=== PATIENT | male | born 1930 | race Caucasian/White ===

== ENCOUNTER 2016-07-28 07:14 | Day surgery (SDC) | payer MEDICARE ==
[~2016-07-28] VITALS: Ht 180.3 cm; Wt 83.5 kg
[2016-07-28] VITALS (13 sets, daily range): BP systolic 105–152; BP diastolic 55–74; PULSE 52–63; RESP 10–16; TEMP 96.8–98.2; O2SAT 91–97; Ht 180.3 cm; Wt 83.5 kg
[~2016-07-28 07:14] MED LIST: AMIO200T2 PO; AMLO5TAB2 PO; APIX5TAB PO; CALC1TAB40 PO; CHOL100018 PO; CYAN250010 PO; FENTANYL 100mcg/2ml INJECTION IV PRN; FISH1CAP51 PO; LIDOCAINE 1% (10mg/ml) 2ml SDV INJ ONE; LIDOCAINE 1%/EPI 1:100,000 20ml MDV ONE; LR 1,000 ML IV SCH; MAGN400T6 PO; MIDAZOLAM 5mg/5ml INJECTION IV PRN; OLME20TA15 PO
--- OUTSIDE RECORDS SUMMARY | 2016-07-28 07:18 | XMS REPORT | Continuity of Care Document ---
Author Author [facility] Organization [facility] Address Unknown Phone Unavailable Support Name Relationship Address Phone TENZIN LINDO DO Caregiver [address] [place] [address] Unavailable BRAYDEN MARMOLEJO MD Caregiver [address] [place] [address] [place] [address] Unavailable DRAGAN MCMANUS Next Of Kin [address] [place], [place] [id number] Insurance Providers Guarantor Remberto Mcmanus Address [address] [place] [address] Email NO TO PORTAL 16 Payer Medicare Policy Number [id number] Subscriber's Name Remberto Mcmanus Relationship [address] [facility] Policy Number [id number] Subscriber's Name Remberto Mcmanus Relationship 18 Self Advance Directives Directive Response Recorded Date/Time Advanced Directives Type None 05/18/16 12:15pm Chief Complaint and Reason for Visit Chief Complaint Fall Reason for Visit [id number] Fall on same level Problems Active Problems Medical Problem Onset Date Status Atrial fibrillation 03/21/2014 Acute Fall on same level Unknown Acute Forehead laceration Unknown Acute Multiple abrasions Unknown Acute Medications Current Home Medications Medication Dose Units Route Directions Days Qty Instructions Start Date Amiodarone Hcl 200 Mg Tablet 200 Mg Oral Daily 05/18/16 Amlodipine Besylate 5 Mg Tablet 5 Mg Oral Daily 12/25/15 Apixaban (Eliquis) 5 Mg Tablet 5 Mg Oral Twice A Day 12/25/15 Benzonatate 100 Mg Capsule 100 Mg Oral Three Times A Day as needed for Cough 05/18/16 Calcium Citrate/Vitamin D3 (Citracal + D Caplet) 1 Each Tablet 1 Tab Oral Daily 06/05/13 Cholecalciferol (Vitamin D3) 1,000 Unit Tablet 1 Tab Oral Daily 03/20/14 Cyanocobalamin (Vitamin B-12) (Vitamin B12) Unknown Strength Tablet Unknown Dose Oral Daily 05/18/16 Magnesium Oxide Unknown Strength Tablet Unknown Dose Oral Daily 05/18/16 Olmesartan Medoxomil 20 Mg Tablet 20 Mg Oral Daily 05/18/16 [place]-3 Fatty Acids/Fish Oil ([place] 3 Fish Oil Softgel) 1 Each Capsule.dr Lo Tab Oral Twice A Day 06/05/13 Past Home Medications Medication Directions Ordered Status Amiodarone Hcl (Pacerone) 200 Mg Tablet, 400 Mg Oral Three Times A Day for Last Dose 03/27/14 Pm 03/21/14 Discontinued Metoprolol Tartrate 25 Mg Tablet, 12.5 Mg Oral Twice A Day 03/20/14 Discontinued Social History Social History Problem Response Recorded Date/Time Onset Date Status Chewing Tobacco Status No 06/11/2013 7:39am Not Applicable Not Applicable Hx Substance Use No 05/18/2016 12:15pm Not Applicable Not Applicable Hx Alcohol Use Y 2 BEERS PER DAY 05/18/2016 12:15pm Not Applicable Not Applicable Has the pt used tobacco in the last 12 months No 12/26/2015 7:28am Not Applicable Not Applicable Query Response Start Date Stop Date Smoking Status Never smoker Hospital Discharge Instructions No hospital discharge instructions. Plan of Care Discharge Date 05/18/16 2:59pm Disposition 01 DISCHARGED HOME, SELF-CARE Condition at Discharge Improved Instructions/Education Provided How to Care for a Laceration After Repair Prescriptions See Medication Section Referrals TENZIN LINDO DO Address: [address] [place] [address], [place] [phone] Note: Call for appointment sutures out in one week Care Plan and Goals Physician Care Plan Problem: Fall from same, laceration repair, multiple abrasions Goal: Follow up with primary care provider Instructions: Take medications and follow care plan as discussed/written Functional Status No functional status results. Allergies, Adverse Reactions, Alerts No known allergies. Immunizations Immunization Event Date Type Not Given Reason Dose Number Lot Number Auto Glass [employer]er VIS Given Td (adult), adsorbed 05/18/16 Administered 1 [id number] [employer] 05/18/16 Query Response on File Recorded Date/Time Hx Influenza Vaccination Y JAN 2015 12/26/15 7:28am Hx Pneumococcal Vaccination No 12/26/15 7:28am Hx Tetanus, Diptheria, Pertussis No 04/12/14 2:07pm Hx Influenza Vaccination Y JAN 2015 12/26/15 7:28am Hx Tetanus Diptheria Y 05/18/16 05/18/16 2:56pm Hx Tetanus, Diptheria, Pertussis No 04/12/14 2:07pm Hx Tetanus Toxoid Vaccination No 05/18/16 2:56pm Tetanus Diptheria Vaccine History 05/18/16 05/18/16 1:16pm Vital Signs Acute Vital Signs Vital Response Date/Time Temperature (Fahrenheit) 98.2 deg F (96.8 - 99.1) 05/18/2016 12:15pm Temperature (Calculated Celsius) 36.36433 degrees C (36.0 - 37.3) 05/18/2016 12:15pm Pulse Rate (adult) 70 bpm (60 - 100) 05/18/2016 2:58pm Respiratory Rate 16 breaths/min (10 - 20) 05/18/2016 2:58pm O2 Sat by Pulse Oximetry 93 % (90 - 100) 05/18/2016 2:58pm Blood Pressure 153/67 mm Hg 05/18/2016 2:58pm Height (Feet) 6 feet 05/18/2016 12:15pm Height (Inches) 0 inches 05/18/2016 12:15pm Weight (Kilograms) 81.800 kg 05/18/2016 12:15pm Body Mass Index (BMI) 24.0 05/18/2016 12:15pm Results Name: REMBERTO MCMANUS Unit #: [id number] : 1930 Sex: M Admit Date: Loc / Svc: ED Discharge Date: DIAGNOSTIC IMAGING REPORT Report #: [id number] [facility] Per NAHUN Indication: ITS.REASON: fall anterior scalp injury anticoagulated PROCEDURE: CT HEAD W/O CONTRAST: Encounter: Initial Comparison: None Technique: Axial CT images through the head were performed without contrast. Iterative Reconstruction dose reducing technique was utilized. FINDINGS: Moderate generalized atrophy. The ventricles are of normal size, shape, and configuration for the patient's age. There is no evidence of acute intracranial hemorrhage, midline displacement, or mass effect. There are scattered areas of low attenuation in the white matter which most likely represent changes of chronic microvascular ischemia. The CT attenuation of the brain parenchyma is otherwise normal within the cerebellum, brain stem, and cerebral hemispheres. The tympanic cavities and mastoid air cells are free of appreciable disease. There are no definite fractures of the skull base, calvarium, or visualized portion of the midface. Right-sided sinus surgery and evidence of chronic sinusitis. Right frontal scalp laceration. IMPRESSION: No CT evidence of acute traumatic intracranial injury. . Procedures Procedure Status Date Provider(s) Chest x-ray 2vw frontal&latl Completed 04/07/16 Encounters Encounter Location Arrival/Admit Date Discharge/Depart Date Attending Provider Registered Emergency Room [facility] 05/18/16 12:12pm BRAYDEN MARMOLEJO MD Registered Clinic [facility] 04/07/16 12:20pm VINNY GIORDANO Recent Diagnosis
--- OUTSIDE RECORDS SUMMARY | 2016-07-28 07:18 | XMS REPORT | Continuity of Care Document ---
Author Author [facility] Organization [facility] Address Unknown Phone Unavailable Support Name Relationship Address Phone DARION SULLIVAN MD Caregiver [facility] [address] [place] [address] [address] [place] [address] TASHA LOERA DO Caregiver [facility] [address] [place] [address] [address] [place] [address] DRAGAN MCMANUS Next Of Kin [address] [place] [address] Insurance Providers Payer Name Policy Number Subscriber Name Relationship Medicare [id number] Remberto Mcmanus 18 Self [facility] [id number] Remberto Mcmanus 18 Self Advance Directives Directive Response Recorded Date/Time Ordered Resuscitation Status Full Code 03/20/14 8:29am Chief Complaint and Reason for Visit Chief Complaint ATRIAL FIB Reason for Visit Atrial fibrillation Problems Medical Problems Problem Onset Date Status Atrial fibrillation 03/21/2014 Active Medications Medication Dose Route Sig Days/Qty Instructions Order Date Discontinued Date Status Olmesartan Medoxomil 10 Mg PO NEEDED 06/05/13 Active Aspirin 81 Mg PO DAILY 06/05/13 Active Calcium Citrate/Vitamin D3 2 Each PO DAILY 06/05/13 Active [place]-3 Fatty Acids/Fish Oil 2 Each PO TWICE A DAY 06/05/13 Active Trazodone HCl 50 Mg PO BEDTIME 03/14/14 Active Docusate Sodium 2 Tab PO TWICE A DAY 03/15/14 Active Sennosides 2 Tab PO DAILY 03/15/14 Active Metoprolol Tartrate 12.5 Mg PO TWICE A DAY 60 Qty 03/20/14 03/21/14 Discontinued Cholecalciferol 2 Tab PO TWICE A DAY 03/20/14 Active Amiodarone HCl 400 Mg PO THREE TIMES A DAY For Last dose 03/27/14 PM 6 Days 03/21/14 Active Amiodarone HCl 200 Mg PO DAILY For First dose 03/28/14 AM 30 Qty Active Social History Social History Problem Response Recorded Date/Time Smoking Status Heavy Smoker 03/20/2014 8:27am When did patient START smoking? 38 yrs old 03/20/2014 8:27am When did patient STOP smoking? 68 yrs old 03/20/2014 8:27am Chewing Tobacco Status No 06/11/2013 7:39am Hx Substance Use No 03/14/2014 9:49am Hx Alcohol Use Y BEER OCCASIONALLY 03/14/2014 9:49am Has the pt used tobacco in the last 12 months No 03/20/2014 8:27am Query Response Start Date Stop Date Smoking Status Former smoker Hospital Discharge Instructions Instructions: Care Instructions: Reason for Hospitalization: Atrial Fibrillation I was in the hospital because (patient own words): to check the heart rhythm Discharge Diet: Heart Healthy Discharge Activity: No restrictions. Follow Up Appointments: Keep scheduled appointments as directed or call [phone] to schedule an appointment in the next month. Condition at time of discharge: Fair Plan of Care Discharge Date 03/21/14 11:55am Disposition 01 DISCHARGED HOME, SELF-CARE Instructions/Education Provided Atrial Fibrillation Prescriptions See Medications Section Functional Status Query Response Date Recorded Physical Hygiene Self March 21, 2014 11:27am Disabilities Hearing March 21, 2014 11:27am Devices Used Glasses March 21, 2014 11:27am Dressing Self March 21, 2014 11:27am Ambulation Self March 21, 2014 11:27am Diet Self March 21, 2014 11:27am Mental Status Alert Oriented March 21, 2014 11:27am Disabilities Hearing March 21, 2014 11:27am Devices Used Glasses March 21, 2014 11:27am Physical Hygiene Self March 21, 2014 11:27am Dressing Self March 21, 2014 11:27am Ambulation Self March 21, 2014 11:27am Diet Self March 21, 2014 11:27am Allergies, Adverse Reactions, Alerts Allergen Type Severity Reaction Status Last Updated No Known Allergies Active 03/20/14 Immunizations Name Given Type Hx Influenza Vaccination Y 2013 Historical Hx Pneumococcal Vaccination Y MAY 2013 Historical Hx Influenza Vaccination Y 2013 Historical Vital Signs Acute Vital Signs Vital Response Date/Time Temperature (Fahrenheit) 97.1 deg F (96.8 - 99.1) Temperature (Calculated Celsius) 36.27047 degrees C (36.0 - 37.3) Temperature Source Temporal Pulse Rate (adult) 60 bpm (60 - 100) Respiratory Rate 21 breaths/min (10 - 20) O2 Sat by Pulse Oximetry 94 % (90 - 100) Oxygen Delivery Method Room Air Blood Pressure 161/79 mm Hg Blood Pressure Source Automatic Cuff Height 5 ft 11.5 in Weight 166 lb Body Mass Index 22.0 kg/m^2 Results Test Source Date Result Interp. Ref. Range Comments Alanine Aminotransferase (ALT/SGPT) March 20, 2014 8:43am 64 U/L N 21 -72 COMMENT NURSE WILL CALL WHEN PT ARRIVES Albumin March 20, 2014 8:43am 3.8 G/DL N 3.5-5.0 COMMENT NURSE WILL CALL WHEN PT ARRIVES Albumin/Globulin Ratio March 20, 2014 8:43am 1.5 RATIO N 1.1-2.2 COMMENT NURSE WILL CALL WHEN PT ARRIVES Alkaline Phosphatase March 20, 2014 8:43am 53 U/L N 38-126 COMMENT NURSE WILL CALL WHEN PT ARRIVES Anion Gap March 21, 2014 4:46am 7 MEQ/L N 5-15 Aspartate Amino Transf (AST/SGOT) March 20, 2014 8:43am 29 U/L N 17- 59 COMMENT NURSE WILL CALL WHEN PT ARRIVES BUN/Creatinine Ratio March 21, 2014 4:46am 18 RATIO N 6-26 Basophils # (Auto) March 20, 2014 8:43am 0.1 T/MM3 N 0-0.2 COMMENT NURSE WILL CALL WHEN PATIENT ARRIVES Basophils (%) (Auto) March 20, 2014 8:43am 0.8 % N 0-2 COMMENT NURSE WILL CALL WHEN PATIENT ARRIVES Blood Urea Nitrogen March 21, 2014 4:46am 20.0 MG/DL N 9-20 Calcium Level March 21, 2014 4:46am 9.3 MG/DL N 8.4-10.2 Calculated Osmolality March 21, 2014 4:46am 264 MOSM/KG N 261-280 Carbon Dioxide Level March 21, 2014 4:46am 27 MEQ/L N 22-30 Chemistry Specimen Hemolysis March 21, 2014 4:46am < 15 0-25 0-25 : No Hemolysis.26-70: Slight Hemolysis - can falsely elevate K and Urine Protein. 71-285: Moderate Hemolysis - can falsely elevate K, Troponin I, CA 19-9, PTH, CSF GLucose, and Urine Protein, and can falsely decrease Phenytoin. 286-999: Gross Hemolysis - can falsely elevate K, Troponin I, CA 19-9, PTH, CSF Glucose, and Urine Protine, and can falsely decrease Phenytoin. Recommend specimen recollection. Chloride Level March 21, 2014 4:46am 102 MEQ/L N 98-107 Creatine Kinase MB March 15, 2014 12:25pm 2.0 NG/ML N 0-3.4 COMMENT already have blood Creatinine March 21, 2014 4:46am 1.1 MG/DL N 0.8-1.5 Eosinophils # (Auto) March 20, 2014 8:43am 0.1 T/MM3 N 0-0.5 COMMENT NURSE WILL CALL WHEN PATIENT ARRIVES Eosinophils (%) (Auto) March 20, 2014 8:43am 1.1 % N 0-4 COMMENT NURSE WILL CALL WHEN PATIENT ARRIVES Free Thyroxine March 20, 2014 8:43am 1.00 NG/DL N 0.78-2.19 COMMENT NURSE WILL CALL WHEN PT ARRIVES Globulin March 20, 2014 8:43am 2.5 G/DL N 2.4-3.6 COMMENT NURSE WILL CALL WHEN PT ARRIVES Glomerular Filtration Rate Calc March 21, 2014 4:46am 64 - Glucose Level March 21, 2014 4:46am 86 MG/DL N 75-110 Hematocrit March 20, 2014 8:43am 42.7 % N 41-53 COMMENT NURSE WILL CALL WHEN PATIENT ARRIVES Hemoglobin March 20, 2014 8:43am 14.8 GM/DL N 13.5-17.5 COMMENT NURSE WILL CALL WHEN PATIENT ARRIVES Icterus Index March 21, 2014 4:46am < 2 0-7 Immature Granulocyte # (Auto) March 20, 2014 8:43am 0.00 T/MM3 N 0.00 -0.03 COMMENT NURSE WILL CALL WHEN PATIENT ARRIVES Immature Granulocyte % (Auto) March 20, 2014 8:43am 0.0 % N 0.0-0.5 COMMENT NURSE WILL CALL WHEN PATIENT ARRIVES Lymphocytes # (Auto) March 20, 2014 8:43am 1.2 T/MM3 N 1-4.8 COMMENT NURSE WILL CALL WHEN PATIENT ARRIVES Lymphocytes (%) (Auto) March 20, 2014 8:43am 18.3 % L 23-45 COMMENT NURSE WILL CALL WHEN PATIENT ARRIVES Magnesium Level March 21, 2014 4:46am 2.0 MG/DL N 1.6-2.3 Mean Corpuscular Hemoglobin March 20, 2014 8:43am 33.0 UUG N 26-34 COMMENT NURSE WILL CALL WHEN PATIENT ARRIVES Mean Corpuscular Hemoglobin Concent March 20, 2014 8:43am 34.7 GM/DL N 31-37 COMMENT NURSE WILL CALL WHEN PATIENT ARRIVES Mean Corpuscular Volume March 20, 2014 8:43am 95.3 UM3 N 80-100 COMMENT NURSE WILL CALL WHEN PATIENT ARRIVES Mean Platelet Volume March 20, 2014 8:43am 11.7 UM3 N 9.4-12.4 COMMENT NURSE WILL CALL WHEN PATIENT ARRIVES Monocytes # (Auto) March 20, 2014 8:43am 0.6 T/MM3 N 0-0.8 COMMENT NURSE WILL CALL WHEN PATIENT ARRIVES Monocytes (%) (Auto) March 20, 2014 8:43am 8.3 % N 0-9.0 COMMENT NURSE WILL CALL WHEN PATIENT ARRIVES Neutrophils # (Auto) March 20, 2014 8:43am 4.8 T/MM3 N 1.8-7.7 COMMENT NURSE WILL CALL WHEN PATIENT ARRIVES Neutrophils (%) (Auto) March 20, 2014 8:43am 71.5 % H 33-66 COMMENT NURSE WILL CALL WHEN PATIENT ARRIVES Platelet Count March 20, 2014 8:43am 108 T/MM3 L 130-400 COMMENT NURSE WILL CALL WHEN PATIENT ARRIVES Potassium Level March 21, 2014 4:46am 4.0 MEQ/L N 3.6-5 RDW Standard Deviation March 20, 2014 8:43am 41.3 FL N 36.9-50.2 COMMENT NURSE WILL CALL WHEN PATIENT ARRIVES Red Blood Count March 20, 2014 8:43am 4.48 M/MM3 L 4.50-5.90 COMMENT NURSE WILL CALL WHEN PATIENT ARRIVES Sodium Level March 21, 2014 4:46am 136 MEQ/L N 134-144 Thyroid Stimulating Hormone (TSH) March 20, 2014 8:43am 2.01 MIU/L N 0.47-4.68 COMMENT NURSE WILL CALL WHEN PT ARRIVES Total Bilirubin March 20, 2014 8:43am 0.70 MG/DL N 0.20-1.30 COMMENT NURSE WILL CALL WHEN PT ARRIVES Total Creatine Kinase March 15, 2014 12:25pm 60 U/L N 55-170 COMMENT already have blood Total Protein March 20, 2014 8:43am 6.3 G/DL N 6.3-8.2 COMMENT NURSE WILL CALL WHEN PT ARRIVES Troponin I March 15, 2014 12:25pm < 0.012 ng/ml 0-0.12 COMMENT already have blood Turbidity March 21, 2014 4:46am < 20 0-20 White Blood Count March 20, 2014 8:43am 6.7 T/MM3 N 4.5-11.0 COMMENT NURSE WILL CALL WHEN PATIENT ARRIVES Name: REMBERTO MCMANUS Unit #: [id number] : 1930 Sex: M Loc / Svc: SRG DOS: 03/15/14 Signed Report #: [id number] DIAGNOSTIC IMAGING REPORT TYPE OF EXAM: CHEST, PA & LATERAL Dictated By: FABIAN BOATENG MD INDICATION: ITS.REASON: irregular heart rhythm COMPARISON: none. CHEST, PA LATERAL: Tortuous thoracic aorta. Normal heart size. No evidence of lung infiltrate or CHF. There are monitoring leads. IMPRESSION: Normal for age. . Procedures Procedure Status Date Provider(s) ROUTINE VENIPUNCTURE completed 03/15/14 CHEST X-RAY 2VW FRONTAL&LATL completed 03/15/14 METABOLIC PANEL TOTAL CA completed 03/15/14 ASSAY OF CK (CPK) completed 03/15/14 CREATINE MB FRACTION completed 03/15/14 ASSAY OF MAGNESIUM completed 03/15/14 ASSAY THYROID STIM HORMONE completed 03/15/14 ASSAY OF TROPONIN QUANT completed 03/15/14 COMPLETE CBC W/AUTO DIFF WBC completed 03/15/14 ELECTROCARDIOGRAM TRACING completed 03/15/14 TTE W/DOPPLER COMPLETE completed 03/15/14 [id number]"RINGERS LACTATE INFUSION, UP TO 1000 CC" completed 03/15/14 Encounters Encounter Location Date/Time Discharged Inpatient [facility] 03/20/14 8:03am Recent Diagnosis Atrial fibrillation
--- OUTSIDE RECORDS SUMMARY | 2016-07-28 07:18 | XMS REPORT | Continuity of Care Document ---
Author Author [facility] LIVE Organization [facility]IVE Address Unknown Phone Unavailable Support Name Relationship Address Phone DARION SULLIVAN MD Caregiver [facility] [address] [place] [address] ADRIENNE SALAZAR [address] [place], [place] [phone] TASHA LOERA DO Caregiver [facility] [address] [place] [address] [address] [place], [place] [phone] DRAGAN MCMANUS Next Of Kin [address] [place] [address] Insurance Providers Payer Name Policy Number Subscriber Name Relationship Medicare [id number] Remberto Mcmanus 18 Self [facility] [id number] Remberto Mcmanus 18 Self Advance Directives Directive Response Recorded Date/Time Ordered Resuscitation Status Full Code 04/12/14 1:50pm Resuscitation Documents on File N pt verbally states Full Code 04/12/14 2: 03pm Problems Medical Problems Problem Onset Date Status Atrial fibrillation 03/21/2014 Active Medications Medication Dose Route Sig Days/Qty Instructions Order Date Discontinued Date Status Olmesartan Medoxomil 10 Mg PO NEEDED 06/05/13 Active Aspirin 81 Mg PO DAILY 06/05/13 Active Calcium Citrate/Vitamin D3 2 Each PO DAILY 06/05/13 Active [place]-3 Fatty Acids/Fish Oil 2 Each PO TWICE [...] Last dose 03/27/14 PM 6 Days 03/21/14 04/12/14 Discontinued Amiodarone HCl 200 Mg PO DAILY For First dose 03/28/14 AM 30 Qty Active Social History Social History Problem Response Recorded Date/Time Chewing Tobacco Status No 06/11/2013 7:39am Hx Substance Use No 03/14/2014 9:49am Hx Alcohol Use Y BEER OCCASIONALLY 03/14/2014 9:49am Has the pt used tobacco in the last 12 months No 04/12/2014 2:10pm Query Response Start Date Stop Date Smoking Status Former smoker Hospital Discharge Instructions Instructions: Care Instructions: Reason for Hospitalization: Atrial Fibrillation I was in the hospital because (patient own words): to check the heart rhythm Discharge Diet: Heart Healthy Discharge Activity: No restrictions. Follow Up Appointments: Keep scheduled appointments as directed or call [phone] to schedule an appointment in the next month. Condition at time of discharge: Fair Wound/Incision Care: USUAL CARE FOR CHRONIC RASH OF HIS BACK Notify Physician If: SIGNIFICANT NEW OR WORSENING SYMPTOMS Condition at time of discharge: Good General Information: n/a Condition at time of discharge: Fair Condition at time of discharge: Good rate >100, confusion, or persistent nausea/vomitting. 2.Severe pain, swelling, redness, or warmth in either of your legs. 3.During office hours, call [phone]. After hours, please call [facility] at [phone], and have the hot sealing machine operator page your Surgeon IN THE EVENT OF AN EMERGENCY, seek medical care at the nearest Emergency Room Condition at time of discharge: Good Plan of Care Discharge Date 03/21/14 11:55am Instructions/Education Provided Atrial Fibrillation Prescriptions See Medications Section Functional Status Query Response Date Recorded Physical Hygiene Self March 21, 2014 11:27am Physical Hygiene Self March 21, 2014 11:27am Allergies, Adverse Reactions, Alerts Allergen Type Severity Reaction Status Last Updated No Known Allergies Active 03/20/14 Immunizations Name Given Type Hx Influenza Vaccination Y 03/15 Historical Hx Pneumococcal Vaccination Y 02/11 Historical Hx Tetanus, Diptheria, Pertussis No Historical Hx Influenza Vaccination Y 03/15 Historical Hx Tetanus Diptheria No Historical Hx Tetanus, Diptheria, Pertussis No Historical Hx Tetanus Toxoid Vaccination No Historical Vital Signs Acute Vital Signs Vital Response Date/Time Temperature (Fahrenheit) 98.1 deg F (96.8 - 99.1) Temperature (Calculated Celsius) 36.07060 degrees C (36.0 - 37.3) Temperature Source Temporal Pulse Rate (adult) 71 bpm (60 - 100) Respiratory Rate 21 breaths/min (10 - 20) O2 Sat by Pulse Oximetry 92 % (90 - 100) Oxygen Delivery Method Room Air Blood Pressure 164/74 mm Hg Blood Pressure Source Automatic Cuff Height 5 ft 11.75 in Weight 166 lb Body Mass Index [...] WILL CALL WHEN PT ARRIVES Anion Gap April 12, 2014 1:58pm 5 MEQ/L N 5-15 Aspartate Amino Transf (AST/SGOT) March 20, 2014 8:43am 29 U/L N 17- 59 COMMENT NURSE WILL CALL WHEN PT ARRIVES BUN/Creatinine Ratio April 12, 2014 1:58pm 16 RATIO N 6-26 Basophils # (Auto) April 12, 2014 1:58pm 0.0 T/MM3 N 0-0.2 Basophils (%) (Auto) April 12, 2014 1:58pm 0.4 % N 0-2 Blood Urea Nitrogen April 12, 2014 1:58pm 16.0 MG/DL N 9-20 Calcium Level April 12, 2014 1:58pm 9.4 MG/DL N 8.4-10.2 Calculated Osmolality April 12, 2014 1:58pm 265 MOSM/KG N 261-280 Carbon Dioxide Level April 12, 2014 1:58pm 29 MEQ/L N 22-30 Chemistry Specimen Hemolysis April 12, 2014 1:58pm < 15 0-25 0-25 : No Hemolysis.26-70: [...] decrease Phenytoin. Recommend specimen recollection. Chloride Level April 12, 2014 1:58pm 103 MEQ/L N 98-107 Creatine Kinase MB March 15, 2014 12:25pm 2.0 NG/ML N 0-3.4 COMMENT already have blood Creatinine April 12, 2014 1:58pm 1.0 MG/DL N 0.8-1.5 Eosinophils # (Auto) April 12, 2014 1:58pm 0.2 T/MM3 N 0-0.5 Eosinophils (%) (Auto) April 12, 2014 1:58pm 2.1 % N 0-4 Free Thyroxine March 20, 2014 8:43am 1.00 NG/DL N 0.78-2.19 COMMENT NURSE WILL CALL WHEN PT ARRIVES Globulin March 20, 2014 8:43am 2.5 G/DL N 2.4-3.6 COMMENT NURSE WILL CALL WHEN PT ARRIVES Glomerular Filtration Rate Calc April 12, 2014 1:58pm 71 - Glucose Level April 12, 2014 1:58pm 105 MG/DL N 75-110 Hematocrit April 12, 2014 1:58pm 41.3 % N 41-53 Hemoglobin April 12, 2014 1:58pm 14.3 GM/DL N 13.5-17.5 Icterus Index April 12, 2014 1:58pm < 2 0-7 Immature Granulocyte # (Auto) April 12, 2014 1:58pm 0.03 T/MM3 N 0.00 -0.03 Immature Granulocyte % (Auto) April 12, 2014 1:58pm 0.3 % N 0.0-0.5 Lymphocytes # (Auto) April 12, 2014 1:58pm 0.7 T/MM3 L 1-4.8 Lymphocytes (%) (Auto) April 12, 2014 1:58pm 7.2 % L 23-45 Magnesium Level March 21, 2014 4:46am 2.0 MG/DL N 1.6-2.3 Mean Corpuscular Hemoglobin April 12, 2014 1:58pm 33.3 UUG N 26-34 Mean Corpuscular Hemoglobin Concent April 12, 2014 1:58pm 34.6 GM/DL N 31-37 Mean Corpuscular Volume April 12, 2014 1:58pm 96.0 UM3 N 80-100 Mean Platelet Volume April 12, 2014 1:58pm 10.8 UM3 N 9.4-12.4 Monocytes # (Auto) April 12, 2014 1:58pm 0.6 T/MM3 N 0-0.8 Monocytes (%) (Auto) April 12, 2014 1:58pm 6.6 % N 0-9.0 Neutrophils # (Auto) April 12, 2014 1:58pm 7.7 T/MM3 N 1.8-7.7 Neutrophils (%) (Auto) April 12, 2014 1:58pm 83.4 % H 33-66 Platelet Count April 12, 2014 1:58pm 109 T/MM3 L 130-400 Potassium Level April 12, 2014 1:58pm 4.4 MEQ/L N 3.6-5 RDW Standard Deviation April 12, 2014 1:58pm 41.7 FL N 36.9-50.2 Red Blood Count April 12, 2014 1:58pm 4.30 M/MM3 L 4.50-5.90 Sodium Level April 12, 2014 1:58pm 137 MEQ/L N 134-144 Thyroid Stimulating Hormone (TSH) [...] ng/ml 0-0.12 COMMENT already have blood Turbidity April 12, 2014 1:58pm < 20 0-20 White Blood Count April 12, 2014 1:58pm 9.3 T/MM3 N 4.5-11.0 Name: REMBERTO MCMANUS Unit #: [id number] : 1930 Sex: M Loc / Svc: Ruby DOS: 03/15/14 Signed Report #: [id number] DIAGNOSTIC IMAGING REPORT TYPE OF EXAM: CHEST, PA & LATERAL Dictated By: FABIAN BOATENG MD INDICATION: ITS.REASON: irregular heart rhythm COMPARISON: none. CHEST, PA LATERAL: Tortuous thoracic aorta. Normal heart size. No evidence of lung infiltrate or CHF. There are monitoring leads. IMPRESSION: Normal for age. . Procedures Procedure Status Date Provider(s) ROUTINE VENIPUNCTURE completed 03/20/14 ROUTINE VENIPUNCTURE completed 03/20/14 METABOLIC PANEL TOTAL CA completed 03/20/14 COMPREHEN METABOLIC PANEL completed 03/20/14 ASSAY OF MAGNESIUM completed 03/20/14 ASSAY OF MAGNESIUM completed 03/20/14 ASSAY OF FREE THYROXINE completed 03/20/14 ASSAY THYROID STIM HORMONE completed 03/20/14 COMPLETE CBC W/AUTO DIFF WBC completed 03/20/14 ELECTROCARDIOGRAM TRACING completed 03/20/14 ELECTROCARDIOGRAM TRACING completed 03/20/14 [id number] ITEM OR SERVICE completed 03/20/14 [id number] ITEM OR SERVICE completed 03/20/14 [id number] ITEM OR SERVICE completed 03/20/14 [id number] ITEM OR SERVICE completed 03/20/14 [id number]"HOSPITAL OBSERVATION SERVICE, PER HOUR" completed 03/20/14 [id number]"HOSPITAL OBSERVATION SERVICE, PER HOUR" completed 03/20/14 [id number]"HOSPITAL OBSERVATION SERVICE, PER HOUR" completed 03/20/14 [id number]"HOSPITAL OBSERVATION SERVICE, PER HOUR" completed 03/20/14 [id number]"HOSPITAL OBSERVATION SERVICE, PER HOUR" completed 03/20/14 [id number] ADMISSION OF PATIENT FOR HOSPITAL OBSERVATION C completed Inguinal hernia repair completed 03/15/14 AZRA GOODE MD Encounters Encounter Location Date/Time Departed Clinic [facility] 04/12/14 12:57pm Discharged Inpatient [facility] 03/20/14 8:03am Registered Clinic [facility] 03/15/14 11:26am
--- OUTSIDE RECORDS SUMMARY | 2016-07-28 07:18 | XMS REPORT | Continuity of Care Document ---
Author Author [facility] Organization [facility] Address Unknown Phone Unavailable Support Name Relationship Address Phone AZRA GOODE MD Caregiver [facility] [address] [place] [phone] TASHA LOERA DO Caregiver [address] [place] [id number] DRAGAN MCMANUS Next Of Kin [address] [place], [place] [phone] Insurance Providers Payer Name Policy Number Subscriber Name Relationship Medicare [id number] Remberto Mcmanus 18 Self [facility] [id number] Remberto Mcmanus Self Advance Directives Directive Response Recorded Date/Time Ordered Resuscitation Status Full Code 05/09/14 12:27pm Resuscitation Documents on File No 05/09/14 8:36am Problems Medical Problems Problem Onset Date Status Atrial fibrillation 03/21/2014 Active Medications Medication Dose Route Sig Days/Qty Instructions Order Date Discontinued Date Status Olmesartan Medoxomil 10 Mg PO DAILY 06/05/13 Active Aspirin 81 Mg PO DAILY 06/05/13 Active Calcium Citrate/Vitamin D3 2 Each PO DAILY 06/05/13 Active [place]-3 Fatty Acids/Fish Oil 2 Each PO TWICE A DAY 06/05/13 Active Docusate Sodium 2 Tab PO TWICE A DAY 03/15/14 Active Sennosides 2 Tab PO NEEDED 03/15/14 Active Metoprolol Tartrate 12.5 Mg PO TWICE A DAY 60 Qty 03/20/14 03/21/14 Discontinued Cholecalciferol 2 Tab PO DAILY 03/20/14 Active Amiodarone HCl 400 Mg PO THREE TIMES A DAY For Last dose 03/27/14 PM 6 Days 03/21/14 04/12/14 Discontinued Amiodarone HCl 200 Mg PO DAILY For First dose 03/28/14 AM 30 Qty Active Polyethylene Glycol 3350 17 G PO NEEDED Take 17 Grams (1 capful), by mouth, once a day. 05/10/14 Active Glycerin 1 Supp RC NEEDED 05/10/14 Active Social History Social History Problem Response Recorded Date/Time Chewing Tobacco Status No 06/11/2013 7:39am Hx Substance Use No 05/09/2014 8:35am Hx Alcohol Use Y BEER OCCASIONALLY 05/09/2014 8:35am Has the pt used tobacco in the last 12 months No 05/09/2014 8:35am Query Response Start Date Stop Date Smoking Status Never smoker Hospital Discharge Instructions Instructions: Care Instructions: Reason for Hospitalization: Atrial Fibrillation I was in the hospital because (patient own words): to check the heart rhythm Discharge Diet: Heart Healthy Discharge Activity: No restrictions. Follow Up Appointments: Keep scheduled appointments as directed or call [phone] to schedule an appointment in the next month. Condition at time of discharge: Fair Good Notify Physician If: During the week: If you have questions about your care or wound, Call Dr. Goode's office at [phone]. During the evening or on the weekends: If you have questions about your care or wound, Call [facility] at [phone] and have the fur mixer operator page Dr. Goode. Condition at time of discharge: Good 7.2 Congenital Heart Disease Screening Result: Pass Plan of Care Discharge Date 03/21/14 11:55am [...] Vital Signs Vital Response Date/Time Temperature (Fahrenheit) 98.3 deg F (96.8 - 99.1) Temperature (Calculated Celsius) 36.14549 degrees C (36.0 - 37.3) Temperature Source Temporal Pulse Rate (adult) 65 bpm (60 - 100) Respiratory Rate 16 breaths/min (10 - 20) O2 Sat by Pulse Oximetry 95 % (90 - 100) Oxygen Delivery Method Room Air Blood Pressure 154/74 mm Hg Blood Pressure Source Automatic Cuff Height 6 ft 0 in Weight 163 lb Body Mass Index 22.0 kg/m^2 Results [...] 12, 2014 1:58pm 29 MEQ/L N 22-30 Chloride Level April 12, 2014 1:58pm 103 [...] COMMENT NURSE WILL CALL WHEN PT ARRIVES Glucose Level April 12, 2014 1:58pm 105 MG/DL N 75-110 Hematocrit April 12, 2014 1:58pm 41.3 % N 41-53 Hemoglobin April 12, 2014 1:58pm 14.3 GM/DL N 13.5-17.5 Lymphocytes # (Auto) April 12, 2014 1:58pm [...] 0.012 ng/ml 0-0.12 COMMENT already have blood White Blood Count April 12, 2014 1:58pm 9.3 T/MM3 N 4.5-11.0 Chemistry Specimen Hemolysis April 12, 2014 1:58pm [...] can falsely decrease Phenytoin. Recommend specimen recollection. Turbidity April 12, 2014 1:58pm < 20 0-20 Glomerular Filtration Rate Calc April 12, 2014 1:58pm 71 - Immature Granulocyte # (Auto) April 12, 2014 1:58pm 0.03 T/MM3 N 0.00 -0.03 Immature Granulocyte % (Auto) April 12, 2014 1:58pm 0.3 % N 0.0-0.5 Icterus Index April 12, 2014 1:58pm < 2 0-7 Name: REMBERTO MCMANUS Unit #: [id number] : 1930 Sex: M [facility]: SRG DOS: 03/15/14 Signed Report #: [id number] DIAGNOSTIC IMAGING REPORT TYPE OF EXAM: CHEST, [...] TRACING completed 03/20/14 ELECTROCARDIOGRAM TRACING completed 03/20/14 [id number] ITEM OR SERVICE completed 03/20/14 [id number] ITEM OR SERVICE completed 03/20/14 [id number] ITEM OR SERVICE completed 03/20/14 [id number] ITEM OR SERVICE completed 03/20/14 [id number]"HOSPITAL OBSERVATION SERVICE, PER HOUR" completed 03/20/14 [id number]"HOSPITAL OBSERVATION SERVICE, PER HOUR" completed 03/20/14 [id number]"HOSPITAL OBSERVATION SERVICE, PER HOUR" completed 03/20/14 [id number]"HOSPITAL OBSERVATION SERVICE, PER HOUR" completed 03/20/14 [id number]"HOSPITAL OBSERVATION SERVICE, PER HOUR" completed 03/20/14 [id number] ADMISSION OF PATIENT FOR HOSPITAL OBSERVATION C completed ROUTINE VENIPUNCTURE completed 04/12/14 METABOLIC PANEL TOTAL CA completed 04/12/14 COMPLETE CBC W/AUTO DIFF WBC completed 04/12/14 ELECTROCARDIOGRAM TRACING completed 04/12/14 L HRT ARTERY/VENTRICLE ANGIO completed 04/12/14 DARION SULLIVAN MD [id number] THAN PEEL-AWAY completed 04/12/14 [id number]"INJECTION, HEPARIN SODIUM, PER 1000 UNITS" completed 04/12/14 [id number]"INJECTION, MIDAZOLAM HYDROCHLORIDE, PER 1 MG" completed 04/12/14 [id number]"INJECTION, FENTANYL CITRATE, 0.1 MG" completed 04/12/14 [id number] DRUGS completed 04/12/14 [id number]"INFUSION, NORMAL SALINE SOLUTION , 1000 CC" completed 04/12/14 [id number]"LOW OSMOLAR CONTRAST MATERIAL, 300-399 MG/ML IODINE C completed Inguinal hernia repair completed 03/15/14 AZRA GOODE MD Inguinal hernia repair completed 05/10/14 AZRA GOODE MD Encounters Encounter Location Date/Time Departed [facility] 04/12/14 12:57pm Discharged Inpatient [facility] 03/20/14 8:03am Registered Clinic [facility] 03/15/14 11:26am
--- OUTSIDE RECORDS SUMMARY | 2016-07-28 07:18 | XMS REPORT | Continuity of Care Document ---
Author Author [facility]IVE Organization [facility] Address Unknown Phone Unavailable Support Name Relationship Address Phone AZRA GOODE MD Caregiver [facility] [address] [facility] ADRIENNE SALAZAR [address] [place] [phone] TASHA LOERA DO Caregiver [address] [place], [place] [id number] DRAGAN MCMANUS Next Of Kin [address] [place], [place] [phone] Insurance Providers Payer Name Policy Number Subscriber Name Relationship Medicare [id number] Remberto Mcmanus 18 Self [facility] [id number] Remberto Mcmanus 18 Self Advance Directives Directive Response Recorded Date/Time Ordered Resuscitation Status Full Code 03/14/14 11:39am Resuscitation Documents on File No 03/14/14 9:47am Problems No known problems or medical conditions. Medications Medication Dose Route Sig Days/Qty Instructions Order Date Discontinued Date Status Rosuvastatin Calcium 2.5 Mg PO BEDTIME 06/05/13 Active Olmesartan Medoxomil 10 Mg PO DAILY 06/05/13 Active Aspirin 81 Mg PO DAILY 06/05/13 Active Calcium Citrate/Vitamin D3 2 Each PO DAILY 06/05/13 Active [place]-3 Fatty Acids/Fish Oil 2 Each PO TWICE A DAY 06/05/13 Active Ca Cmb No.1/Vit D3/B-6/Fa/B12 2 Each PO DAILY 06/05/13 Active Trazodone HCl 50 Mg PO BEDTIME 03/14/14 Active Docusate Sodium 2 Tab PO TWICE A DAY 03/15/14 Active Sennosides 2 Tab PO DAILY 03/15/14 Active Social History Social History Problem Response Recorded Date/Time Smoking Status Former smoker 03/14/2014 9:49am Chewing Tobacco Status No 06/11/2013 7:39am Hx Substance Use No 03/14/2014 9:49am Hx Alcohol Use Y BEER OCCASIONALLY 03/14/2014 9:49am Has the pt used tobacco in the last 12 months No 03/14/2014 9:49am Query Response Start Date Stop Date Smoking Status Former smoker Hospital Discharge Instructions No hospital discharge instructions. Plan of Care No plan of care. Functional Status No functional status results. Allergies, Adverse Reactions, Alerts Allergen Type Severity Reaction Status Last Updated No Known Allergies Active 03/15/14 Immunizations Name Given Type Hx Influenza Vaccination Y MAY 2013 Historical Hx Pneumococcal Vaccination Y MAY 2013 Historical Hx Influenza Vaccination Y MAY 2013 Historical Vital Signs Acute Vital Signs Vital Response Date/Time Temperature (Fahrenheit) 97.5 deg F (96.8 - 99.1) Temperature (Calculated Celsius) 36.97935 degrees C (36.0 - 37.3) Temperature Source Temporal Pulse Rate (adult) 138 bpm (60 - 100) Respiratory Rate 18 breaths/min (10 - 20) O2 Sat by Pulse Oximetry 97 % (90 - 100) Oxygen Delivery Method Room Air Blood Pressure 152/102 mm Hg Blood Pressure Source Automatic Cuff Height (Feet) 5 feet Height (Inches) 11.00 inches Weight (Kilograms) 75.700 kg Body Mass Index (BMI) 23.3 Results Test Source Date Result Interp. Ref. Range Comments Anion Gap March 15, 2014 12:25pm 8 MEQ/L N 5-15 BUN/Creatinine Ratio March 15, 2014 12:25pm 19 RATIO N 6-26 Basophils # (Auto) March 15, 2014 12:25pm 0.1 T/MM3 N 0-0.2 COMMENT PRE-OP WILL CALL Basophils (%) (Auto) March 15, 2014 12:25pm 0.8 % N 0-2 COMMENT PRE- OP WILL CALL Blood Urea Nitrogen March 15, 2014 12:25pm 19.0 MG/DL N 9-20 Calcium Level March 15, 2014 12:25pm 9.4 MG/DL N 8.4-10.2 Calculated Osmolality March 15, 2014 12:25pm 271 MOSM/KG N 261-280 Carbon Dioxide Level March 15, 2014 12:25pm 29 MEQ/L N 22-30 Chemistry Specimen Hemolysis March 15, 2014 12:25pm 22 N 0-25 --- 03/15/14 1445 ---HEMOLYSIS previously reported as: 17 --- 03/15/14 1516 --- HEMOLYSIS previously reported as: 18 --- 03/15/14 1445 --- HEMOLYSIS previously reported as: 17 0-25: No Hemolysis. 26-70: Slight Hemolysis - can falsely elevate K and Urine Protein. 71-285: Moderate Hemolysis - can falsely elevate K, Troponin I, CA 19-9, PTH, CSF GLucose, and Urine Protein, and can falsely decrease Phenytoin. 286-999: Gross Hemolysis - can falsely elevate K, Troponin I, CA 19-9, PTH, CSF Glucose, and Urine Protine, and can falsely decrease Phenytoin. Recommend specimen recollection. Chloride Level March 15, 2014 12:25pm 103 MEQ/L N 98-107 Creatine Kinase MB March 15, 2014 12:25pm 2.0 NG/ML N 0-3.4 COMMENT already have blood Creatinine March 15, 2014 12:25pm 1.0 MG/DL N 0.8-1.5 Eosinophils # (Auto) March 15, 2014 12:25pm 0.1 T/MM3 N 0-0.5 COMMENT PRE-OP WILL CALL Eosinophils (%) (Auto) March 15, 2014 12:25pm 1.2 % N 0-4 COMMENT PRE-OP WILL CALL Glomerular Filtration Rate Calc March 15, 2014 12:25pm 71 - Glucose Level March 15, 2014 12:25pm 101 MG/DL N 75-110 Hematocrit March 15, 2014 12:25pm 43.8 % N 41-53 COMMENT PRE-OP WILL CALL Hemoglobin March 15, 2014 12:25pm 15.3 GM/DL N 13.5-17.5 COMMENT PRE -OP WILL CALL Icterus Index March 15, 2014 12:25pm < 2 0-7 Immature Granulocyte # (Auto) March 15, 2014 12:25pm 0.02 T/MM3 N 0.00-0.03 COMMENT PRE-OP WILL CALL Immature Granulocyte % (Auto) March 15, 2014 12:25pm 0.3 % N 0.0-0.5 COMMENT PRE-OP WILL CALL Lymphocytes # (Auto) March 15, 2014 12:25pm 1.4 T/MM3 N 1-4.8 COMMENT PRE-OP WILL CALL Lymphocytes (%) (Auto) March 15, 2014 12:25pm 21.3 % L 23-45 COMMENT PRE-OP WILL CALL Magnesium Level March 15, 2014 12:25pm 2.3 MG/DL N 1.6-2.3 COMMENT already have blood Mean Corpuscular Hemoglobin March 15, 2014 12:25pm 33.5 UUG N 26-34 COMMENT PRE-OP WILL CALL Mean Corpuscular Hemoglobin Concent March 15, 2014 12:25pm 34.9 GM/DL N 31-37 COMMENT PRE-OP WILL CALL Mean Corpuscular Volume March 15, 2014 12:25pm 95.8 UM3 N 80-100 COMMENT PRE-OP WILL CALL Mean Platelet Volume March 15, 2014 12:25pm 11.6 UM3 N 9.4-12.4 COMMENT PRE-OP WILL CALL Monocytes # (Auto) March 15, 2014 12:25pm 0.4 T/MM3 N 0-0.8 COMMENT PRE-OP WILL CALL Monocytes (%) (Auto) March 15, 2014 12:25pm 6.4 % N 0-9.0 COMMENT PRE-OP WILL CALL Neutrophils # (Auto) March 15, 2014 12:25pm 4.6 T/MM3 N 1.8-7.7 COMMENT PRE-OP WILL CALL Neutrophils (%) (Auto) March 15, 2014 12:25pm 70.0 % H 33-66 COMMENT PRE-OP WILL CALL Platelet Count March 15, 2014 12:25pm 106 T/MM3 L 130-400 COMMENT PRE-OP WILL CALL Potassium Level March 15, 2014 12:25pm 4.3 MEQ/L N 3.6-5 RDW Standard Deviation March 15, 2014 12:25pm 42.1 FL N 36.9-50.2 COMMENT PRE-OP WILL CALL Red Blood Count March 15, 2014 12:25pm 4.57 M/MM3 N 4.50-5.90 COMMENT PRE-OP WILL CALL Sodium Level March 15, 2014 12:25pm 140 MEQ/L N 134-144 Thyroid Stimulating Hormone (TSH) March 15, 2014 12:25pm 1.82 MIU/L N 0.47-4.68 COMMENT already have blood Total Creatine Kinase March 15, 2014 12:25pm 60 U/L N 55-170 COMMENT already have blood Troponin I March 15, 2014 12:25pm < 0.012 ng/ml 0-0.12 COMMENT already have blood Turbidity March 15, 2014 12:25pm < 20 0-20 White Blood Count March 15, 2014 12:25pm 6.6 T/MM3 N 4.5-11.0 COMMENT PRE-OP WILL CALL Name: REMBERTO MCMANUS Unit #: [id number] : 1930 Sex: M Loc / Svc: SRG DOS: 03/15/14 Signed Report #: [id number] DIAGNOSTIC IMAGING REPORT TYPE OF EXAM: CHEST, PA & LATERAL Dictated By: FABIAN BOATENG MD INDICATION: ITS.REASON: irregular heart rhythm COMPARISON: none. CHEST, PA LATERAL: Tortuous thoracic aorta. Normal heart size. No evidence of lung infiltrate or CHF. There are monitoring leads. IMPRESSION: Normal for age. . Procedures Procedure Status Date Provider(s) Inguinal hernia repair completed 03/15/14 AZRA GOODE MD
--- OUTSIDE RECORDS SUMMARY | 2016-07-28 07:18 | XMS REPORT | Continuity of Care Document ---
Author Author [facility] Organization [facility] Address Unknown Phone Unavailable Support Name Relationship Address Phone DARION SULLIVAN MD Caregiver [facility] [address] [place] [address] ADRIENNE SALAZAR [address] [place] [address] TASHA LOERA DO Caregiver [facility] [address] [place] [address] [address] [place] [address] DRAGAN MCMANUS Next Of Kin [address] [place] [address] Insurance Providers Payer Name Policy Number Subscriber Name Relationship Medicare [id number] Remberto Mcmanus 16 Self [facility] [id number] Remberto Mcmanus 16 Self Advance Directives Directive [...] D3 2 Each PO DAILY 06/05/13 Active [place]-3 Fatty Acids/Fish Oil 2 Each PO TWICE [...] Keep scheduled appointments as directed or call [phone] to schedule an appointment in the next month. Condition at time of discharge: Fair Patient Instructions: Monitor your weight daily. If you gain 3 pounds in 3 days or 5 pounds in one week, call our office for further instructions. Call if you are experiencing chest pain or increased shortness of breath. Restrict your sodium to 2 g daily. Restrict your fluids to 2 L daily. Have a lab performed on March 18 as ordered. Order is provided. Take all medications as instructed. If you have any questions regarding your medications, please contact our office at [phone]. Condition at time of discharge: Fair Plan [...] F (96.8 - 99.1) Temperature (Calculated Celsius) 36.34286 degrees C (36.0 - 37.3) Temperature Source [...] 21, 2014 4:46am 27 MEQ/L N 22-30 Chloride Level March 21, 2014 4:46am 102 [...] WILL CALL WHEN PT ARRIVES Glucose Level March 21, 2014 4:46am 86 [...] COMMENT already have blood White Blood Count March 20, 2014 8:43am 6.7 T/MM3 N 4.5-11.0 COMMENT NURSE WILL CALL WHEN PATIENT ARRIVES Chemistry Specimen Hemolysis March 21, 2014 4:46am [...] falsely decrease Phenytoin. Recommend specimen recollection. Turbidity March 21, 2014 4:46am < 20 0-20 Glomerular Filtration Rate Calc March 21, 2014 4:46am 64 - Immature Granulocyte # (Auto) March 20, 2014 8:43am 0.00 T/MM3 N 0.00 -0.03 COMMENT NURSE WILL CALL WHEN PATIENT ARRIVES Immature Granulocyte % (Auto) March 20, 2014 8:43am 0.0 % N 0.0-0.5 COMMENT NURSE WILL CALL WHEN PATIENT ARRIVES Icterus Index March 21, 2014 4:46am < 2 0-7 Name: REMBERTO MCMANUS Unit #: [id number] : 1930 Sex: M Loc / Svc: SRG DOS: 03/15/14 Signed Report #: [id number] DIAGNOSTIC IMAGING REPORT TYPE OF EXAM: CHEST, [...] AZRA GOODE MD Encounters Encounter Location Date/Time Discharged Inpatient [facility] 03/20/14 8:03am Registered Clinic [facility] 03/15/14 11:26am Recent Diagnosis Atrial fibrillation
[2016-07-28] MEDS ORDERED: CEFAZOLIN 1 GRAM INJECTION IV ONE (08:00)
--- NOTE | 2016-07-28 08:13 | ANESPREOP ---
Anesthesia Record Date and Time DATE: 07/28/16 TIME: 08:12 Proposed Surgical Procedure SKIN CANCER REMOVED NPO since: 1899 Allergies: Coded Allergies: No Known Allergies (Unverified , 07/28/16) Ht/Wt/BMI Height: 5 ' 11.00 " Weight: 83.500 kg BMI: 25.7 kg/m2 Vital Signs Date Time Temp Pulse Resp B/P Pulse Ox O2 Delivery O2 Flow Rate FiO2 07/28/16 07:27 98.2 61 16 145/70 97 Room Air Medications Inpatient Medications Current Medications Medications (Trade) Dose Ordered Sig/Bety Start Time Stop Time Status Last Admin Dose Admin Lactated Ringer's (Lactated Ringers) 1,000 ml @ 50 mls/hr Q20H 07/28/16 07:00 Midazolam HCl (Versed) 0.5-3 MG IV PUSH EVERY... Q10MIN PRN 07/28/16 07:00 Fentanyl (Fentanyl) 25-50 MCG IV PUSH PRN NOT... PRN PRN 07/28/16 07:00 Amiodarone HCl (Amiodarone HCl) 200 Mg Tablet, 200 MG PO DAILY, (Reported) Last Taken: on 07/28/16 0645 Amlodipine Besylate (Amlodipine Besylate) 5 Mg Tablet, 5 MG PO HS, (Reported) Last Taken: on 07/27/161929 Apixaban (Eliquis) 5 Mg Tablet, 5 MG PO BID, ( Reported) Last Taken: on 07/23/16 Calcium Citrate/Vitamin D3 (Citracal + D Cap[place]) 1 Each Tablet, 1 TAB PO DAILY, (Reported) Last Taken: on 07/27/16899 Cholecalciferol (Vitamin D3) 1,000 Unit Tablet , 2 TAB PO DAILY, (Reported) Last Taken: on 07/27/16899 Cyanocobalamin (Vitamin B-12) (Vitamin B12) Unknown Strength Tablet, 1 TAB PO DAILY, (Reported) Last Taken: on 07/27/16 09 Magnesium Oxide (Magnesium Oxide) Unknown Strength Tablet, 400-800 MG PO HS, (Reported) Last Taken: on 07/26/161929 Olmesartan Medoxomil (Benicar) 20 Mg Tablet, 20 MG PO DAILY, (Reported) Last Taken: on 07/27/16 09 [place]-3 Fatty Acids/Fish Oil ([place] 3 Fish Oil Softgel) 1 Each Capsule., 1 TAB PO BID, (Reported) Last Taken: on 07/11/16 Currently on Beta Peggy: No Medical/Surgical History Anesthesia PMH: Reports: *Hypertension, Cancer (SKIN EAR LOBE,SCALP), Cardiac Arrythmia (Hx of Flutter, ATRIAL FIBRILLATION) Smoking Status: Former smoker (quit 30 years ago) # of Packs per Day: 1.5 # of Years: 20 Use Chewing Tobacco?: No Second Hand Exposure: No Substance Use Type: does not use Alcohol Intake: none Last Drink: hours (ago) Past Surgical History Orthopedic Surgeries: No Abdominal Surgeries: Yes - R HERNIA REPAIR Genitourinary Surgeries: No Cardiac Surgeries: Yes - HEART CATH Endocrine Surgeries: No Reproductive Surgeries: Yes - VASECTOMY Neurological Surgeries: No Ear Surgeries: No Nose Surgeries: Yes - SINUS Throat Surgeries: Yes - TONSILLECTOMY Other Surgeries: Yes - SKIN CA REMOVAL,COLONOSCOPY Anesthesia Adverse Reactions: FOUND none Family Hx of Anesthesia Advers: none Hx of Motion Sickness: No Pertinent Findings EKG Rhythm: Sinus Rhythm Physical Exam Respiratory: Bilat breath sounds equal, Lungs clear Cardiovascular: FOUND Regular rate, rhythm Airway Assessment Mallampati Score: II TMD: 3 Fingerbreadths Neck Extension: Fair Overall Assessment: May Be Diff Intubation ASA: 3 Plan Anesthesia Plan: TIVA, LMA, GETA, MAC Discussion Discussed risks/options/alternatives of anesthesia and questions answered. Patient consents. Nursing pain assessment noted. Present: Family Member Attestation Statement Prior to the delivery of any anesthetic medication, I examined the patient, developed the plan, obtained the patient's consent and discussed the risk and benefits of the procedure with the patient/guardian. NARESH DELAROSA CRNA Jul 28, 2016 08:13
[2016-07-28] MEDS ORDERED: MIDAZOLAM 2mg/2ml INJECTION ONE (09:29)
--- NOTE | 2016-07-28 09:57 | PDPROCED ---
Procedure Note Date 07/28/16 Procedure Name Excision of BCC left frontal scalp with frozen section guidance of margins and complex closure: Lesion size 1.3 cm, excision 2.3 cm, final defect 3.0cm Procedure Detail Preop dx: BCC left frontal scalp Postop dx: Same Anesthesia: MAC EBL: Less than 15 ml Case: Clean Complications: None ISSAC GUTIÉRREZ MD Jul 28, 2016 09:57
[2016-07-28] MEDS ORDERED: CEPH-583 PO (10:07)
[2016-07-28] MEDS ORDERED: ACET1TAB12 PO (10:07)
--- NOTE | 2016-07-28 10:14 | NUR ---
MOHS PROCEDURE IN PREOP 0815 ANESTHESIA INTERVIEWED PATIENT 0838 PATHOLOGIST CONFIRMED IN HOSPITAL 0840 DR GUTIÉRREZ IN PATIENT ROOM 0842 VERSED 2MG AND FENTANYL 25MCG GIVEN PER IV SLOW PUSH PER VO DR GUTIÉRREZ BY KAYLYN OLIVEROS RN 0843 TIME OUT PERFORMED BY KAYLYN OLIVEROS RN 0843 DR GUTIÉRREZ PREPPED PATIENT SCALP AND FACE WITH 3% CHLOROXYLENOL 0844 BOVIE IN ROOM SET AT 20 COAG, [address] GUTIÉRREZ INJECTED 3ML LIDOCAINE 1% WITH EPI 1:100,[address] GUTIÉRREZ 0852 EXCISION REMOVED: 1013, [id number] #1 FROZEN SECTION BCC LT FRONTAL SCALP NEEDLE AT 12:00 ANTERIOR MEASUREMENTS: LESION SIZE 1.3CM, EXCISION SIZE 2.3CM, FINAL SIZE 3.0CM 0854 SPECIMEN SENT TO LAB FOR PATHOLOGY [address] GUTIÉRREZ WITH CLEAR MARGINS, PATIENT CLEARED FOR OR CLOSURE Radha BENJAMIN RN
[2016-07-28] MEDS ORDERED: ONDANSETRON 4mg/2ml INJECTION IV PRN (10:15)
[2016-07-28] MEDS ORDERED: HYDROCODONE/APAP 5 mg/325 mg TABLET PO PRN (10:15)
--- NOTE | 2016-07-28 10:28 | ANESPO ---
Post-Op Note Date 07/28/16 Time: 10:25 Status Pt Participated in Evaluation: Pt participated in person Vital Signs Date Time Temp Pulse Resp B/P Pulse Ox O2 Delivery O2 Flow Rate FiO2 07/28/16 10:15 59 15 119/60 94 Room Air 07/28/16 10:00 97.3 07/28/16 09:20 1.00 Respiratory Function: Airway patent, Regular respirations Cardiovascular Function: Regular pulse Mental Status: Alert/oriented Pain Level Intensity: 0 Hydration: Taking po fluids Complications during Recovery None apparent Follow-Up Instructions Instructions Per Surgeon NARESH DELAROSA CRNA Jul 28, 2016 10:28
--- NOTE | 2016-07-28 13:46 | OPNOTEF ---
DATE OF OPERATION 07/28/2016 PREOPERATIVE DIAGNOSIS Basal cell carcinoma of left frontal scalp. POSTOPERATIVE DIAGNOSIS Basal cell carcinoma of left frontal scalp. OPERATION Excision of basal cell carcinoma of left frontal scalp with frozen section guidance of margins and complex closure. Lesion size was 1.3 cm. Excision size was 2.3 cm. Final defect was 3.0 cm. SURGEON Trinidad Coleman M.D. ANESTHESIA MAC INDICATIONS The patient is an 86-year-old man who presented with the complaint of a lesion of his left frontal scalp, biopsy of which revealed a basal cell carcinoma. Initially he presented with his daughter, Lina. The lesion had been present for several years and now was forming a scab. He denied any bleeding. The scab did slough off occasionally. The patient has a history of skin cancer of his left ear but wasn't sure of the type. On exam, he had a 1.3 cm erythematous and healing biopsy site. In detailed discussion with the patient preoperatively, the risks, benefits and alternatives of excision of the lesion with frozen section guidance of the margins were reviewed including, but not limited to, bleeding, infection, poor or keloid scarring, residual and/or recurrent disease, possible partial or complete loss of the flap or graft. The patient understood and wished to proceed. DESCRIPTION OF PROCEDURE The patient was marked preoperatively and then after suitable IV sedation, the scalp and face were prepped and draped in the usual sterile manner. The involved area was then infiltrated with 1% lidocaine with epinephrine. After a wait for hemostasis, the lesion was excised and handed off as a specimen with the 12 o'clock anterior margin. Subsequent pathologic evaluation revealed clear margins. The patient was then brought to the operating room and again prepped and draped in the usual sterile manner. After suitable IV sedation, the area was again infiltrated with 1% lidocaine with epinephrine. It was then widely undermined and dog ears were removed. It was then closed in one layer using interrupted 3-0 nylon. Benzoin and Steri-Strips were applied, as well as a dry sterile dressing and Mefix tape. Of note, hemostasis throughout was obtained using the electrocautery. The patient was then brought to the recovery room in stable condition. Estimated blood loss was less than 15 mL. The case was clean. Specimens: Basal cell carcinoma of left frontal scalp. Medical clearance was obtained from Dr. Newell and Dr. Casiano. [facility]
== END 2016-07-28 10:35 | disposition home or self-care (01) ==
LOC: NSC 07:14
PROVIDERS: ATTEND Surgery Plastic and Reconstructive Surgery
DX: C44.41 Basal cell carcinoma of skin of scalp and neck (principal)
CPT/HCPCS: 11623; 13121; 88305; 88331; 88332; J0690; J2250; J3010

== ENCOUNTER → 2016-09-21 | Outpatient (CLI) | payer MEDICARE ==
[~2016-09-21] MED LIST changes: +ACET1TAB12 PO; +CEPH-583 PO; -FENTANYL 100mcg/2ml INJECTION IV PRN; -LIDOCAINE 1% (10mg/ml) 2ml SDV INJ ONE; -LIDOCAINE 1%/EPI 1:100,000 20ml MDV ONE; -LR 1,000 ML IV SCH; -MIDAZOLAM 5mg/5ml INJECTION IV PRN
--- NOTE | 2016-09-21 13:12 | DI ---
Indication: ITS.REASON: M54.5 LOW BACK PAIN; W19.XXXA Unspecified fall, initial encounter PROCEDURE: PELVIS 1-2 VIEW DEDICATED PELV: Encounter: Initial Comparison: None Findings: There is no acute fracture, dislocation or malalignment identified. Mild osteoarthritis in both hips with joint space narrowing. Prominent osseous excrescence at the right femoral head neck junction. Arterial vascular calcifications. Impression: No acute osseous abnormality. .
--- NOTE | 2016-09-21 13:14 | DI ---
Indication: ITS.REASON: M54.5 LOW BACK PAIN; W19.XXXA Unspecified fall, initial encounter PROCEDURE: LUMBAR SPINE COMP W/O BEND: Encounter: Initial Comparison: MRI lumbar spine dated June 21, 2006 Findings: Alignment of the lumbar spine is within normal limits. There is new mild wedge compression deformity of the L1 vertebra. There is also mild wedge compression deformity of the T10 vertebra. There is approximately 25% height loss at T10 and 15-20% height loss at L1. The remaining lumbar vertebral body heights are maintained. Mild disk space narrowing at L3-L4. Bony demineralization. Arterial vascular calcifications. Oblique views show no discrete pars defects. Impression: Interval development of compression fractures of T10 and L1, possibly acute. MRI or nuclear medicine bone scan could be performed to help determine the acuity of these fractures. .
== END ==
LOC: IMA 11:50
PROVIDERS: ATTEND Internal Medicine
DX: S22.070A Wedge compression fracture of T9-T10 vertebra, initial encounter for closed fracture (principal); S32.010A Wedge compression fracture of first lumbar vertebra, initial encounter for closed fracture; M54.5 Low back pain; W19.XXXA Unspecified fall, initial encounter; Y93.9 Activity, unspecified; Y92.019 Unspecified place in single-family (private) house as the place of occurrence of the external cause; Y99.8 Other external cause status

== ENCOUNTER 2017-04-27 17:52 | Inpatient (IN) ==
--- NOTE | 2017-04-27 19:01 | Emergency Department Report ---
Lower Extremity Injury HPI - General Chief Complaint: Extremity Injury, Lower Stated Complaint: fall Time Seen by Provider: 04/27/17 18:00 Source: patient, EMS, RN notes reviewed, old records reviewed Mode of arrival: EMS Limitations: no limitations - History of Present Illness HPI Narrative: 86yo man presented to the ER by EMS for evaluation after a fall. Pt kicked at a gift bag in his office earlier today; he fell down in the attempt. Pt abraded his right ear on his desk and has right hip pain. Pain is improved/gone with lying still; significant increases with any movement or attempts to bear weight. Has some slight external rotation of the hip on initial exam. MD complaint: hip injury Onset (ago): minute(s) Type of Injury: blunt Place: home Severity: severe Severity scale (1-10): 8 Relieving factors: immobilization Exacerbating factors: weight bearing, movement, palpation Context: fall Associated symptoms: unable to bear weight Other symptoms: none Treatments prior to arrival: cold therapy - Related Data Home Medications Medication Instructions Recorded Confirmed Cholecalciferol [Vit. D-3] 1,000 unit PO BID #0 03/20/14 04/27/17 Apixaban [Eliquis] 5 mg PO BID #0 12/25/15 04/27/17 Amiodarone [Pacerone] 200 mg PO DAILY 04/27/17 04/27/17 Amlodipine [Norvasc] 2.5 mg PO HS 04/27/17 04/27/17 Cyanocobalamin (Vitamin B-12) 1,000 mcg PO DAILY 04/27/17 04/27/17 [Vitamin B-12] Olmesartan Medoxomil [Olmesartan 20 mg PO DAILY 04/27/17 04/27/17 Medoxomil] [place]-3/Dha/Epa/Fish Oil [Fish Oil 1,000 mg PO BID 04/27/17 04/27/17 1,000 mg Softgel] Allergies Allergy/AdvReac Type Severity Reaction Status Date / Time No Known Allergies Allergy Verified 04/27/17 18:52 Review of Systems All systems: reviewed and negative except as stated Musculoskeletal: Reports: as per HPI, arthralgia. Denies: back pain, joint swelling, myalgia Integumentary: Reports: as per HPI, other (abrasion) PFSH Patient Stated Medical History Cardiac Arrhythmia Yes Hx Benign Prostatic Yes Hyperplasia Clotting Problems Yes: pt unsure, is on anticoagulant Medical History Updates: A-fib. HTN. HL - Social History Smoking status: Former smoker Physical Exam - Limitations Limitations: no limitations - General General appearance: alert, in no apparent distress - Normal Exams: Head:: Normocephalic without trauma Eyes:: Pupils are PERRLA w/ EOMI, No scleral icterus, irritation, or foreign bodies noted ENMT:: No facial trauma, nasal exudates, pharyngeal erythema, or exudates are noted Neck:: Full range of motion, without adenopathy Chest/Respirations:: Clear all gonzalez, with good airflow, and symmetry bilaterally Cardiovascular:: Regular rate and rhythm, without murmur or gallop, Pulses 2+ all extremities, capillary refill, <2 seconds all extremities Lymphatic:: No lymphadenopathy Musculoskeletal:: No tenderness, or deformity noted, good range of motion Integumentary:: No rashes, hives, or bruising noted Neurological:: Patient is alert, and oriented, cranial nerves, motor/sensory/ cerebellar, exams w/o gross deficits Psychiatric:: Patient exhibits, appropriate attention - Expanded Lower Extremity Exam right Hip/Pelvis exam: Present: normal inspection, tenderness, deformity, crepitus, external rotation. Absent: full ROM, swelling, abrasion, laceration, ecchymosis , dislocation, erythema, internal rotation, shortening Course - Consultations Consultation #1: Ortho: Will accept pt for surgical repair. Requests admission to hospitalist. Time: 18:58 Consultation #2: Joshua Telemed: Dr. Murillo accepts pt for admission. Requests f/u on [facility]. Time: 19:19 Vital Signs Temperature 97.7 F 04/27/17 17:54 Pulse Rate 69 04/27/17 17:54 Respiratory Rate 16 04/27/17 17:54 Blood Pressure 216/101 H 04/27/17 17:54 Pulse Oximetry 94 04/27/17 17:54 Temperature 97.7 F 04/27/17 17:54 Pulse Rate 69 04/27/17 17:54 Respiratory Rate 16 04/27/17 17:54 Blood Pressure 216/101 H 04/27/17 17:54 Pulse Oximetry 94 04/27/17 17:54 Extremity Injury, Lower - Differential Diagnosis Likely: fracture of femur, fracture of hip - Medical Records Attestation: I reviewed the patient's medical records. - Lab Data Attestation: I reviewed the patient's lab results. Result diagrams: 04/27/17 18:06 04/27/17 18:06 Lab Results 04/27/17 04/27/17 Range/Units 18:06 18:06 WBC 7.8 (4.5-11.0) T/MM3 RBC 4.64 (4.50-5.90) M/MM3 Hgb 15.1 (13.5-17.5) GM/DL Hct 44.1 (41-53) % MCV 95.0 (80-100) UM3 MCH 32.5 (26-34) UUG MCHC 34.2 (31-37) GM/DL RDW Std Deviation 44.0 (36.9-50.2) FL Plt Count 126 L (130-400) T/MM3 MPV 11.0 (9.4-12.4) UM3 Immature Gran % (Auto) 0.1 (0.0-0.5) % Neut % (Auto) 67.0 H (33-66) % Lymph % (Auto) 23.6 (23-45) % [place] % (Auto) 6.9 (0-9.0) % Eos % (Auto) 1.9 (0-4) % Baso % (Auto) 0.5 (0-2) % Neut # (Auto) 5.2 (1.8-7.7) T/MM3 Lymph # (Auto) 1.8 (1-4.8) T/MM3 [place] # (Auto) 0.5 (0-0.8) T/MM3 Eos # (Auto) 0.2 (0-0.5) T/MM3 Baso # (Auto) 0.0 (0-0.2) T/MM3 Abs Immat Gran (auto) 0.01 (0.00-0.03) T/MM3 Turbidity < 20 (0-20) Sodium 138 (134-144) MEQ/L Potassium 4.6 (3.6-5) MEQ/L Chloride 101 (98-107) MEQ/L Carbon Dioxide 25 (22-30) MEQ/L Anion Gap 12 (5-15) MEQ/L BUN 20.0 (9-20) MG/DL Creatinine 1.0 (0.8-1.5) MG/DL GFR Calculation 71 BUN/Creatinine Ratio 20 (6-26) RATIO Glucose 92 (75-110) MG/DL Calculated Osmolality 269 (261-280) MOSM/KG Calcium 9.5 (8.4-10.2) MG/DL Icterus Index < 2 (0-7) Creatine Kinase 61 (55-170) U/L Specimen Hemolysis 23 (0-25) - Radiology Data Attestation: I reviewed the patient's radiology results. Rt Hip and pelvis: Irregularity along right femoral neck. Unclear whether this is artifact, old fx, or new fx. Will send for CT for better visualization. CT right Hip: FINDINGS: Bones/joints: There is a subcapital right hip fracture with some impaction at the fracture site posterior displacement of the femoral head and anterior angulation at the fracture site. No other fractures are identified. No dislocation. Soft tissues: Unremarkable. Vasculature: Vascular calcification noted. IMPRESSION: Subcapital right hip fracture. CXR: Poor insp effort. Stable chest; no acute CT pathology. Disposition Clinical Impression: Subcapital fracture of femur Qualifiers: Encounter type: initial encounter Fracture type: closed Laterality: right Qualified Code(s): S72.011A - Unspecified intracapsular fracture of right femur , initial encounter for closed fracture Disposition: To [facility] Print Language: Spanish Condition: Improved Prescriptions: No Action Amiodarone [Pacerone] 200 mg PO DAILY Amlodipine [Norvasc] 2.5 mg PO HS [place]-3/Dha/Epa/Fish Oil [Fish Oil 1,000 mg Softgel] 1,000 mg PO BID Olmesartan Medoxomil [Olmesartan Medoxomil] 20 mg PO DAILY Cholecalciferol [Vit. D-3] 1,000 unit PO BID #0 Apixaban [Eliquis] 5 mg PO BID #0 Cyanocobalamin (Vitamin B-12) [Vitamin B-12] 1,000 mcg PO DAILY Referrals: Denton Newell DO [Family Provider] - Time of Disposition: 19:30 - Seen By: physician
[2017-04-27] MEDS ORDERED: MORPHINE SULFATE 2mg INJECTION IVP ONE (19:02)
[2017-04-27] MEDS ORDERED: ONDANSETRON 4 MG/2 ML INJECTION IVP ONE (19:02)
[2017-04-27 20:17] VITALS: BMI 24.9
[2017-04-27] MEDS ORDERED: ONDANSETRON 4 MG/2 ML INJECTION IVP PRN (20:24)
[2017-04-27] MEDS ORDERED: DOCUSATE SODIUM 100 MG CAPSULE PO PRN (20:24)
[2017-04-27] MEDS ORDERED: BISACODYL 10 MG SUPPOSITORY RECTALLY PRN (20:24)
[2017-04-27] MEDS ORDERED: MORPHINE SULFATE 4mg INJECTION IVP PRN (20:24)
[2017-04-27] MEDS ORDERED: AMLODIPINE 5 MG TABLET PO ONE (20:45)
[2017-04-27] MEDS: NS 1,000 ML IV SCH (20:53)
--- NOTE | 2017-04-27 20:57 | History & Physical Report ---
History of Present Illness Date: 04/28/17 Chief complaint: fall, right hip pain HPI: This is an 86 y/o w/ AFib on Eliquis, HTN, HLD who presents to ED s/p fall tonight and c/o right hip pain w/ movement. Patient states he was moving a bag w/ his foot and lost his balance and fell onto his right hip. He denies LOC, denies syncope, and did not feel lightheaded or dizzy prior to the fall. Patient denies cp, soa, dyspnea, [place], n/v/d and change in bladder issues. Has had 3 falls over the past year, feels he is slowly getting weaker and occasionally uses a cane for ambulation. In ED, CT showed right hip fx, and ED d/w Dr. Leggett who will see the patient in consult and recommended we stop the patient's Eliquis. Patient given Morphine IV 2mg x one for pain and Zofran 4mg IV x one for nausea. CXR showed no acute process. Patient at this time states he only has pain when he tries to move his right leg. Patient to be admitted to the Hospitalist service and Ortho consulted. Review of Systems All systems PM: 10-point ROS was reviewed, no additional remarkable complaints except Past Medical History Patient Stated Medical History Cardiac Arrhythmia Yes: Afib Hypertension Yes Hx Benign Prostatic Yes Hyperplasia Clotting Problems Yes: pt unsure, is on anticoagulant Medical History Updates: A-fib. HTN. HLD Family History Updates: Patient reports no significant family history - Social History Smoking status: Former smoker Substance use type: does not use Housing: house Household members: spouse Medications Home Medications Medication Instructions Recorded Confirmed Type Cholecalciferol [Vit. D-3] 1,000 unit PO BID #0 03/20/14 04/27/17 History Apixaban [Eliquis] 5 mg PO BID #0 12/25/15 04/27/17 History Amiodarone [Pacerone] 200 mg PO DAILY 04/27/17 04/27/17 History Amlodipine [Norvasc] 2.5 mg PO HS 04/27/17 04/27/17 History Cyanocobalamin (Vitamin B-12) 1,000 mcg PO DAILY 04/27/17 04/27/17 History [Vitamin B-12] Olmesartan Medoxomil [Olmesartan 20 mg PO DAILY 04/27/17 04/27/17 History Medoxomil] [place]-3/Dha/Epa/Fish Oil [Fish Oil 1,000 mg PO BID 04/27/17 04/27/17 History 1,000 mg Softgel] Allergies Allergy/AdvReac Type Severity Reaction Status Date / Time No Known Allergies Allergy Verified 04/27/17 18:52 Exam Vital Signs: Temperature 97.2 F 04/27/17 19:58 Pulse Rate 67 04/27/17 20:00 Respiratory Rate 16 04/27/17 20:00 Blood Pressure 179/84 H 04/27/17 20:00 Pulse Oximetry 94 04/27/17 20:00 Telemetry Rhythm: A-fib Height/Weight/BMI: Height 1.83 m Weight 83.4 kg Body Mass Index 24.9 - Constitutional Present: no acute distress, well nourished, well developed - Routine HEENT Exam Head: Present: normocephalic Eye: Present: EOMI, PERRL. Absent: scleral injection ENT: Present: mucous membranes dry, nares patent - Routine Neck Exam Present: supple, full ROM. Absent: JVD - Routine Respiratory Exam Present: CTA bilaterally. Absent: accessory muscle use, dyspnea, respiratory distress - Routine Cardiovascular Exam Present: irregular rhythm - Routine Abdominal Exam Present: soft, normoactive bowel sounds, non distended, non tender - Routine Extremities Exam Absent: cyanosis, clubbing, edema - Routine Psychiatric Exam Present: normal affect, normal thought process Results - Labs CBC & Chem 7: 04/28/17 04:01 04/28/17 04:01 Assessment and Plan Assessment and Plan: Assessment 1) Right hip fx s/p mechanical fall 2) Afy ib on Eliquis 3) HTN 4) HLD 5) S/p falls x 3 in past 1 year - uses cane occasionally to ambulate but not within home Plan: Admit to Hospitalist service Consult Orthopedics - Dr. Leggett IVFs at 75 cc /hour Regular diet for now - will need to be NPO after midnight tomorrow night Home meds as indicated Hold Eliquis per Ortho's recommendation SCDs UA pending - Mccray placed in ER Telemetry Increase Amlodipine to 5mg po x one tonight, then resume usual home dose Continuous pulse oximetry Supportive care - prn Morphine prn pain, prn Zofran as directed DVT Prophylaxis: SCD's Resuscitation Status: Full Code - Physician Narrative Physician: Austin Mota MD Narrative: Date: 04/28/17 Time: 1419 Svetlana I have independently interviewed and examined pt. Chart reviewed. Reviewed above not and concur. CC: Fall with right hip pain. HPI: 86 y/o male presents to ED secondary to acute hip pain following a fall. Was walking at home and tried to kick some [place] garbage out of the way. Did loose footing and feel to ground. Hit right ear on desk, but did not lose consciousness. Landed hard on his right hip. Had extreme pain with any movements or trying to bear weight. Prior to injury, was in typical state of health. Does note chronic dysequilibrium. Chronic gait instability. Over past several months, notes he has been 'slowing down' - harder to get up out of chair , harder to get around. Breathing stable-not having SOA, cough or congestion. No chest pressure, pain, or palpitations. Bowels slow but stable-last stool day prior to presentation. No urinary problems. In ED found to have acute subcapital right femoral neck fracture. Place in inpatient admission for definitive orthopedic intervention. Anticipate greater than 2 midnight of care needed. PMHx: Afib, HTN, HDL, BPH, SxHx: Sinus Sx in 98, Inguinal hernia repair in 05/16, Tonsillectomy in 43, Removal of BCC from left frontal scalp. ALL: NKDA MED: see mar SHx: . Lives in [facility]. Quit smoking in 2000. Currently without PCP ( perviously had seen Dr Newell). FHx: Father had lung Ca and emphysema, Mother with HF, had dementia. Brother had stroke. ROS: As in HPI. Remainder of 10 point ROS discussed with patient and negative. Exam GEN: WDWNWM awake and alert. HEENT: NC PERRLA EOMI MMM Neck: supple, midline, no tracheal deviation CV: irregularly irregular Lungs: decrease bilaterally. No crackles, wheezes, distress. Breathing comfortably on RA. AB: soft nt/nt +BS EXT: No C/C/E; SCD in place Skin: warm and dry MS: Normal muscle tone and mass of upper and lower ext Neuro: CN II-XII intact. No focal motor deficits Psych: awake alert appropriate. Thoughts linear. Communicates well. Assessment Subcapital right femoral neck fracture Mechanical fall Chronic afib Anticoagulation with Eliquis HTN HDL BPH Chronic constipation Chronic gait instability Plan Admit to Hospitalist service - anticipate greater than 2 midnights of care needed. Consult Orthopedics - Dr. Leggett. IVFs at 75 cc /hour Regular diet for now - will need to be NPO after midnight tomorrow night Home meds as indicated Hold Eliquis per Ortho's recommendation. SCDs for DVT prevention. UA pending - Mccray placed in ER. Telemetry secondary to afib Increase Amlodipine to 5mg po x one tonight, then resume usual home dose. Continuous pulse oximetry. Supportive care - prn Morphine prn pain, prn Zofran as directed. 04/28/17 Surgery planned for tomorrow to allow for Eliquis to leave system - will hold on Lovenox today as Eliquis still with effect. Consult Dr Jeffrey for Metabolic Bone Evaluation. Check Vitamin D level and CMP. Routine Senna Plus to help bowel motivation. PRN Miralax, MOM, and Dulcolax suppositories. IS to help pulmonary toilet. Consult with PT/OT post op. Medically stable for surgery planned for tomorrow. Hospital Course Summary Disclaimer: The visit summary below is not to be considered part of the above Progress Note. Hospital Course: Assessment Subcapital right femoral neck fracture Mechanical fall Chronic afib Anticoagulation with Eliquis HTN HDL BPH Chronic constipation Chronic gait instability 04/27/17 Admit to Hospitalist service - anticipate greater than 2 midnights of care needed. Consult Orthopedics - Dr. Leggett. IVFs at 75 cc /hour Regular diet for now - will need to be NPO after midnight tomorrow night Home meds as indicated Hold Eliquis per Ortho's recommendation. SCDs for DVT prevention. UA pending - Mccray placed in ER. Telemetry secondary to afib Increase Amlodipine to 5mg po x one tonight, then resume usual home dose. Continuous pulse oximetry. Supportive care - prn Morphine prn pain, prn Zofran as directed. 04/28/17 Surgery planned for tomorrow to allow for Eliquis to leave system - will hold on Lovenox today as Eliquis still with effect. Consult Dr Jeffrey for Metabolic Bone Evaluation. Check Vitamin D level and CMP. Routine Senna Plus to help bowel motivation. PRN Miralax, MOM, and Dulcolax suppositories. IS to help pulmonary toilet. Consult with PT/OT post op. Medically stable for surgery planned for tomorrow.
[2017-04-27] MEDS ORDERED: AMLODIPINE 5 MG TABLET PO SCH (21:00)
--- NOTE | 2017-04-28 08:10 | XRay Report ---
Indication: Hip fx PROCEDURE: XR chest 1V: Encounter: Initial Comparison: October 05, 2016 Findings: The lungs are stable in appearance without new focal airspace consolidation. Hypoinflation. Right basilar scarring. There is no pleural effusion or pneumothorax. The heart size, pulmonary vascularity and mediastinal contours are unchanged. IMPRESSION: Stable appearance of the chest without acute cardiopulmonary disease. .
--- NOTE | 2017-04-28 08:18 | CT Scan Report ---
Indication: Fall with right hip pain PROCEDURE: CT hip RT wo con: Encounter: Initial Comparison: None Technique: Axial CT images were performed through the right hip without intravenous contrast. Coronal and sagittal two-dimensional reformats. Automated Exposure Control and Iterative Reconstruction dose reducing techniques were utilized. Findings: Bony demineralization. There is a mildly displaced and angulated fracture of the subcapital right femoral neck with apex anterior angulation. No additional acute fracture or dislocation. Bony demineralization. 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 Soft tissues show no focal hematoma or fluid collection. Impression: Closed posttraumatic right femoral neck fracture. There is a preliminary report by virtual radiologic. .
--- NOTE | 2017-04-28 08:19 | Orthopedic Consult Note ---
Orthopedic Consultation HPI - Consultation Info Consult Date: 04/28/17 Attending Physician: Myesha Stein MD Consult Reason: fracture - History of Present Illness This is an 86 yo male who is the grandfather of Dr Paul Julien. He was brought to [facility] by ambulance after a fall in his home on 04/27/17. He had immediate right hip pain and was unable to ambulate, although was able to get up to a chair prior to EMS arrival. He was moving an empty gift bag with his foot and lost his balance which resulted in his fall. He denies LOC, denies syncope , and did not feel lightheaded or dizzy prior to the fall. He reports several falls over the past year, feels he is slowly getting weaker and occasionally uses a cane for ambulation. Review of Systems - Constitutional Constitutional: Absent: chills, fever(s), headache(s), night sweats, dizziness - EENT Ears, nose, mouth, throat: Present: head injury (Struck his right ear as he fell.) - Cardiovascular Cardiovascular: Absent: chest pain, palpitations, syncope - Respiratory Respiratory: Absent: cough, dyspnea - Gastrointestinal Gastrointestinal: Present: constipation. Absent: abdominal pain, nausea, vomiting - Genitourinary Genitourinary Male: Present: other (Reports trouble emptying his bladder.) - Musculoskeletal Musculoskeletal: Present: as per HPI, other (Denies right hip pain prior to the fall.) - Neurological Neurological: Present: frequent falls (3 in the last year.). Absent: dizziness , paralysis/paresis PFS Patient Stated Medical History Cardiac Arrhythmia Yes: Afib Hypertension Yes Hx Benign Prostatic Yes Hyperplasia Clotting Problems Yes: pt unsure, is on anticoagulant Medical History Updates: A-fib. HTN. HL - Social History Smoking status: Former smoker Medications Home Medications Medication Instructions Recorded Confirmed Type Cholecalciferol [Vit. D-3] 1,000 unit PO BID #0 03/20/14 04/27/17 History Apixaban [Eliquis] 5 mg PO BID #0 12/25/15 04/27/17 History Amiodarone [Pacerone] 200 mg PO DAILY 04/27/17 04/27/17 History Amlodipine [Norvasc] 2.5 mg PO HS 04/27/17 04/27/17 History Cyanocobalamin (Vitamin B-12) 1,000 mcg PO DAILY 04/27/17 04/27/17 History [Vitamin B-12] Olmesartan Medoxomil [Olmesartan 20 mg PO DAILY 04/27/17 04/27/17 History Medoxomil] [place]-3/Dha/Epa/Fish Oil [Fish Oil 1,000 mg PO BID 04/27/17 04/27/17 History 1,000 mg Softgel] Allergies Allergy/AdvReac Type Severity Reaction Status Date / Time No Known Allergies Allergy Verified 04/27/17 18:52 Orthopedic Exam Vital signs: Temperature 99.3 F 04/28/17 07:32 Pulse Rate 63 04/28/17 07:32 Respiratory Rate 18 04/28/17 07:32 Blood Pressure 144/71 H 04/28/17 07:32 Pulse Oximetry 93 04/28/17 07:32 - Constitutional General Appearance: Present: alert, cooperative, no acute distress, well developed, well nourished - Respiratory Exam Present: non-labored - Cardiovascular Exam Present: pedal pulses intact Capillary Refill: < 2-3 Seconds - Abdominal Exam Present: soft. Absent: tenderness - Extremities Exam Present: pulses intact. Absent: cyanosis, clubbing, edema, calf tenderness - Integumentary Exam Present: pink, warm, dry, other (Abrasion to the right ear.) - Neurological Exam Present: intact to light touch, no deficits - Psychiatric Exam Present: alert, normal affect - Labs Result Diagrams: 04/28/17 04:01 04/28/17 04:01 Abnormal lab results 04/27/17 04/28/17 Range/Units 19:46 04:01 RBC 4.11 L (4.50-5.90) M/MM3 Hgb 13.3 L D (13.5-17.5) GM/DL Hct 39.1 L D (41-53) % Plt Count 110 L (130-400) T/MM3 Neut % (Auto) 81.5 H (33-66) % Lymph % (Auto) 10.7 L (23-45) % Ur Specific [place] 1.010 L (1.015-1.025) Urine Occult Blood 1+ A (NEGATIVE) Urine RBC 3-5 H (0-3) /HPF Urine Bacteria Trace H (NEGATIVE) H & H 12/28/17 Range/Units 04:01 Hgb 13.3 L D (13.5-17.5) GM/DL Hct 39.1 L D (41-53) % Impression and Recommendation (1) Subcapital fracture of femur Current visit: Yes Qualifiers: Encounter type: initial encounter Fracture type: closed Laterality: right Qualified Code(s): S72.011A - Unspecified intracapsular fracture of right femur, initial encounter for closed fracture Status: Acute Pt is on Eliquis and will need to wait 48hrs from his last dose before surgery can be done. Tentatively planning on Tuesday for his surgery. I discussed the nature of his injury and planned surgical procedure. Dr Leggett will meet with him this afternoon to discuss risk vs benefits and possible complications. The right hip was marked for surgery. Orders will be placed. SCDs functioning. Medical mgmt per hospitalist. Hospital Course Summary Disclaimer: The visit summary below is not to be considered part of the above Progress Note.
--- NOTE | 2017-04-28 08:20 | XRay Report ---
Indication: fall/pain PROCEDURE: XR pelvis w/ 1 view RT hip: Encounter: Initial Comparison: Pelvis radiographs dated September 21, 2016 Findings: Subcapital fracture of the right femoral neck, better seen on subsequent CT. There is apex anterior angulation seen on the crosstable lateral view. 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 Bony demineralization limiting detection of nondisplaced fractures. Impression: Closed posttraumatic subcapital right femoral neck fracture. .
[2017-04-28] MEDS ORDERED: ENOXAPARIN 120 MG/0.8 ML INJECTION SQ ONE (08:31)
[2017-04-28] MEDS: AMIODARONE 200 MG TABLET PO SCH (09:26)
[2017-04-28] MEDS: CYANOCOBALAMIN (B-12) 500mcg TABLET PO SCH (09:27)
[2017-04-28] MEDS: NS 1,000 ML IV SCH ×2 (09:35→23:16)
[2017-04-28] MEDS ORDERED: NOZIN NASAL SWAB NAS ONE (11:40)
[2017-04-28] MEDS ORDERED: POLYETHYL GLYCOL 3350 17gm PACKET PO PRN (13:39)
[2017-04-28] MEDS ORDERED: ACETAMINOPHEN 325 MG TABLET PO PRN (13:40)
[2017-04-28] MEDS: SENNA + DOCUSATE TABLET PO SCH (20:35)
[2017-04-28] MEDS: AMLODIPINE 2.5 MG TABLET PO SCH (20:35)
[2017-04-28] MEDS ORDERED: FALL RISK - PHARMACY CONSULT XX ONE (21:16)
[2017-04-29] MEDS ORDERED: BUPIVACAINE 0.25% (2.5mg/ml) PF 30ml INJECTION ONE (07:54)
[2017-04-29] MEDS ORDERED: VANCOMYCIN 1,000 MG INJECTION ONE ×2 (07:55→10:21)
[2017-04-29] MEDS ORDERED: NOZIN NASAL SWAB NAS ONE (08:00)
[2017-04-29] MEDS: CYANOCOBALAMIN (B-12) 500mcg TABLET PO SCH (09:12)
[2017-04-29] MEDS: SENNA + DOCUSATE TABLET PO SCH ×2 (09:12→20:10)
[2017-04-29] MEDS: AMIODARONE 200 MG TABLET PO SCH (09:33)
[2017-04-29] MEDS ORDERED: CEFAZOLIN 1 G INJECTION IVP ONE (10:07)
[2017-04-29] MEDS: LR 1,000 ML IV SCH ×2 (10:19→13:09)
[2017-04-29] MEDS ORDERED: PROPOFOL 500 MG/50 ML VIAL ONE (10:57)
--- NOTE | 2017-04-29 10:59 | Anesthesia Preoperative Report ---
Anesthesia Preoperative Record - Date and Time Date: 04/29/17 Preoperative Diagnosis: Right hip fracture Proposed Procedure: Right Hip hemiarthroplasty NPO Since Date: 04/29/17 NPO Since Time: 00:00 Allergies/Adverse Reactions: Allergies Allergy/AdvReac Type Severity Reaction Status Date / Time No Known Allergies Allergy Verified 04/27/17 18:52 - Vital Signs Vital Signs: Temperature 98.4 F 04/29/17 10:05 Pulse Rate 66 04/29/17 10:12 Respiratory Rate 18 04/29/17 10:05 Blood Pressure 151/74 H 04/29/17 10:05 Pulse Oximetry 90 04/29/17 10:05 Height and Weight: Height 6 ft Weight 83.7 kg Body Mass Index 24.9 - Medications Inpatient Medications: Current Medications Acetaminophen (Tylenol) 325 mg PO Q5H PRN PRN Reason: Discomfort Amiodarone HCl (Pacerone) 200 mg PO DAILY [facility] Last Admin: 04/29/17 09:33 Dose: 200 mg Amlodipine Besylate (Norvasc) 2.5 mg PO HS [facility] Last Admin: 04/28/17 20:35 Dose: 2.5 mg Bisacodyl (Dulcolax) 10 mg RECTALLY DAILY PRN PRN Reason: Constipation Cholecalciferol (Vit. D-3) 1,000 unit PO BID [facility] Last Admin: 04/29/17 09:11 Dose: Not Given Cyanocobalamin (Vit. B-12) 1,000 mcg PO DAILY [facility] Last Admin: 04/29/17 09:12 Dose: Not Given Docusate Sodium (Colace) 100 mg PO BID PRN Sodium Chloride (Normal Saline) 1,000 mls @ 75 mls/hr IV .[id number] [facility] Last Infusion: 04/29/17 10:00 Dose: Infused Lactated Ringer's (Lactated Ringers) 1,000 mls @ 50 mls/hr IV .Q20H [facility] Last Admin: 04/29/17 10:19 Dose: 50 mls/hr Morphine Sulfate (Morphine Sulfate Inj) 1 - 2 mg IVP Q3H PRN PRN Reason: Pain Last Admin: 04/28/17 16:00 Dose: 1 mg Olmesartan (Benicar) 20 mg PO DAILY [facility] Last Admin: 04/29/17 09:32 Dose: 20 mg Ondansetron HCl (Zofran) 4 mg IVP Q6H PRN PRN Reason: Nausea &/or vomiting Pneumococcal 7-Valent Conj Vacc (Prevnar 13) 0.5 ml IM .ONCE ONE Stop: 04/30/17 09:01 Polyethylene Glycol (Miralax) 17 gm PO DAILY PRN Senna/Docusate Sodium (Senna Plus Tablet) 1 tab PO BID [facility] Last Admin: 04/29/17 09:12 Dose: Not Given Home Medications: Home Medications Medication Instructions Recorded Confirmed Type Cholecalciferol [Vit. D-3] 1,000 unit PO BID #0 03/20/14 04/27/17 History Apixaban [Eliquis] 5 mg PO BID #0 12/25/15 04/27/17 History Amiodarone [Pacerone] 200 mg PO DAILY 04/27/17 04/27/17 History Amlodipine [Norvasc] 2.5 mg PO HS 04/27/17 04/27/17 History Cyanocobalamin (Vitamin B-12) 1,000 mcg PO DAILY 04/27/17 04/27/17 History [Vitamin B-12] Olmesartan Medoxomil [Olmesartan 20 mg PO DAILY 04/27/17 04/27/17 History Medoxomil] [place]-3/Dha/Epa/Fish Oil [Fish Oil 1,000 mg PO BID 04/27/17 04/27/17 History 1,000 mg Softgel] Is Patient on Beta Peggy?: No - Medical History Respiratory: DENIES: Sleep Apnea Cardiovascular: Reports: Arrhythmia (Afib- currently sinus with 1st degree AV), Hypertension Gastrointestional: DENIES: Obstructive Bowel, Hepatitis, Cirrhosis, Nausea or Vomiting Present, Gastroesophageal Reflux Disease, Gastrointestinal Bleeding, Hiatal Hernia, Ulcer , Morbid Obesity, Other Neuro/Musculoskeletal: Denies: HX.MS.OSAR, Back Problems, Cerebrovascular Accident, Depression, Headaches, Loss of Consciousness, Muscle Weakness, Neuromuscular Disorder, Paralysis, Paresthesia, Syncope, Seizures, Other Renal/Endocrine: DENIES: Diabetes Mellitus Type 1, Diabetes Mellitus Type 2, Renal Failure, Dialysis, Thyroid Disease, Weight Loss, Weight Gain, Other Other History: DENIES: Anesthesia Reactions, Now, Blood Transfusions, Chemotherapy , Cancer, Hemophilia, Malignant Hyperthermia, Sickle Cell Disease, Other - Surgical History HEENT Surgeries: Reports: Tonsillectomy (1944) Cardiac Surgeries/Treatments: Reports: Cardiac Catheterization (2015) Musculoskeletal Surgery/Tx: Reports: Other (Vertebroplasty 2016) Anesthesia Reactions: None Hx Family Anesthesia Reaction: No History of Motion Sickness: No - Social History Smoking Status: Former smoker Substance Use Type: does not use - Pertinent Findings Laboratory: CBC and BMP 04/29/17 04:00 04/29/17 04:00 BMP 04/29/17 04:00 Sodium 133 L Potassium 4.2 Chloride 102 Carbon Dioxide 23 BUN 14.0 Creatinine 1.0 Glucose 101 Calcium 8.4 Liver Function 04/29/17 Range/Units 04:00 Total Bilirubin 0.90 (0.20-1.30) MG/DL AST 22 (17-59) U/L ALT 38 (21-72) U/L Alkaline Phosphatase 57 (38-126) U/L Albumin 3.4 L (3.5-5.0) G/DL EKG: Sinus Rhythm, First Degree AV Block - Physical Exam Respiratory Exam: Present: lungs clear, bilateral breath sounds equal Cardiovascular Exam: Present: regular rate and rhythm, no murmur - Airway Assessment Mallampati Score: II TMD: 3 Fingerbreadths Neck Extension: fair Overall Assessment: may be difficult intubation - ASA ASA Score: 2 - Plan Anesthesia: General TIVA, General Inhalation Gases - Discussion Discussion: Discussed risks/options/alternatives of anesthesia and questions answered. Patient consents. Nursing pain assessment noted. Present for Discussion: spouse, children Attestation Statement: Prior to the delivery of any anesthetic medication, I examined the patient, developed the plan, obtained the patient's consent and discussed the risk and benefits of the procedure with the patient/guardian. - Additional Information Seen by Anesthesia: Yes
[2017-04-29] MEDS ORDERED: PROPOFOL 20 ML ONE (11:00)
[2017-04-29] MEDS ORDERED: KETAMINE 500 MG/10 ML INJECTION ONE (11:10)
[2017-04-29] MEDS ORDERED: FentaNYL 100 MCG/2 ML INJECTION ONE (11:14)
[2017-04-29] MEDS ORDERED: BUPIVACAINE 0.25% (2.5mg/ml) PF 30ml INJECTION INFIL ONE (12:17)
[2017-04-29] MEDS ORDERED: VANCOMYCIN 1,000 MG INJECTION IAR ONE (12:17)
[2017-04-29] MEDS ORDERED: HYDROMORPHONE 2 MG/ML INJECTION ONE (12:30)
--- NOTE | 2017-04-29 14:01 | Post Procedure Note ---
Date of Procedure: 04/29/17 Orthopedic Surgeon: Betsey Orthopedic Assisting Surgeon: Rc Mcclure Anesthesia: General TIVA, General Inhalation Gases Procedure: Procedures Operation Date: 04/29/17 11:00 Actual Procedures p Hemiarthroplasty Right Hip(Right) - Wolfgang Leggett MD Condition: Stable Disposition: PACU
[2017-04-29] MEDS ORDERED: CEFAZOLIN 1 G in NS 100 ML IV SCH (14:25)
[2017-04-29] MEDS ORDERED: HYDROCODONE/APAP 7.5 MG/325 MG TABLET PO PRN (14:25)
[2017-04-29] MEDS: NOZIN NASAL SWAB NAS SCH ×3 (14:46→21:56)
[2017-04-29] MEDS: NS 1,000 ML IV SCH (14:48)
--- NOTE | 2017-04-29 14:49 | XRay Report ---
Indication: postop x-ray PROCEDURE: XR pelvis 1-2V: Encounter: Initial Comparison: CT hip dated April 27, 2017 Findings: Postoperative changes of right femoral head replacement are seen. There is expected postoperative subcutaneous gas. No evidence of hardware failure or acute fracture. No retained radiopaque surgical instruments or sponges seen. Impression: New right femoral head prosthesis without evidence of immediate complication. .
--- NOTE | 2017-04-29 15:09 | Anesthesia Postoperative Note ---
- Date and Time Date: 04/29/17 Time: 15:08 - Status Patient Participated in Evaluation: Patient Participated in Person Vital Signs: Temperature 97.4 F 04/29/17 14:34 Pulse Rate 69 04/29/17 14:30 Respiratory Rate 19 04/29/17 14:30 Blood Pressure 150/66 H 04/29/17 14:30 Pulse Oximetry 96 04/29/17 14:30 Respiratory Function: Airway Patent Cardiovascular Function: Regular Pulse EKG: Sinus Rhythm Mental Status: Alert and Oriented Pain Intensity: 0 Hydration: Taking PO Fluids Complications During Recover: None Apparent - Follow-Up Instructions Instructions: Per Surgeon
--- NOTE | 2017-04-29 15:11 | Progress Note ---
- Date 04/29/17 Subjective: F/U: Subcapital right femoral neck fracture, Mechanical fall Resting in bed post op; family at bedside. Reports pain controlled-not hurting. No nausea or ab pain. Breathing feels well-denies cough, congestion, or pain with breathing. Nose feels dry. Tolerating Mccray cath. Objective Vital signs: Temperature 97.4 F 04/29/17 14:34 Pulse Rate 69 04/29/17 14:30 Respiratory Rate 19 04/29/17 14:30 Blood Pressure 150/66 H 04/29/17 14:30 Pulse Oximetry 96 04/29/17 14:30 Height/Weight/BMI: Height 1.83 m Weight 83.7 kg Body Mass Index 24.9 - Constitutional Present: well nourished, well developed, average body habitus, cooperative - Routine HEENT Exam Head: Present: normocephalic, atraumatic Eye: Present: EOMI, PERRL - Routine Respiratory Exam Present: decreased breath sounds. Absent: rales, respiratory distress, rhonchi , stridor, wheezes, crackles - Routine Cardiovascular Exam Present: RRR, no murmur - Routine Abdominal Exam Present: soft, non distended, non tender. Absent: normoactive bowel sounds ( Decreased ), guarding - Routine Exam Comments: Mccray cath present - Routine Extremities Exam Present: no edema, pulses intact. Absent: cyanosis, clubbing Comments: SCD in place - Routine Musculoskeletal Exam Musculoskeletal: Present: no clubbing or cyanosis - Routine Skin Exam Present: dry, warm - Routine Neurological Exam Present: alert, CN II-XII intact, vision grossly intact, hearing grossly intact. Absent: motor deficit, altered mental status - Routine Psychiatric Exam Present: normal affect, normal thought process, cooperative Results - Labs CBC & Chem 7: 04/29/17 04:00 04/29/17 04:00 Assessment and Plan Assessment and Plan: Assessment Subcapital right femoral neck fracture Mechanical fall Chronic afib Anticoagulation with Eliquis HTN HDL BPH Chronic constipation Chronic gait instability Hyponatremia (Not POA) Plan Underwent Hemiarthroplasty of right hip by Dr Leggett. PT/OT consulted to maximize functional status. Eliquis to restart this evening - continue SCD. Continue low flow NS until oral drive improves. Bowel medications ordered. Encourage IS and pulmonary toilet. Recheck CBC in am to monitor for anemia. Recheck BMP in am secondary to IVF and medications use. CM working on post discharge rehabilitation option. Case discussed with CM and family. Time spent with patient care 25 minutes. DVT Prophylaxis: SCD's Resuscitation Status: Full Code - Time spent with patient Time with patient PN: 25 minutes - Physician Narrative Physician: Austin Mota MD Narrative: Date: 04/29/17 Time: 1508 Hospital Course Summary Disclaimer: The visit summary below is not to be considered part of the above Progress Note. Hospital Course: Assessment Subcapital right femoral neck fracture Mechanical fall Chronic afib Anticoagulation with Eliquis HTN HDL BPH Chronic constipation Chronic gait instability 04/27/17 Admit to Hospitalist service - anticipate greater than 2 midnights of care needed. Consult Orthopedics - Dr. Leggett. IVFs at 75 cc /hour Regular diet for now - will need to be NPO after midnight tomorrow night Home meds as indicated Hold Eliquis per Ortho's recommendation. SCDs for DVT prevention. UA pending - Mccray placed in ER. Telemetry secondary to afib Increase Amlodipine to 5mg po x one tonight, then resume usual home dose. Continuous pulse oximetry. Supportive care - prn Morphine prn pain, prn Zofran as directed. 04/28/17 Surgery planned for tomorrow to allow for Eliquis to leave system - will hold on Lovenox today as Eliquis still with effect. Consult Dr Jeffrey for Metabolic Bone Evaluation. Check Vitamin D level and CMP. Routine Senna Plus to help bowel motivation. PRN Miralax, MOM, and Dulcolax suppositories. IS to help pulmonary toilet. Consult with PT/OT post op. Medically stable for surgery planned for tomorrow. 04/29/17 OP DAY Underwent Hemiarthroplasty of right hip by Dr Leggett. PT/OT consulted to maximize functional status. Eliquis to restart this evening - continue SCD. Continue low flow NS until oral drive improves. Bowel medications ordered. Encourage IS and pulmonary toilet. Recheck CBC in am to monitor for anemia. Recheck BMP in am secondary to IVF and medications use. CM working on post discharge rehabilitation option.
--- NOTE | 2017-04-29 15:36 | Metabolic Bone Disease Consult ---
Orthopedic Consultation HPI - Consultation Info Consult Date: 04/29/17 Attending Physician: Austin Mota MD Consult Reason: fracture - History of Present Illness This is an 86 yo male who is the grandfather of Dr Paul Julien. He was brought to [facility] [place] [facility] by ambulance after a fall in his home on 04/27/17. He had immediate right hip pain and was unable to ambulate, although was able to get up to a chair prior to EMS arrival. He was moving an empty gift bag with his foot and lost his balance which resulted in his fall. He denies LOC, denies syncope , and did not feel lightheaded or dizzy prior to the fall. He reports several falls over the past year, feels he is slowly getting weaker and occasionally uses a cane for ambulation. [facility] Patient Stated Medical History Cerebrovascular Accident No Paralysis No Seizures No Syncope No Cardiac Arrhythmia Yes: Afib- currently sinus with 1st degree AV Hypertension Yes Sleep Apnea No Diabetes Mellitus Type 1 No Diabetes Mellitus Type 2 No Cirrhosis No Gastroesophageal Reflux No Disease Gastrointestinal Bleeding No Hepatitis No Hiatal Hernia No Obstructive Bowel No Ulcer No Other GI No Hx Benign Prostatic Yes Hyperplasia Clotting Problems Yes: pt unsure, is on anticoagulant Osteoarthritis No Other Musculoskeletal No Anesthesia Reactions No Blood Transfusions No Chemotherapy No Malignant Hyperthermia No Other No Depression No Now No Medical History Updates: A-fib. HTN. HLD - Social History Smoking status: Former smoker Medications Home Medications Medication Instructions Recorded Confirmed Type Cholecalciferol [Vit. D-3] 1,000 unit PO BID #0 03/20/14 04/27/17 History Apixaban [Eliquis] 5 mg PO BID #0 12/25/15 04/27/17 History Amiodarone [Pacerone] 200 mg PO DAILY 04/27/17 04/27/17 History Amlodipine [Norvasc] 2.5 mg PO HS 04/27/17 04/27/17 History Cyanocobalamin (Vitamin B-12) 1,000 mcg PO DAILY 04/27/17 04/27/17 History [Vitamin B-12] Olmesartan Medoxomil [Olmesartan 20 mg PO DAILY 04/27/17 04/27/17 History Medoxomil] Olds-3/Dha/Epa/Fish Oil [Fish Oil 1,000 mg PO BID 04/27/17 04/27/17 History 1,000 mg Softgel] Allergies Allergy/AdvReac Type Severity Reaction Status Date / Time No Known Allergies Allergy Verified 04/27/17 18:52 Orthopedic Exam Vital signs: Temperature 99.3 F 04/28/17 07:32 Pulse Rate 63 04/28/17 07:32 Respiratory Rate 18 04/28/17 07:32 Blood Pressure 144/71 H 04/28/17 07:32 Pulse Oximetry 93 04/28/17 07:32 - Constitutional General Appearance: Present: alert, cooperative, no acute distress, well developed, well nourished - Respiratory Exam Present: non-labored - Cardiovascular Exam Present: pedal pulses intact - Abdominal Exam Present: soft. Absent: tenderness - Extremities Exam Present: no edema, pulses intact. Absent: cyanosis, clubbing - Integumentary Exam Present: pink, warm, dry, other (Abrasion to the right ear.) - Neurological Exam Present: intact to light touch, no deficits - Psychiatric Exam Present: alert, normal affect Results - Labs Labs: Short CBC 04/29/17 Range/Units 04:00 WBC 8.0 (4.5-11.0) T/MM3 Hgb 13.1 L (13.5-17.5) GM/DL Hct 38.6 L (41-53) % Plt Count 104 L (130-400) T/MM3 BMP 04/29/17 04:00 Sodium 133 L Potassium 4.2 Chloride 102 Carbon Dioxide 23 BUN 14.0 Creatinine 1.0 Glucose 101 Calcium 8.4 Liver Function 04/29/17 Range/Units 04:00 Total Bilirubin 0.90 (0.20-1.30) MG/DL AST 22 (17-59) U/L ALT 38 (21-72) U/L Alkaline Phosphatase 57 (38-126) U/L Albumin 3.4 L (3.5-5.0) G/DL Impression and Recommendation (1) Osteopenia Current visit: Yes Status: Acute start Caltrate with D. Needs evaluation for balance at some point. Would start quad strengthening exercises if possible and PT eval for balance concerns. - Site of Current Fracture Lower Limb: Hip - Fracture History History of Fracture Age 50 or Older: No - Risk Factors Lifestyle Factors: History of Falls History of Rheumatoid Arthritis: No Secondary Osteoporosis Due To Condition/Medication: No - Treatment/Counseling Calcium 1200 mg/day (in divided doses): Yes Vitamin D at least 800-1000 IU/day: Yes Regular Weight Bearing and Muscle Strengthing Exercise: Yes Fall Prevention: Yes Smoking Cessation: Yes Alcohol Comsumption (no more than 2 drinks/day): Yes - Pharmacologic Treatment Recomend Pharmacologic Therapy: No Therapy Not Recommended Due To: Bone Health Assessment Ongoing Pharmacologic Therapy Initiated: No Reason Not Initiating Therapy: Treatment Planned For Future - Bone Mineral Density Testing Was BMD Testing Recommended: No BMD Testing: Planned/Scheduled - Written Communication Was Patient Provided With A Letter: Yes Letter Provided To Patient's PCP: Yes Discharge Status: Discharge To SNF/Rehab Date of Initial Screen: 04/29/17 [age]: [age] Height/Weight: Height 1.83 m Weight 83.7 kg Body Mass Index 24.9 - Medications Home Medications: Home Medications Medication Instructions Recorded Confirmed Type Cholecalciferol [Vit. D-3] 1,000 unit PO BID #0 03/20/14 04/27/17 History Apixaban [Eliquis] 5 mg PO BID #0 12/25/15 04/27/17 History Amiodarone [Pacerone] 200 mg PO DAILY 04/27/17 04/27/17 History Amlodipine [Norvasc] 2.5 mg PO HS 04/27/17 04/27/17 History Cyanocobalamin (Vitamin B-12) 1,000 mcg PO DAILY 04/27/17 04/27/17 History [Vitamin B-12] Olmesartan Medoxomil [Olmesartan 20 mg PO DAILY 04/27/17 04/27/17 History Medoxomil] Olds-3/Dha/Epa/Fish Oil [Fish Oil 1,000 mg PO BID 04/27/17 04/27/17 History 1,000 mg Softgel]
[2017-04-29] MEDS: AMLODIPINE 2.5 MG TABLET PO SCH (20:09)
[2017-04-29] MEDS: CEFAZOLIN 1 G in NS 100 ML IV SCH (20:09)
[2017-04-29] MEDS: APIXABAN 5 MG TABLET PO SCH (20:10)
[2017-04-30] MEDS: NS 1,000 ML IV SCH (02:21)
[2017-04-30] MEDS: CEFAZOLIN 1 G in NS 100 ML IV SCH (03:50)
[2017-04-30] MEDS: NOZIN NASAL SWAB NAS SCH ×3 (06:09→21:25)
[2017-04-30] MEDS ORDERED: PNEUMOCOCCAL 13 VACCINE 0.5ml INJECTION IM ONE (09:00)
[2017-04-30] MEDS ORDERED: BISACODYL 10 MG SUPPOSITORY RECTALLY ONE (10:35)
--- NOTE | 2017-04-30 10:40 | Orthopedic Progress Note ---
Date: Date: 04/30/17 Time: 1037 Subjective/Severity of Illness: Remberto is doing well this AM. His pain is controlled. He denies chest pain, SOB or calf pain. He is sitting up in his recliner as I enter. He notes he has not had a BM since 04/25/17. He does not feel distended and has been able to keep food down. Senna and Ducolax are ordered. He has yet to get up with PT. Hgb is 12.2. Sodium is 133. Orthopedic Objective PO Vital signs: Temperature 97.9 F 04/30/17 07:52 Pulse Rate 91 04/30/17 07:52 Respiratory Rate 20 04/30/17 07:52 Blood Pressure 124/66 04/30/17 07:52 Pulse Oximetry 92 04/30/17 07:52 Height and Weight: Height 6 ft Weight 184 lb 8.43 oz Body Mass Index 24.9 - Constitutional General Appearance: Present: alert, cooperative, no acute distress, well developed, well nourished - Respiratory Exam Present: non-labored - Cardiovascular Exam Present: pedal pulses intact - Abdominal Exam Present: soft. Absent: tenderness, distended - Extremities Exam Extremities: Present: pulses intact, calf tenderness. Absent: tenderness - Hip Exam Hip Exam: Present: decreased ROM (felxion), decreased ROM (rotation). Absent: unequal leg length, abnormal rotation - Surgical Site Incision: clean, dry, intact, no drainage - Integumentary Exam Present: pink, warm, dry, other (Abrasion to the right ear.) - Lymphatic Lymphatic: Absent: lymphedema - Neurological Exam Present: intact to light touch, no deficits - Psychiatric Exam Present: alert, normal affect - Labs Result Diagrams: 04/30/17 04:26 04/30/17 04:26 Abnormal lab results 04/30/17 04/30/17 Range/Units 04:26 04:26 RBC 3.82 L (4.50-5.90) M/MM3 Hgb 12.2 L (13.5-17.5) GM/DL Hct 36.2 L (41-53) % Plt Count 102 L (130-400) T/MM3 Neut % (Auto) 81.9 H (33-66) % Lymph % (Auto) 8.4 L (23-45) % Lymph # (Auto) 0.7 L (1-4.8) T/MM3 Sodium 133 L (134-144) MEQ/L Creatinine 0.7 L D (0.8-1.5) MG/DL Glucose 125 H (75-110) MG/DL Calculated Osmolality 258 L (261-280) MOSM/KG Calcium 8.0 L (8.4-10.2) MG/DL H & H 04/28/17 04/29/17 04/30/17 Range/Units 04:01 04:00 04:26 Hgb 13.3 L D 13.1 L 12.2 L (13.5-17.5) GM/DL Hct 39.1 L D 38.6 L 36.2 L (41-53) % Orthopedic Assessment and Plan (1) Osteopenia Status: Acute (2) Subcapital fracture of femur Status: Acute Qualifiers: Encounter type: initial encounter Fracture type: closed Laterality: right Qualified Code(s): S72.011A - Unspecified intracapsular fracture of right femur, initial encounter for closed fracture Assessment and Plan: s/p right hip endoprosthesis by Dr. Leggett on 04/29/17. PT/OT for mobilization inspector health care facilities for discharge plan. I spoke with Shilpi DILLON with hospital service and she noted their is a chance of an IRU transfer tomorrow. For DVT prevention we will continue with his pre op Eliquis. He has some constipation, we will give him a Ducolax today. Hospital Course Summary Disclaimer: The visit summary below is not to be considered part of the above Progress Note. Hospital Course: Assessment Subcapital right femoral neck fracture Mechanical fall Chronic afib Anticoagulation with Eliquis HTN HDL BPH Chronic constipation Chronic gait instability 04/27/17 Admit to Hospitalist service - anticipate greater than 2 midnights of care needed. Consult Orthopedics - Dr. Leggett. IVFs at 75 cc /hour Regular diet for now - will need to be NPO after midnight tomorrow night Home meds as indicated Hold Eliquis per Ortho's recommendation. SCDs for DVT prevention. UA pending - Mccray placed in ER. Telemetry secondary to afib Increase Amlodipine to 5mg po x one tonight, then resume usual home dose. Continuous pulse oximetry. Supportive care - prn Morphine prn pain, prn Zofran as directed. 04/28/17 Surgery planned for tomorrow to allow for Eliquis to leave system - will hold on Lovenox today as Eliquis still with effect. Consult Dr Jeffrey for Metabolic Bone Evaluation. Check Vitamin D level and CMP. Routine Senna Plus to help bowel motivation. PRN Miralax, MOM, and Dulcolax suppositories. IS to help pulmonary toilet. Consult with PT/OT post op. Medically stable for surgery planned for tomorrow. 04/29/17 OP DAY Underwent Hemiarthroplasty of right hip by Dr Leggett. PT/OT consulted to maximize functional status. Eliquis to restart this evening - continue SCD. Continue low flow NS until oral drive improves. Bowel medications ordered. Encourage IS and pulmonary toilet. Recheck CBC in am to monitor for anemia. Recheck BMP in am secondary to IVF and medications use. CM working on post discharge rehabilitation option.
[2017-04-30] MEDS: APIXABAN 5 MG TABLET PO SCH ×2 (11:35→21:12)
[2017-04-30] MEDS: CYANOCOBALAMIN (B-12) 500mcg TABLET PO SCH (11:35)
[2017-04-30] MEDS: AMIODARONE 200 MG TABLET PO SCH (11:36)
[2017-04-30] MEDS: SENNA + DOCUSATE TABLET PO SCH ×2 (11:36→21:11)
--- NOTE | 2017-04-30 11:46 | Progress Note ---
- Date 04/30/17 Subjective: Mr. fowler was seen after finishing breakfast. He ordered raisin bran and prune juice because he is constipated. Last bowel movement was 4-5 days ago. He has been eating well and denies any nausea or vomiting. His hip doesn't bother him as long as he is sitting still, but with movement. It becomes moderately painful. He denies feeling short of breath. He denies feeling dizzy. Objective Vital signs: Temperature 98.1 F 04/30/17 11:30 Pulse Rate 79 04/30/17 11:30 Respiratory Rate 16 04/30/17 11:30 Blood Pressure 113/58 04/30/17 11:30 Pulse Oximetry 93 04/30/17 11:30 Rhythm: Normal Sinus Rhythm Height/Weight/BMI: Height 1.83 m Weight 83.7 kg Body Mass Index 24.9 - Constitutional Present: no acute distress, well nourished, well developed - Routine HEENT Exam Head: Present: normocephalic Eye: Present: PERRL (pupils are pinpoint) ENT: Present: mucous membranes moist, oropharynx clear - Routine Respiratory Exam Present: CTA bilaterally - Routine Cardiovascular Exam Present: RRR, S1, S2 - Routine Abdominal Exam Present: distended. Absent: normoactive bowel sounds (hypoactive bowel sounds) , tenderness - Routine Exam Comments: Mccray catheter to dependent drainage - Routine Extremities Exam Present: no edema, pulses intact - Routine Skin Exam Present: intact, dry, warm - Routine Neurological Exam Present: alert, moving all extremities, normal speech - Routine Psychiatric Exam Present: normal affect, normal thought process, cooperative Results - Labs CBC & Chem 7: 04/30/17 04:26 04/30/17 04:26 Assessment and Plan Assessment and Plan: Assessment Subcapital right femoral neck fracture - status post right hip endoprosthesis, per Dr. Leggett on 04/29/17 Mild blood loss anemia Hyponatremia, not present on admission Mechanical fall Chronic afib Anticoagulation with Eliquis HTN HDL BPH Chronic constipation Chronic gait instability Hyponatremia (Not POA) Thrombocytopenia (POA) Plan Postop day #1, hemoglobin stable at 12.2; continue PT/OT For constipation, Rc Mcclure has already ordered a suppository. Will add daily MiraLAX, increase to 2 senna plus BID Oral intake improving - DC IVF. Hope for discharge to IRU soon. DVT Prophylaxis: Eliquis Resuscitation Status: Full Code - Time spent with patient Time with patient PN: 25 minutes - Physician Narrative Physician: Austin Mota MD Narrative: Date: 04/30/17 Time: 1510 Have independently interviewed and examined pt. Chart reviewed. Case discussed with CM and my VALVE REPAIRER. Care plan developed with my supervision; agree with above. Doing well today. Notes hip pain with movements, but medications helping his discomfort. Tolerating pain medications. No nausea, but bowel function slow. Breathing well-not SOA or congested. No pain with breathing. Lungs: decreased bilaterally, no distress CV: Regular AB: soft, decreased BS EXT: no edema, SCD in place. MSE: awake alert appropriate Plan: IVF discontinued as oral drive improved. Start bladder retaining - possible D/C Mccray tomorrow. PT/OT to help increase functional statu. Vit D level low normal-continue home Vit D, adding Ca with vit D BID. Increase bowel motivation. Continue pain control. Encourage pulmonary toilet. CM working on discharge rehabilitation options. Hospital Course Summary Disclaimer: The visit summary below is not to be considered part of the above Progress Note. Hospital Course: Assessment Subcapital right femoral neck fracture Mechanical fall Chronic afib Anticoagulation with Eliquis HTN HDL BPH Chronic constipation Chronic gait instability 04/27/17 Admit to Hospitalist service - anticipate greater than 2 midnights of care needed. Consult Orthopedics - Dr. Leggett. IVFs at 75 cc /hour Regular diet for now - will need to be NPO after midnight tomorrow night Home meds as indicated Hold Eliquis per Ortho's recommendation. SCDs for DVT prevention. UA pending - Mccray placed in ER. Telemetry secondary to afib Increase Amlodipine to 5mg po x one tonight, then resume usual home dose. Continuous pulse oximetry. Supportive care - prn Morphine prn pain, prn Zofran as directed. 04/28/17 Surgery planned for tomorrow to allow for Eliquis to leave system - will hold on Lovenox today as Eliquis still with effect. Consult Dr Jeffrey for Metabolic Bone Evaluation. Check Vitamin D level and CMP. Routine Senna Plus to help bowel motivation. PRN Miralax, MOM, and Dulcolax suppositories. IS to help pulmonary toilet. Consult with PT/OT post op. Medically stable for surgery planned for tomorrow. 04/29/17 OP DAY Underwent Hemiarthroplasty of right hip by Dr Leggett. PT/OT consulted to maximize functional status. Eliquis to restart this evening - continue SCD. Continue low flow NS until oral drive improves. Bowel medications ordered. Encourage IS and pulmonary toilet. Recheck CBC in am to monitor for anemia. Recheck BMP in am secondary to IVF and medications use. CM working on post discharge rehabilitation option. 04/30/17 Postop day #1, hemoglobin stable at 12.2; continue PT/OT Constipation - suppository ordered; added daily MiraLAX, increase to 2 senna plus BID Oral intake improving - DC IVF.
--- NOTE | 2017-04-30 12:39 | Operative Note ---
DATE OF SURGERY 04/27/2017 PREOPERATIVE DIAGNOSIS Closed displaced right transcervical femoral neck fracture. POSTOPERATIVE DIAGNOSIS Closed displaced right transcervical femoral neck fracture. PROCEDURE Right hip endoprosthesis (hemiarthroplasty), SURGEON Wolfgang Leggett MD FANCY PACKER Rc Mcclure PA-C ANESTHESIA General. FLUIDS Please refer to Anesthesia chart. EBL Please refer to Anesthesia chart. COMPLICATIONS None. CONDITION Stable in recovery room. IMPLANTS Sciota Omnifit QUINTEN 132-degree cemented stem size #9 with 56-mm Unitrax endoprosthesis head component, +0 mm C-taper neck size medium distal cement restrictor plug. DESCRIPTION OF OPERATION The patient was identified in preoperative holding area. The operative extremity was identified and appropriately marked. Risks, benefits, alternatives and potential complications were discussed and informed consent was obtained. The patient was taken to the operating theatre. Appropriate cardiorespiratory monitors were applied and general anesthesia was administered while still on his hospital bed. He was then transferred to the operative table which had a pegboard beneath. The patient was then positioned in a lateral decubitus position with the operative right hip upwards. An axillary roll was placed and all bony prominences were well padded. The patient was secured to the pegboard with well-padded pegs. The right lower extremity was then sterilely prepped and draped in the usual fashion. Surgical time-out was performed, confirmed with myself, the rental clerk tool and equipment and circulating nurse. Preoperative antibiotics were given. A curvilinear lateral incision was created for a posterior approach to the right hip. Electrocautery was used for hemostasis as necessary as dissection carried through the subcutaneous fat. IT band fascia was then identified. A small rent was made under direct visualization. Toney scissors were used to release the IT band distally and proximally to the gluteal fascia. Blunt dissection through the gluteal fascia and the underlying gluteus kaykay muscle posteriorly was performed. The bursal layer was then identified. It was released with electrocautery from the lateral aspect of the greater trochanter and bluntly reflected posteriorly with a lap sponge. The sciatic nerve was able be palpated deep within the wound and remained out of harm's way. The piriformis tendon was then identified as the gluteus medius was retracted. The fascia above the piriformis tendon was incised and a retractor was placed underneath the gluteus medius tendon as the gluteus minimus and medius were now protected. Piriformis was then tagged with a suture and released from its attachment at the piriformis fossa. Capsulotomy was then performed in line with the neck to the base of the neck as well. The capsule was reflected inferiorly off of the neck and the short external rotators were released with Bovie electrocautery from their bony attachment. The lesser trochanter was then able to be palpated. The hip was then placed in a 90-degree external rotation position. The external guide for the femoral neck osteotomy was positioned and a line scored on the femoral neck with electrocautery. Retractors were then placed and an oscillating saw was utilized to perform a neck osteotomy. This bone was then removed. The nondalton femoral head was then removed utilizing a Steinmann pin and a Clemens elevator. It was then measured at the back table. The acetabulum was inspected, noting no significant chondral loss. Ligamentum was identified and resected. We then trialed femoral heads and opted for a size 56 which provided a good fit. Attention was then turned towards preparation of the proximal femoral canal. The hip was internally rotated, delivering the femur as it was adducted as well. Retractors were again placed. A Dabble DB cutter was used to open the proximal canal followed by the canal finder and then sequential reamings. We reamed to a size 9 cemented. We then progressively broached to the same 9, maintaining appropriate and nondalton version. We then had the trial head and 0 offset neck placed. We then reduced the hip. We checked and overall found good stability and what was felt to be equal leg length. It was elected to proceed with this stem and likely head but we would trial this again later. The hip was again dislocated and the prosthesis was then removed. The canal was then prepared by irrigating and drying in preparation for cement and implantation of the final prosthetic stem. The medium bone plug was placed distally approximately 1-2 cm below the level of the tip of the implant. Cement was mixed at the back table and then brought forward. Retrograde filling of the canal followed by pressurization proximally were performed. The prosthesis was then inserted, again maintaining appropriate anteversion. The extraneous cement was removed and the cement was allowed to cure over approximately 12-15 minutes. Examination of the acetabulum again showed no evidence of loose body or cement debris. The trial head and neck were again placed on the implanted stem and the hip was reduced. We again found good stability and good leg length. We opted to utilize these components. The components were opened at the back table. The Tejada taper was then cleaned and dried and the neck component was impacted followed by impaction of the head. The hip was then again reduced after copious irrigation of the acetabulum and the capsule. Vancomycin powder was placed into the joint. The capsulotomy was repaired with multiple interrupted [id number] #5 Ethibond sutures. Piriformis was repaired through bone tunnels to the piriformis fossa. The external rotators again were also repaired through bone tunnels under the posterior aspect of the greater trochanter. The wound was then irrigated again and additional vancomycin powder was placed. Retractors were removed. The IT band was closed with multiple interrupted #1 PDS sutures. The gluteal fascia was closed with running #1 Vicryl suture. The subcutaneous layer was then irrigated and then closed in standard layered fashion. Marcaine had been injected along the capsule and also in the subcutaneous tissues for postoperative analgesia. Sterile dressings were then applied. The patient was then transferred back to his hospital bed and awakened from anesthesia. He was taken to the recovery room from there. ISAAC
[2017-04-30] MEDS ORDERED: PNEUMOCOCCAL VAC ADMIN CHARGE INJ ONE (18:00)
[2017-04-30] MEDS: CALCIUM 600 + VIT D 400 TABLET PO SCH (21:11)
[2017-04-30] MEDS: AMLODIPINE 2.5 MG TABLET PO SCH (21:12)
[2017-05-01] MEDS: NOZIN NASAL SWAB NAS SCH ×3 (05:44→14:21)
[2017-05-01] MEDS: CYANOCOBALAMIN (B-12) 500mcg TABLET PO SCH (08:41)
[2017-05-01] MEDS: SENNA + DOCUSATE TABLET PO SCH (08:41)
[2017-05-01] MEDS: APIXABAN 5 MG TABLET PO SCH (08:41)
[2017-05-01] MEDS: AMIODARONE 200 MG TABLET PO SCH (08:42)
[2017-05-01] MEDS: CALCIUM 600 + VIT D 400 TABLET PO SCH (08:42)
[2017-05-01] MEDS ORDERED: POLYETHYL GLYCOL 3350 17gm PACKET PO SCH (09:00)
[2017-05-01] MEDS ORDERED: FUROSEMIDE 20 MG/2 ML INJECTION IVP ONE (10:15)
--- NOTE | 2017-05-01 10:20 | Orthopedic Progress Note ---
Date: Date: 05/01/17 Time: 101 Subjective/Severity of Illness: Remberto is feeling okay this AM. He had a BM yesterday. Mobility was slow, but he did get up and take a few steps. His weight is up from 187 on 04/29/17 to 191 today. His Creatine is up .4 in 24 hours. He denies shortness of breath , is on room air, O2 sats 90%. HTN is noted, hospital service is adjusting medications. Orthopedic Objective PO Vital signs: Temperature 100.3 F 05/01/17 07:51 Pulse Rate 80 05/01/17 07:53 Respiratory Rate 16 05/01/17 07:51 Blood Pressure 137/60 05/01/17 07:51 Pulse Oximetry 90 05/01/17 07:51 Height and Weight: Height 6 ft Weight 191 lb 12.835 oz Body Mass Index 24.9 - Constitutional General Appearance: Present: alert, cooperative, no acute distress, well developed, well nourished - Respiratory Exam Present: non-labored - Cardiovascular Exam Present: pedal pulses intact - Abdominal Exam Present: soft. Absent: tenderness, distended - Extremities Exam Extremities: Present: pulses intact. Absent: calf tenderness, tenderness Comments: right lower extremity edema notes 2/4 around ankle. - Hip Exam Hip Exam: Present: decreased ROM (felxion), decreased ROM (rotation). Absent: unequal leg length, abnormal rotation - Surgical Site Incision: clean, dry, intact, no drainage - Integumentary Exam Present: pink, warm, dry, other (Abrasion to the right ear.) - Lymphatic Lymphatic: Absent: lymphedema - Neurological Exam Present: intact to light touch, no deficits - Psychiatric Exam Present: alert, normal affect - Labs Result Diagrams: 05/01/17 04:23 05/01/17 04:23 Abnormal lab results 05/01/17 05/01/17 Range/Units 04:23 04:23 RBC 3.44 L (4.50-5.90) M/MM3 Hgb 11.2 L (13.5-17.5) GM/DL Hct 32.6 L (41-53) % Plt Count 100 L (130-400) T/MM3 Neut % (Auto) 76.0 H (33-66) % Lymph % (Auto) 13.7 L (23-45) % Sodium 133 L (134-144) MEQ/L BUN 23.0 H D (9-20) MG/DL Calculated Osmolality 260 L (261-280) MOSM/KG H & H 04/28/17 04/29/17 04/30/17 Range/Units 04:01 04:00 04:26 Hgb 13.3 L D 13.1 L 12.2 L (13.5-17.5) GM/DL Hct 39.1 L D 38.6 L 36.2 L (41-53) % 05/01/17 Range/Units 04:23 Hgb 11.2 L (13.5-17.5) GM/DL Hct 32.6 L (41-53) % Orthopedic Assessment and Plan (1) Osteopenia Status: Acute (2) Subcapital fracture of femur Status: Acute Qualifiers: Encounter type: initial encounter Fracture type: closed Laterality: right Qualified Code(s): S72.011A - Unspecified intracapsular fracture of right femur, initial encounter for closed fracture Assessment and Plan: s/p right hip endoprosthesis by Dr. Leggett on 04/29/17. PT/OT for mobilization child day care provider for discharge plan. I spoke with Shilpi DILLON with hospital service and she noted their is a chance of an IRU transfer tomorrow. For DVT prevention we will continue with his pre op Eliquis. He has some constipation, we will give him a Ducolax today. I'll give him a one time dose of Lasix 20mg IV and ask for the hospitalist service input. Hospital Course Summary Disclaimer: The visit summary below is not to be considered part of the above Progress Note. Hospital Course: Assessment Subcapital right femoral neck fracture Mechanical fall Chronic afib Anticoagulation with Eliquis HTN HDL BPH Chronic constipation Chronic gait instability 04/27/17 Admit to Hospitalist service - anticipate greater than 2 midnights of care needed. Consult Orthopedics - Dr. Leggett. IVFs at 75 cc /hour Regular diet for now - will need to be NPO after midnight tomorrow night Home meds as indicated Hold Eliquis per Ortho's recommendation. SCDs for DVT prevention. UA pending - Mccray placed in ER. Telemetry secondary to afib Increase Amlodipine to 5mg po x one tonight, then resume usual home dose. Continuous pulse oximetry. Supportive care - prn Morphine prn pain, prn Zofran as directed. 04/28/17 Surgery planned for tomorrow to allow for Eliquis to leave system - will hold on Lovenox today as Eliquis still with effect. Consult Dr Jeffrey for Metabolic Bone Evaluation. Check Vitamin D level and CMP. Routine Senna Plus to help bowel motivation. PRN Miralax, MOM, and Dulcolax suppositories. IS to help pulmonary toilet. Consult with PT/OT post op. Medically stable for surgery planned for tomorrow. 04/29/17 OP DAY Underwent Hemiarthroplasty of right hip by Dr Leggett. PT/OT consulted to maximize functional status. Eliquis to restart this evening - continue SCD. Continue low flow NS until oral drive improves. Bowel medications ordered. Encourage IS and pulmonary toilet. Recheck CBC in am to monitor for anemia. Recheck BMP in am secondary to IVF and medications use. CM working on post discharge rehabilitation option. 04/30/17 Postop day #1, hemoglobin stable at 12.2; continue PT/OT Constipation - suppository ordered; added daily MiraLAX, increase to 2 senna plus BID Oral intake improving - DC IVF.
--- NOTE | 2017-05-01 10:53 | Progress Note ---
- Date 05/01/17 Subjective: Mr. Mcmanus is seen today in follow up for his recent right hip endoprosthesis by Dr. Leggett on 04/29/17 (POD #2). He is seen while resting in bed with his at the bedside. He denies any complaints or concerns including no chest pain, shortness of breath, abdominal pain, nausea or vomiting. He does admit to a chronic dry cough which he states is unchanged from prior to admission. He continues to have a Mccray in place which is actively draining straw yellow urine. He reports that his appetite is not great but he is actively trying to increase his oral intake, specifically fluids. His bowels are moving slowly. Pain is controlled. Anticipate discharge to IRU in near future. Objective Vital signs: Temperature 98.5 F 05/01/17 10:00 Pulse Rate 80 05/01/17 07:53 Respiratory Rate 16 05/01/17 07:51 Blood Pressure 137/60 05/01/17 07:51 Pulse Oximetry 90 05/01/17 07:51 Rhythm: Normal Sinus Rhythm Height/Weight/BMI: Height 6 ft Weight 191 lb 12.835 oz Body Mass Index 24.9 Comments: Resting in bed with at bedside; answers questions slowly at time due to sedation from pain medications. - Constitutional Present: no acute distress, well nourished, well developed, cooperative - Routine HEENT Exam Head: Present: normocephalic, atraumatic Eye: Present: PERRL. Absent: conjunctival icterus ENT: Present: mucous membranes dry - Routine Respiratory Exam Present: decreased breath sounds, crackles (bibasilar). Absent: dyspnea, respiratory distress, wheezes Comments: dry cough on exam; no distress or conversational dyspnea. - Routine Cardiovascular Exam Present: RRR, S1, S2 - Routine Abdominal Exam Present: soft, non tender, distended. Absent: rebound, guarding Comments: hypoactive bowel sounds - Routine Extremities Exam Present: no edema, pulses intact Comments: increased trace swelling noted to right leg as compared to left; vein dilation noted to bilateral hands/arm veins; bandage to right hip clean, dry and intact with ice pack in place. - Routine Back/Spine/Pelvis Exam Back/Spine: Absent: vertebral tenderness Comments: limited ROM of back secondary to right hip pain. - Routine Musculoskeletal Exam Musculoskeletal: Present: limited range of motion (right lower extremity) - Routine Skin Exam Present: dry, warm. Absent: jaundice Comments: afebrile. - Routine Neurological Exam Present: alert, oriented X3, moving all extremities, hearing grossly intact, normal speech. Absent: facial asymmetry - Routine Lymphatic Exam Lymphatic: Absent: lymphedema - Routine Psychiatric Exam Present: cooperative Results - Labs CBC & Chem 7: 05/01/17 04:23 05/01/17 04:23 Assessment and Plan Assessment and Plan: Assessment Subcapital right femoral neck fracture - status post right hip endoprosthesis, per Dr. Leggett on 04/29/17 Mild blood loss anemia Hyponatremia, not present on admission Mechanical fall Chronic afib Anticoagulation with Eliquis HTN HDL BPH Chronic constipation Chronic gait instability Hyponatremia (Not POA) Thrombocytopenia (POA) Plan - 05/01 (Mirakian) POD #2 Overall, Mr. Mcmanus appears to be making slow gains. Continue pain control per ortho and encourage participation in therapy. Anticipate discharge in near future to IRU. Slight decrease in hemoglobin to 11.2. Will continue to monitor. Patient remains asymptomatic. Telemetry reveals sinus rhythm. Continue to monitor closely. Bowel motivation increased to include Miralax daily with senna plus BID. Milk of magnesia PRN. Appetite poor. Continue to encourage oral intake. Weight continues to trend up - 8lbs since admission. Superficial veins to hands /arms noted to be dilated consistent with increased volume status. Agree with Lasix 20mg IV x 1 dose now for fluid motivation. Will given KCl 20 mEq po at dinner as current potassium is low normal at 3.7. Monitor I&O closely as well as daily weight. Pulse ox 90% on room air. Discussed importance of and review technique for incentive spirometry with patient and . Continue to encourage for pulmonary toileting. Mccray catheter remains in place. Will start bladder retraining today. Recheck labs in AM to monitor blood counts, electrolytes and renal function. Mild hyponatremia noted with sodium at 133. Anticipate secondary to fluid overload. Will recheck in AM. DVT Prophylaxis: SCD's, Eliquis Resuscitation Status: Full Code - Time spent with patient Time with patient PN: 35 minutes - Physician Narrative Physician: Austin Mota MD Narrative: Date: 05/01/17 Time: 1145 Have independently interviewed and examined pt. Chart reviewed. Case discussed with Rc Jaime, patient's family, and my PA. Care plan developed with my supervision; agree with above. Doing okay. Pain controlled. Notes he feels pretty tired. Sleeping well at night. No nausea or ab pain. Appetite stable. Did have stool yesterday. Notes cough, but not SOA or congested. Lung: decreased bilaterally, no distress CV: irregular AB: soft, NT, BS present MSE: awake alert appropriate Plan: Lasix x1 today. Will try to remove Mccray this afternoon, after Lasix effect wears off. Continue pain control. Encourage IS. Encourage activities. Recheck lab in am. Medically making progress. Hospital Course Summary Disclaimer: The visit summary below is not to be considered part of the above Progress Note. Hospital Course: Assessment Subcapital right femoral neck fracture Mechanical fall Chronic afib Anticoagulation with Eliquis HTN HDL BPH Chronic constipation Chronic gait instability 04/27/17 Admit to Hospitalist service - anticipate greater than 2 midnights of care needed. Consult Orthopedics - Dr. Leggett. IVFs at 75 cc /hour Regular diet for now - will need to be NPO after midnight tomorrow night Home meds as indicated Hold Eliquis per Ortho's recommendation. SCDs for DVT prevention. UA pending - Mccray placed in ER. Telemetry secondary to afib Increase Amlodipine to 5mg po x one tonight, then resume usual home dose. Continuous pulse oximetry. Supportive care - prn Morphine prn pain, prn Zofran as directed. 04/28/17 Surgery planned for tomorrow to allow for Eliquis to leave system - will hold on Lovenox today as Eliquis still with effect. Consult Dr Jeffrey for Metabolic Bone Evaluation. Check Vitamin D level and CMP. Routine Senna Plus to help bowel motivation. PRN Miralax, MOM, and Dulcolax suppositories. IS to help pulmonary toilet. Consult with PT/OT post op. Medically stable for surgery planned for tomorrow. 04/29/17 OP DAY Underwent Hemiarthroplasty of right hip by Dr Leggett. PT/OT consulted to maximize functional status. Eliquis to restart this evening - continue SCD. Continue low flow NS until oral drive improves. Bowel medications ordered. Encourage IS and pulmonary toilet. Recheck CBC in am to monitor for anemia. Recheck BMP in am secondary to IVF and medications use. CM working on post discharge rehabilitation option. 04/30/17 Postop day #1, hemoglobin stable at 12.2; continue PT/OT Constipation - suppository ordered; added daily MiraLAX, increase to 2 senna plus BID Oral intake improving - DC IVF. Plan - 05/01 (Mirakian) POD #2 Overall, Mr. Mcmanus appears to be making slow gains. Continue pain control per ortho and encourage participation in therapy. Anticipate discharge in near future to IRU. Slight decrease in hemoglobin to 11.2. Will continue to monitor. Patient remains asymptomatic. Telemetry reveals sinus rhythm. Continue to monitor closely. Bowel motivation increased to include Miralax daily with senna plus BID. Milk of magnesia PRN. Appetite poor. Continue to encourage oral intake. Weight continues to trend up - 8lbs since admission. Superficial veins to hands /arms noted to be dilated consistent with increased volume status. Agree with Lasix 20mg IV x 1 dose now for fluid motivation. Will given KCl 20 mEq po at dinner as current potassium is low normal at 3.7. Monitor I&O closely as well as daily weight. Pulse ox 90% on room air. Discussed importance of and review technique for incentive spirometry with patient and . Continue to encourage for pulmonary toileting. Mccray catheter remains in place. Will start bladder retraining today. Recheck labs in AM to monitor blood counts, electrolytes and renal function. Mild hyponatremia noted with sodium at 133. Anticipate secondary to fluid overload. Will recheck in AM.
[2017-05-01 12:39] VITALS: BP 134/67; PULSE 76; RESP 17; O2SAT 92
[2017-05-01] MEDS ORDERED: SALINE 0.65% NASAL SPRAY 44 ML BOTTLE EA NOSTRIL SCH (13:00)
[2017-05-01 13:26] VITALS: TEMP 98.5
--- NOTE | 2017-05-01 14:41 | Discharge Summary ---
Discharge Information Date of admission: 04/27/17 19:38 Anticipated date of discharge: 05/01/17 Attending Physician: Austin Mota MD Consults: Physician Consult: Warren Jeffrey Reason For Exam: Metabolic Bone Disease Physician Consult: Dr Leggett Reason for Exam: Hip fracture PT/OT - Discharge Diagnosis (1) Subcapital fracture of femur Status: Acute Discharge diagnosis Subcapital right femoral neck fracture - status post right hip endoprosthesis, per Dr. Leggett on 04/29/17 Associated conditions and complications Mild blood loss anemia - no transfusion required Hyponatremia, not present on admission Mechanical fall (POA) Chronic afib Anticoagulation with Eliquis HTN HDL BPH Chronic constipation Chronic gait instability Hyponatremia (Not POA) Thrombocytopenia (POA) Radiographic osteopenia - Procedures Procedures: DATE OF SURGERY: 04/27/2017 PREOPERATIVE DIAGNOSIS: Closed displaced right transcervical femoral neck fracture. POSTOPERATIVE DIAGNOSIS: Closed displaced right transcervical femoral neck fracture. PROCEDURE: Right hip endoprosthesis (hemiarthroplasty) SURGEON: Wolfgang Leggett MD PRODUCT TRAINER: Rc Mcclure PA-C - Laboratory Labs: Admit Lab 04/27/17 18:06 WBC 7.8 Hgb 15.1 Hct 44.1 MCV 95.0 Plt Count 126 L Neut % (Auto) 67.0 H Lymph % (Auto) 23.6 [place] % (Auto) 6.9 Eos % (Auto) 1.9 Baso % (Auto) 0.5 Admit Lab 04/27/17 18:06 Sodium 138 Potassium 4.6 Chloride 101 Carbon Dioxide 25 Anion Gap 12 BUN 20.0 Creatinine 1.0 GFR Calculation 71 BUN/Creatinine Ratio 20 Glucose 92 Calculated Osmolality 269 Calcium 9.5 Creatine Kinase 61 Liver enzymes and Vitamin D Level 04/29/17 04/29/17 04:00 04:00 Total Bilirubin 0.90 AST 22 ALT 38 Alkaline Phosphatase 57 Total Protein 6.0 L Albumin 3.4 L Globulin 2.6 Albumin/Globulin Ratio 1.3 25-OH Vitamin D Total 44 05/01/17 04:23 05/01/17 04:23 - Microbiology None - Radiology Radiology: Date of Exam: 04/27/17 PROCEDURE: XR pelvis w/ 1 view RT hip Findings: Subcapital fracture of the right femoral neck, better seen on subsequent CT. There is apex anterior angulation seen on the crosstable lateral view. 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 Bony demineralization limiting detection of nondisplaced fractures. Impression: Closed posttraumatic subcapital right femoral neck fracture. Date of Exam: 04/27/17 PROCEDURE: CT hip RT wo con Findings: Bony demineralization. There is a mildly displaced and angulated fracture of the subcapital right femoral neck with apex anterior angulation. No additional acute fracture or dislocation. Bony demineralization. 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 Soft tissues show no focal hematoma or fluid collection. Impression: Closed posttraumatic right femoral neck fracture. Date of Exam: 04/27/17 PROCEDURE: XR chest 1V Findings: The lungs are stable in appearance without new focal airspace consolidation. Hypoinflation. Right basilar scarring. There is no pleural effusion or pneumothorax. The heart size, pulmonary vascularity and mediastinal contours are unchanged. IMPRESSION: Stable appearance of the chest without acute cardiopulmonary disease. Date of Exam: 04/29/17 PROCEDURE: XR pelvis 1-2V Findings: Postoperative changes of right femoral head replacement are seen. There is expected postoperative subcutaneous gas. No evidence of hardware failure or acute fracture. No retained radiopaque surgical instruments or sponges seen. Impression: New right femoral head prosthesis without evidence of immediate complication. - Pathology None History of Present Illness HPI: This is an 86 y/o w/ AFib on Eliquis, HTN, HLD who presents to ED s/p fall tonight and c/o right hip pain w/ movement. Patient states he was moving a bag w/ his foot and lost his balance and fell onto his right hip. He denies LOC, denies syncope, and did not feel lightheaded or dizzy prior to the fall. Patient denies cp, soa, dyspnea, [place], n/v/d and change in bladder issues. Has had 3 falls over the past year, feels he is slowly getting weaker and occasionally uses a cane for ambulation. In ED, CT showed right hip fx, and ED d/w Dr. Leggett who will see the patient in consult and recommended we stop the patient's Eliquis. Patient given Morphine IV 2mg x one for pain and Zofran 4mg IV x one for nausea. CXR showed no acute process. Patient at this time states he only has pain when he tries to move his right leg. Patient to be admitted to the Hospitalist service and Ortho consulted. For complete details of the H&P refer to that document. Objective Vital signs: Temperature 98.5 F 05/01/17 13:25 Pulse Rate 76 05/01/17 12:35 Respiratory Rate 17 05/01/17 12:35 Blood Pressure 134/67 05/01/17 12:35 Pulse Oximetry 92 05/01/17 12:35 Rhythm: Normal Sinus Rhythm Height/Weight/BMI: Height 1.83 m Weight 87 kg Body Mass Index 24.9 Hospital Course This is a general summary of the patient's hospital course. For more details refer to the complete medical record. Hospital course: Assessment Subcapital right femoral neck fracture Mechanical fall Chronic afib Anticoagulation with Eliquis HTN HDL BPH Chronic constipation Chronic gait instability 04/27/17 Admit to Hospitalist service - anticipate greater than 2 midnights of care needed. Consult Orthopedics - Dr. Leggett. IVFs at 75 cc /hour Regular diet for now - will need to be NPO after midnight tomorrow night Home meds as indicated Hold Eliquis per Ortho's recommendation. SCDs for DVT prevention. UA pending - Mccray placed in ER. Telemetry secondary to afib Increase Amlodipine to 5mg po x one tonight, then resume usual home dose. Continuous pulse oximetry. Supportive care - prn Morphine prn pain, prn Zofran as directed. 04/28/17 Surgery planned for tomorrow to allow for Eliquis to leave system - will hold on Lovenox today as Eliquis still with effect. Consult Dr Jeffrey for Metabolic Bone Evaluation. Check Vitamin D level and CMP. Routine Senna Plus to help bowel motivation. PRN Miralax, MOM, and Dulcolax suppositories. IS to help pulmonary toilet. Consult with PT/OT post op. Medically stable for surgery planned for tomorrow. 04/29/17 OP DAY Underwent Hemiarthroplasty of right hip by Dr Leggett. PT/OT consulted to maximize functional status. Eliquis to restart this evening - continue SCD. Continue low flow NS until oral drive improves. Bowel medications ordered. Encourage IS and pulmonary toilet. Recheck CBC in am to monitor for anemia. Recheck BMP in am secondary to IVF and medications use. CM working on post discharge rehabilitation option. 04/30/17 Postop day #1, hemoglobin stable at 12.2; continue PT/OT Constipation - suppository ordered; added daily MiraLAX, increase to 2 senna plus BID Oral intake improving - DC IVF. Plan - 05/01 ([facility]) POD #2 Overall, Mr. Mcmanus appears to be making slow gains. Continue pain control per ortho and encourage participation in therapy. Anticipate discharge in near future to IRU. Slight decrease in hemoglobin to 11.2. Will continue to monitor. Patient remains asymptomatic. Telemetry reveals sinus rhythm. Continue to monitor closely. Bowel motivation increased to include Miralax daily with senna plus BID. Milk of magnesia PRN. Weight continues to trend up - 8lbs since admission. Superficial veins to hands /arms noted to be dilated consistent with increased volume status. Agree with Lasix 20mg IV x 1 dose now for fluid motivation. Will given KCl 20 mEq po at dinner as current potassium is low normal at 3.7. Monitor I&O closely as well as daily weight. Pulse ox 90% on room air. Discussed importance of and review technique for incentive spirometry with patient and . Continue to encourage for pulmonary toileting. Mccray catheter remains in place. Bladder retraining in progress. Anticipate discontinuation of Mccray later today after Lasix effect wears off. Mild hyponatremia noted with sodium at 133. Anticipate secondary to mild fluid overload. Will recheck in AM. Patient has been accepted to IRU for restorative therapy following his hip fracture. Medically stable. Will discharger to IRU for continuation of care. Mccray to be removed. Will preform post void bladder scans. Continue with treatments initiated on acute. Patient will need to establish PCP care by discharge from IRU. See orders for details. Time spent with patient: discharge greater than 30 minutes DVT Prophylaxis: SCD's, Eliquis Discharge Plan - Discharge Disposition Discharge Date: 05/01/17 Disposition: 60 To [facility] IN[facility] *Condition: Improved Reason For Visit (Visit label in EMR): Right hip fracture - Discharge Medications *Discharge Medications: New Acetaminophen [Tylenol] 325 mg PO Q5H PRN tab PRN Reason: Discomfort Bisacodyl Supp [Dulcolax] 10 mg RECTALLY DAILY PRN suppositor PRN Reason: Constipation Calcium 600 + D [Caltrate + D] 1 tab PO BID tab Hydrocodone/APAP 7.5/325 [Edison 7.5/325] 1 tab PO Q6H PRN tab PRN Reason: Pain Milk of Magnesia [Mom] 30 ml PO DAILY PRN udc PRN Reason: Constipation Nozin Nasal Swab 1 each PREETHI Q8H appl PEG 3350 17gm PACKET [Miralax] 17 gm PO DAILY packet Sodium Chloride [Deep Sea] 2 spray EA NOSTRIL QID spray Senna + Docusate [Senna Plus Tablet] 2 tab PO BID tab Continue Amiodarone [Pacerone] 200 mg PO DAILY Amlodipine [Norvasc] 2.5 mg PO HS Hedley-3/Dha/Epa/Fish Oil [Fish Oil 1,000 mg Softgel] 1,000 mg PO BID Olmesartan Medoxomil 20 mg PO DAILY Cholecalciferol [Vit. D-3] 1,000 unit PO BID #0 Apixaban [Eliquis] 5 mg PO BID #0 Cyanocobalamin (Vitamin B-12) [Vitamin B-12] 1,000 mcg PO DAILY - Discharge Packet/Instructions *Diet: Regular *Activity: Weight bearing as tolerated, walker for assistance *Pain Management/Treatment: Edison and Tylenol as needed. *Wound Care: Keep wound covered and dry Additional Instructions: Use IS every hour while awake. *Expected Signs/Symptoms: Improvement of functional status. Decrease hip pain. *Notify Physician if: Temp >100.4. Pain not controlled well. Nausea. Difficulty urinating. *During Business Hours Contact: Nursing staff at IRU *After Business Hours Contact: Nursing staff at IRU *Pending Lab/Results: No Pending Lab - IRU/GEN Discharge/Transfer - Referrals/Follow Up *Referrals/Follow Up: Warren Jeffrey MD [Physician] - 06/29/17 10:00 am - Patient Handouts Patient Handouts: [facility] Postop Instructions Physician Narrative - Narrative Physician: Austin Mota MD Attestation Narrative: Date: 05/01/17 Time: 1436 I have independently interviewed and examined patient prior to discharge. See my progress note from today for details. Medically stable for discharge to IRU to continue restorative care.
== END 2017-05-01 14:58 | DRG 470 ==
LOC: ED 17:52 → SRG 19:38 → SUATTDRO 19:38 → SRG 20:10
PROVIDERS: ADMIT Internal Medicine; ATTEND Hospitalist

== ENCOUNTER 2017-05-01 15:03 | Inpatient (IN) ==
[2017-05-01 15:42] VITALS: BMI 26.1
[2017-05-01] MEDS ORDERED: FALL RISK - PHARMACY CONSULT MC ONE (16:17)
[2017-05-01] MEDS ORDERED: HYDROCODONE/APAP 7.5 MG/325 MG TABLET PO PRN (16:17)
[2017-05-01] MEDS ORDERED: ONDANSETRON 4 MG TABLET PO PRN (16:17)
[2017-05-01] MEDS ORDERED: FALL RISK - PHARMACY CONSULT XX ONE (16:17)
[2017-05-01] MEDS ORDERED: BISACODYL 10 MG SUPPOSITORY RECTALLY PRN (16:17)
[2017-05-01] MEDS: SALINE 0.65% NASAL SPRAY 44 ML BOTTLE EA NOSTRIL SCH ×2 (17:55→20:35)
[2017-05-01] MEDS: AMLODIPINE 2.5 MG TABLET PO SCH (20:34)
[2017-05-01] MEDS: APIXABAN 5 MG TABLET PO SCH (20:35)
[2017-05-01] MEDS: CALCIUM 600 + VIT D 400 TABLET PO SCH (20:35)
[2017-05-01] MEDS: NOZIN NASAL SWAB NAS SCH (21:13)
[2017-05-01] MEDS: SENNA + DOCUSATE TABLET PO SCH (21:13)
[2017-05-02] MEDS: NOZIN NASAL SWAB NAS SCH ×5 (00:14→23:51)
[2017-05-02] MEDS: CALCIUM 600 + VIT D 400 TABLET PO SCH ×2 (08:56→20:45)
[2017-05-02] MEDS: AMIODARONE 200 MG TABLET PO SCH (08:57)
[2017-05-02] MEDS: CYANOCOBALAMIN (B-12) 500mcg TABLET PO SCH (08:57)
[2017-05-02] MEDS: APIXABAN 5 MG TABLET PO SCH ×2 (08:57→20:45)
[2017-05-02] MEDS: POLYETHYL GLYCOL 3350 17gm PACKET PO SCH (08:58)
[2017-05-02] MEDS: SALINE 0.65% NASAL SPRAY 44 ML BOTTLE EA NOSTRIL SCH ×4 (09:01→20:45)
[2017-05-02] MEDS: SENNA + DOCUSATE TABLET PO SCH ×2 (09:01→20:45)
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
--- NOTE | 2017-05-02 11:40 | IRU 24Hr Post Admit Eval ---
24 Hr Post Admission Physical - Relevant Changes Relevant Changes: No Reviewed: I have reviewed the patient's information and concur with the finding and results of the pre-admission screen. Certification: I certify the patient for rehabilitation. - Patient Condition (1) Status post-operative repair of closed fracture of right hip Status: Acute Code(s): Z98.890 - Other specified postprocedural states; Z87.81 - Personal history of (healed) traumatic fracture Classification: Present on IRF Admission, IRF Tx That Should Address Diagnosis, Diagnosis Requiring Medical Follow Up (2) Atrial fibrillation Status: Chronic Qualifiers: Atrial fibrillation type: paroxysmal Qualified Code(s): I48.0 - Paroxysmal atrial fibrillation Code(s): I48.91 - Unspecified atrial fibrillation Classification: Present on IRF Admission, IRF Tx That Should Address Diagnosis, Diagnosis Requiring Medical Follow Up (3) Thrombocytopenia Status: Acute Code(s): D69.6 - Thrombocytopenia, unspecified Classification: Present on IRF Admission, IRF Tx That Should Address Diagnosis, Diagnosis Requiring Medical Follow Up (4) Benign essential hypertension Status: Chronic Code(s): I10 - Essential (primary) hypertension Classification: Present on IRF Admission, IRF Tx That Should Address Diagnosis, Diagnosis Requiring Medical Follow Up (5) Slow transit constipation Status: Chronic Code(s): K59.01 - Slow transit constipation Classification: Present on IRF Admission, IRF Tx That Should Address Diagnosis, Diagnosis Requiring Medical Follow Up - Prior Functional Status Lives With: Spouse Residence Type: Apartment/Private Home Assitive Devices: Straight Cane Prior Functional Status: Indep. at home or school, Indep. w/ all home ADL - Current Functional Status Current Level of Function: Current level of functioning: He is supervision level for grooming, total assistance is required for lower body dressing and toileting. He requires maximum assistance for bed/chair/wheelchair transfers, total assistance for toilet transfers and walking. Currently he requires a rolling walker and is able to walk only 12 feet with total assistance. Failed Alternative Therapy: Arrived from Acute Care Patient Requirements: The patient requires oversight by rehabilitation physician to manage their rehabilitation treatment plan and multidisciplinary approach to care that can only be provided in an IRF and requires a multidisciplinary approach to care, provided by professional PTs, OTs, STs, dieticians, RTs, rehabilitation nurses and is not available in lesser levels of care. Limitations Req: Mobility Impairment, ADL Impairment Physical Therapy Minutes: 90 Occupational Therapy Minutes: 90 Therapy: The patient is to receive therapy at least 5 days a week. ROM Deficit: Right Lower Extremity - Complications/Comorbidities Impact on Functional Outcomes: Because of frequent falls and imbalance this may negatively impact his functional outcome. Barriers to Discharge: Weakness, Balance, Endurance, Comprehension - Plan to Avoid Complications Plan to Avoid Complications: The patient cannot receive this care in a lesser intensive setting such as Shelter or Outpatient Therapy due to the patient requiring the following : He requires a multidisciplinary approach in view of his medical problems which include atrial fibrillation and risk of rapid ventricular response, use of Eliquis and risk of bleeding as well as poor wound healing, low platelet count which increases his risk of bleeding. He requires 24 rehabilitation nursing to monitor his cardiac status, wound healing and to reduce his fall risk. Finally, he requires medical supervision for these problems. .
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
--- NOTE | 2017-05-02 14:09 | Orthopedic Progress Note ---
Date: Date: 05/02/17 Time: 1406 Subjective/Severity of Illness: Remberto is doing well. He has no complaints and states his pain is controlled. His creatine has normalized. He has been working hard on mobilization with the IRU staff. Orthopedic Objective PO Vital signs: Temperature 98.1 F 05/02/17 08:00 Pulse Rate 70 05/02/17 08:00 Respiratory Rate 14 05/02/17 08:00 Blood Pressure 133/65 05/02/17 08:00 Pulse Oximetry 93 05/02/17 08:00 Height and Weight: Height 6 ft Weight 192 lb 10.944 oz Body Mass Index 26.1 - Constitutional General Appearance: Present: alert, orientated x3, no acute distress - Respiratory Exam Present: non-labored - Cardiovascular Exam Present: pedal pulses intact Capillary Refill: < 2-3 Seconds - Abdominal Exam Absent: tenderness - Extremities Exam Extremities: Present: pulses intact - Hip Exam Hip Exam: Present: decreased ROM (felxion), decreased ROM (rotation). Absent: unequal leg length - Surgical Site Incision: dressing intact - Integumentary Exam Present: pink, warm, dry - Lymphatic Lymphatic: Absent: lymphedema - Neurological Exam Present: intact to light touch - Psychiatric Exam Present: normal affect - Labs Result Diagrams: 05/02/17 04:44 05/02/17 04:44 Abnormal lab results 05/02/17 05/02/17 Range/Units 04:44 04:44 RBC 3.34 L (4.50-5.90) M/MM3 Hgb 10.8 L (13.5-17.5) GM/DL Hct 31.6 L (41-53) % Plt Count 115 L (130-400) T/MM3 Neut % (Auto) 76.6 H (33-66) % Lymph % (Auto) 12.1 L (23-45) % [place] % (Auto) 9.5 H (0-9.0) % Sodium 133 L (134-144) MEQ/L BUN 21.0 H (9-20) MG/DL Calculated Osmolality 259 L (261-280) MOSM/KG H & H 05/02/17 Range/Units 04:44 Hgb 10.8 L (13.5-17.5) GM/DL Hct 31.6 L (41-53) % Orthopedic Assessment and Plan - Anticoagulation Therapy Anticoagulation: other (resume pre op Eliquis) Hospital Course Summary Disclaimer: The visit summary below is not to be considered part of the above Progress Note.
[2017-05-02] MEDS: AMLODIPINE 2.5 MG TABLET PO SCH (20:45)
[2017-05-03] MEDS: NOZIN NASAL SWAB NAS SCH ×3 (06:12→20:24)
[2017-05-03] MEDS: AMIODARONE 200 MG TABLET PO SCH (08:36)
[2017-05-03] MEDS: SENNA + DOCUSATE TABLET PO SCH ×2 (08:36→20:25)
[2017-05-03] MEDS: POLYETHYL GLYCOL 3350 17gm PACKET PO SCH (08:36)
[2017-05-03] MEDS: SALINE 0.65% NASAL SPRAY 44 ML BOTTLE EA NOSTRIL SCH ×4 (08:37→20:25)
[2017-05-03] MEDS: CALCIUM 600 + VIT D 400 TABLET PO SCH ×2 (08:37→20:25)
[2017-05-03] MEDS: APIXABAN 5 MG TABLET PO SCH ×2 (08:38→20:25)
[2017-05-03] MEDS: CYANOCOBALAMIN (B-12) 500mcg TABLET PO SCH (08:38)
--- NOTE | 2017-05-03 11:15 | IRU Progress Note ---
- Subjective/Serverity of Illness Date: 05/03/17 Mr. Mcmanus was evaluated in his room. He does have a dry cough which he states is chronic. No sputum is produced. He denies actual shortness of breath. He does have some edema. He states that the pain is adequately controlled. He reports that he was up about 5 or 6 times last night to use the bathroom. He does have history of benign prostatic hypertrophy. He denies any dysuria nor any other evidence of infection at present. He reports that the pain is adequately controlled and denies any dyspnea. He is just starting with therapy and so we will make further comments as time goes on. Update on medical problems we are actively monitoring or managin. Atrial fibrillation on Eliquis: Patient has no evidence of neurologic decline nor evidence of bleeding. He remains on Eliquis and tolerating it well. His rhythm actually sounds fairly regular at present. 2. Hypertension: His blood pressure is elevated at times above 150. No doubt this is related to discomfort. We will monitor at present and adjust medicines if needed. 3. Multiple falls at home: He is getting started with therapy. 4. Thrombocytopenia: No evidence of bleeding is noted. We will repeat the platelet count tomorrow. Exam Vital Signs: Temperature 98.1 F 05/03/17 08:00 Pulse Rate 76 05/03/17 08:00 Respiratory Rate 22 05/03/17 08:00 Blood Pressure 154/69 H 05/03/17 08:00 Pulse Oximetry 91 05/03/17 08:00 Height/Weight/BMI: Height 1.83 m Weight 86.2 kg Body Mass Index 26.1 - Constitutional Present: no acute distress, well nourished, well developed, cooperative Comments: Seems to be reasonably well oriented and very cooperative. He is verbal. - Routine HEENT Exam Head: Present: normocephalic, atraumatic Eye: Present: EOMI ENT: Present: mucous membranes moist, dentition normal - Routine Neck Exam Present: supple - Routine Respiratory Exam Present: CTA bilaterally. Absent: dyspnea, decreased breath sounds, wheezes, crackles Comments: It is noted he does have a dry cough chronically. Lungs are clear however. - Routine Cardiovascular Exam Present: RRR, S1, S2, no murmur. Absent: murmur, S3, S4 Comments: His rhythm sounds regular at present. It is not clear if he has paroxysmal atrial fibrillation or simply a controlled rate. - Routine Abdominal Exam Present: soft, normoactive bowel sounds, non distended. Absent: tenderness - Routine Extremities Exam Present: edema (does have trace to 1+ edema bilaterally.), normal capillary refill - Routine Back/Spine/Pelvis Exam Back/Spine: Present: full ROM - Routine Skin Exam Present: dry, warm - Routine Neurological Exam Present: alert, oriented X3, CN II-XII intact. Absent: altered mental status, facial asymmetry, tremors - Routine Psychiatric Exam Present: normal affect, cooperative Results IRU - Labs Labs: Have reviewed other providers notes as well as laboratory and vital signs. IRU A/P (1) Status post-operative repair of closed fracture of right hip Current visit: Yes Status: Acute Patient states that his pain is adequately controlled. He is cooperative and just getting started with therapy. (2) Atrial fibrillation Qualifiers: Atrial fibrillation type: paroxysmal Qualified Code(s): I48.0 - Paroxysmal atrial fibrillation Current visit: Yes Status: Chronic His rhythm sounds regular at the present time. He is tolerating Eliquis without evidence of bleeding. No neurologic complications have been noted. Denies dyspnea or chest pain. (3) Thrombocytopenia Current visit: Yes Status: Acute Whether callus 115,000. We will recheck this tomorrow. No evidence of active bleeding. (4) Benign essential hypertension Current visit: Yes Status: Chronic His blood pressures remain a bit elevated at over 150 at times. No doubt this is related to pain at times. We'll monitor this and adjust medicines as needed. (5) Slow transit constipation Current visit: Yes Status: Chronic DVT Prophylaxis: Eliquis Resuscitation Status: Full Code - Course Hospital Course: Sonu Lr MD: 05/03/17 11:17 He is getting started with therapy. Seems to be very cooperative. Blood pressures a little high at 150. We will repeat the platelet count tomorrow. - Interventions to Obtain Goals PT Treatment Plan: Functional Activities, Gait Training, Patient/Family Education, Therapeutic Exercise OT Treatment Plan: ADL (Basic Care), Balance Training, IADL, Ther. Exercise for ADL Goals Progress/Modifications: Time spent with patient and on floor reviewing data and documentin min Barriers to dismissal: Balance, endurance, pain Medical decision-making: At the present time he seems to be settling into rehabilitation well. He states that his pain is adequately controlled. He denies any chest pain or shortness of breath. He is tolerating therapy well. It is noted that his platelet count was low upon admission. We'll repeat that tomorrow. He does not have any evidence of active bleeding. Blood pressures however are running a bit high at times over 150. This will be monitored and medications adjusted if needed.
--- NOTE | 2017-05-03 11:20 | IRU Plan of Care ---
[facility] Overall Plan of Care - Date Date: 05/03/17 - Relevant Changes Relevant Changes: No Reviewed: I have reviewed the patient's information and concur with the finding and results of the pre-admission screen. Certification: I certify the patient for rehabilitation. - Medical Prognosis Medical Prognosis: Good Vital Signs: Last Vital Signs Temp 98.1 F 05/03/17 08:00 Pulse 76 05/03/17 08:00 Resp 22 05/03/17 08:00 BP 154/69 H 05/03/17 08:00 Pulse Ox 91 05/03/17 08:00 - Anticipated Interventions Anticipated Interventions: The patient requires inpatient IRF care for PT and OT for residuals remaining from hip fracture resulting in muscular weakness and strength deficits. ROM Deficit: Right Lower Extremity Strength Deficits: Right Lower Extremity - Current Functional Status Failed Alternative Therapy: Arrived from Acute Care Patient Requires: The patient requires oversight by rehabilitation physician to manage their rehabilitation treatment plan and multidisciplinary approach to care that can only be provided in an IRF and requires a multidisciplinary approach to care, provided by professional PTs, OTs, STs, rehabilitation nurses, and may require STs, dieticians, and RTS. This is not available in lesser levels of care. Physical Therapy Minutes: 90 Occupational Therapy Minutes: 90 Therapy: The patient is to receive therapy at least 5 days a week. - Anticipated LOS/Outcomes Anticipated Functional Outcome: Expected functional improvements include: -- Modified independant to independant ambulation with or without assistive device -- Modified independant to independant ADL's with or without assistive device -- Return to pre-morbid level of mobility -- Maximize level of mobility and ADL's to decrease burden on any caregiver involved with this patient's care Anticipated Length of Stay (days): 7 Anticipated DC Destination: Home, Self Care, Home Health Service Home Safety Plan: The patient will be provided with the development of a Home Safety Plan for return to a home or home-like environment and and to ensure safety post discharge. - Plan to Avoid Complications Barriers to Attaining Goals: Weakness, Balance, Endurance, Pain Control Plan to Avoid Complications: The patient cannot receive this care in a lesser intensive setting such as Care Home or Outpatient Therapy due to the patient requiring the following : The patient requires close monitoring by 24 rehabilitation nursing staff to reduce fall risk, manage his pain and to ensure no evidence of wound infection. He has been restarted on his Eliquis and he is being monitored for evidence of bleeding or complications from his atrial fibrillation. He is best served by a multidisciplinary approach with PT and OT in addition to medical supervision because of these medical problems.
[2017-05-03] MEDS: ACETAMINOPHEN 325 MG TABLET PO PRN (14:41)
[2017-05-03] MEDS: AMLODIPINE 2.5 MG TABLET PO SCH (20:26)
[2017-05-04] MEDS: CYANOCOBALAMIN (B-12) 500mcg TABLET PO SCH (08:57)
[2017-05-04] MEDS: NOZIN NASAL SWAB NAS SCH ×3 (08:57→13:27)
[2017-05-04] MEDS: AMIODARONE 200 MG TABLET PO SCH (08:58)
[2017-05-04] MEDS: CALCIUM 600 + VIT D 400 TABLET PO SCH ×2 (08:58→20:48)
[2017-05-04] MEDS: SENNA + DOCUSATE TABLET PO SCH ×2 (08:58→20:48)
[2017-05-04] MEDS: APIXABAN 5 MG TABLET PO SCH ×2 (08:58→20:48)
[2017-05-04] MEDS: POLYETHYL GLYCOL 3350 17gm PACKET PO SCH (08:59)
[2017-05-04] MEDS: SALINE 0.65% NASAL SPRAY 44 ML BOTTLE EA NOSTRIL SCH ×4 (08:59→21:01)
[2017-05-04] MEDS: ACETAMINOPHEN 325 MG TABLET PO PRN ×2 (09:00→20:47)
--- NOTE | 2017-05-04 10:37 | IRU Progress Note ---
- Subjective/Serverity of Illness Date: 05/04/17 Mr. Mcmanus was evaluated in his room today. He reports easy fatigability. He reports some dyspnea with exertion with therapy. Overall however he reports he is tolerating therapy adequately. He denies any chest pains. He states that the pain is a bit worse because he has been up on the leg more. Yesterday he reported increased difficulty urinating. He does have history of benign prostatic hypertrophy. It is not clear why he is not on medication for this at present. I will discuss with the patient and the hospitalist service. He was up quite a bit at night urinating. A urinalysis was obtained which is negative for acute infection. Brief therapy update: For physical therapy requires maximum assistance for bed/ chair/wheelchair transfers. He is able to ambulate 180 feet with contact guard assistance. For occupational therapy he is standby assist for upper body dressing and requires minimum assistance for lower body dressing (yesterday he required maximum assistance for lower body dressing). It appears as though he is making progress with therapy. Therapy indicates that he is cooperative and expresses understanding of instructions. Update on medical problems we are actively monitoring or managin. Atrial fibrillation on Eliquis: Neurologically he is stable. No evidence of active bleeding. 2. Hypertension: Blood pressures remain elevated at times around 150. 3. Multiple falls at home: He is improving with therapy. 4. Thrombocytopenia: Repeat platelet count is now normal at 141,000. No evidence of bleeding. 5. Difficulty urinating: His symptoms of difficulty passing his urine appear to be consistent with benign prostatic hypertrophy. No evidence of infection on urinalysis. Exam Vital Signs: Temperature 98.0 F 05/04/17 08:00 Pulse Rate 68 05/04/17 08:00 Respiratory Rate 14 05/04/17 08:00 Blood Pressure 152/74 H 05/04/17 08:00 Pulse Oximetry 93 05/04/17 08:00 Height/Weight/BMI: Height 1.83 m Weight 86.2 kg Body Mass Index 26.1 - Constitutional Present: no acute distress, well nourished, well developed, average body habitus , cooperative - Routine HEENT Exam Eye: Present: EOMI ENT: Present: mucous membranes moist, dentition normal - Routine Neck Exam Present: supple - Routine Respiratory Exam Present: dyspnea, CTA bilaterally. Absent: wheezes - Routine Cardiovascular Exam Present: RRR, S1, S2. Absent: murmur Comments: Once again it is known that he has a history of atrial fibrillation. His rhythm sounds regular today again. - Routine Abdominal Exam Present: soft, normoactive bowel sounds, non distended. Absent: tenderness - Routine Extremities Exam Present: no edema - Routine Skin Exam Present: dry, warm, wounds. Absent: erythema Comments: I inspected the right hip wound area. Dressing remains in place and intact. No evidence of drainage. There is no surrounding erythema. - Routine Neurological Exam Present: alert, oriented X3, CN II-XII intact Sometimes his responses are a bit slow. However he appears to be adequately oriented. He is alert. - Routine Psychiatric Exam Present: normal affect, cooperative Results IRU - Labs Labs: CBC and platelet count. IRU A/P (1) Status post-operative repair of closed fracture of right hip Current visit: Yes Status: Acute Inspection of the right hip shows no evidence of inflammation or drainage. The amount of pain he is experiencing is what we would anticipate at this point. He is cooperative with therapy and making progress as identified above. (2) Thrombocytopenia Current visit: Yes Status: Resolved His previously identified thrombocytopenia appears to have resolved. Likely it was related to consumption from the fracture. (3) Atrial fibrillation Qualifiers: Atrial fibrillation type: paroxysmal Qualified Code(s): I48.0 - Paroxysmal atrial fibrillation Current visit: Yes Status: Chronic He sounds as though he is in a regular rhythm. He remains on Eliquis without evidence of bleeding. No neurologic changes are noted and he denies any palpitations. He does report some dyspnea with activity. (4) Benign essential hypertension Current visit: Yes Status: Chronic (5) Benign prostatic hyperplasia with lower urinary tract symptoms Qualifiers: Lower urinary tract symptom detail: nocturia Qualified Code(s): N40.1 - Benign prostatic hyperplasia with lower urinary tract symptoms; R35.1 - Nocturia Current visit: Yes Status: Chronic Urinalysis reviewed and negative for infection. I will check to see if he has been on medications in the past for this or not. DVT Prophylaxis: Eliquis Resuscitation Status: Full Code - Course Hospital Course: Sonu Lr MD: 05/03/17 11:17 He is getting started with therapy. Seems to be very cooperative. Blood pressures a little high at 150. We will repeat the platelet count tomorrow. 05/04/17 10:39 Pain starting to increase a bit with increased activity. He is making progress with therapy. Right hip wound is unremarkable. - Interventions to Obtain Goals PT Treatment Plan: Functional Activities, Gait Training, Patient/Family Education, Therapeutic Exercise OT Treatment Plan: ADL (Basic Care), Balance Training, IADL, Ther. Exercise for ADL Goals Progress/Modifications: Time spent with patient and on floor reviewing data and documentin min Barriers to dismissal: cognition, endurance, balance Medical decision-making: He does have symptoms of benign prostatic hypertrophy. The urinalysis was negative for evidence of infection. He states that he is able to urinate a bit better this morning. It is not clear why he is not on medication for this. I will check with the patient and the hospitalist service and begin something if that is appropriate. At present we will not pursue further evaluation. He is making progress with therapy at the present time. The wound looks fine. He is medically stable to continue therapy.
--- NOTE | 2017-05-04 16:08 | Progress Note ---
- Date 05/04/17 Subjective: Mr. Mcmanus is doing well. He has a little bit frustrated from seeing slow progress. He would like to improve at a quicker pace. His son feels like that he is more limited by poor stamina versus hip pain. Mr. Mcmanus denies any shortness of breath or dizziness. He denies any abdominal pain or nausea. His appetite is improving. He is having more regular bowel movements, but notes a history of constipation. His feet are swollen, which is unusual for him. Objective Vital signs: Temperature 98.0 F 05/04/17 08:00 Pulse Rate 68 05/04/17 08:00 Respiratory Rate 14 05/04/17 08:00 Blood Pressure 152/74 H 05/04/17 08:00 Pulse Oximetry 93 05/04/17 08:00 Height/Weight/BMI: Height 1.83 m Weight 86.2 kg Body Mass Index 26.1 - Constitutional Present: no acute distress, well nourished, well developed - Routine HEENT Exam Head: Present: normocephalic Eye: Absent: conjunctival icterus, scleral injection - Routine Respiratory Exam Present: CTA bilaterally - Routine Cardiovascular Exam Present: RRR, S1, S2 - Routine Abdominal Exam Present: soft, normoactive bowel sounds, non distended, non tender - Routine Extremities Exam Present: edema (bilateral pedal and lower extremity edema, right greater than left) - Routine Skin Exam Present: intact, dry, warm - Routine Neurological Exam Present: alert, oriented X3, normal speech - Routine Psychiatric Exam Present: normal affect, normal thought process, cooperative Results - Labs CBC & Chem 7: 05/04/17 04:31 05/03/17 05:15 Assessment and Plan Assessment and Plan: New Conditions Since Acute Admission on 04/27/17: Hyponatremia. Acute blood loss anemia - no transfusion required, following right hip endoprosthesis, 04/2017. Thrombocytopenia. S/P right hip endoprosthesis - Dr. Leggett, 04/2017. Generalized debility and gait instability - acute on chronic. Osteopenia. Chronic Conditions Present Prior to Acute Admission on 04/27/17: Chronic a-fib with chronic anticoagulation on Eliquis. Hypertension. Hyperlipidemia. Chronic constipation. BPH. 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 Chronic thrombocytopenia. Plan Medically stable. Hemoglobin has remained stable at 10.1. Sodium is still slightly low at 132, continue to monitor. Bilateral pedal edema. Encouraged patient to elevate legs while at rest. We'll also order ERNESTO rodriguez. If this doesn't improve, could consider mild diuresis. Constipation has resolved. Blood pressure has been moderately elevated, consider increasing Norvasc if continues. DVT Prophylaxis: Troy Echeverria Resuscitation Status: Full Code - Physician Narrative Narrative: Date: 05/04/17 Time: 1601 Hospital Course Summary Disclaimer: The visit summary below is not to be considered part of the above Progress Note.
--- NOTE | 2017-05-04 17:08 | Wound Care Progress Note ---
Wound Management - Patient Status Premedicated Prior to Dressing Change: No - Wound Left Posterior Heel Wound Type: Pressure Injury Wound Present on Admission?: No (Unsure) Wound Staging: Unstageable Length: 6 Width: 5 Depth: 0 Wound Bed Appearance: [place] Tunneling: No Undermining: No Drainage Description: none at this time Drainage Amount: None Drainage Odor: No Odor Dressing Status: Dry & Intact Primary Dressing: Foam Dressing (Requested pt to keep feet elevated when in bed 3+ pitting edema of feet. Also have RN place Gustavo boots while pt is in bed.) Dressing Change Date: 05/04/17 Dressing Change Time: 17:07 Dressing Change Patient Tolerance: Tolerated Well Right Posterior Heel Wound Type: Pressure Injury Wound Present on Admission?: No (Unsure) Wound Staging: Unstageable Length: 4 Width: 4.5 Depth: 0 Wound Bed Appearance: [place] Tunneling: No Undermining: No Drainage Description: none at this time Drainage Amount: None Drainage Odor: No Odor Dressing Status: Dry & Intact Primary Dressing: Foam Dressing (Pt instructed to keep feet elevated when in chair and RN informed to place Gustavo boots while pt in bed.) Dressing Change Date: 05/04/17 (n) Dressing Change Time: 17:09 Dressing Change Patient Tolerance: Tolerated Well Right Buttock Wound Type: Abrasion Wound Present on Admission?: Yes Length: 0.2 Width: 0.2 Depth: 0.1 Wound Bed Appearance: Beefy Red [place] Wound Appearance: [place] Tunneling: No Undermining: No Drainage Description: Serous Drainage Amount: Scant Drainage Odor: No Odor Dressing Status: Changed Primary Dressing: Foam Dressing Dressing Change Date: 05/04/17 Dressing Change Time: 17:10 Dressing Change Patient Tolerance: Tolerated Well Left Buttock Wound Type: Abrasion Wound Present on Admission?: Yes Length: 0.2 Width: 0.3 Depth: 0.1 Wound Bed Appearance: Beefy Red Tunneling: No Undermining: No Drainage Description: Serous Drainage Amount: Scant Drainage Odor: No Odor Dressing Status: Changed Primary Dressing: Foam Dressing Dressing Change Date: 05/04/17 Dressing Change Time: 17:11 Dressing Change Patient Tolerance: Tolerated Well
[2017-05-04] MEDS: TERFINAFINE 1% CREAM 12 G TUBE TOP SCH (18:22)
[2017-05-04] MEDS: AMLODIPINE 2.5 MG TABLET PO SCH (20:48)
[2017-05-05] MEDS: NOZIN NASAL SWAB NAS SCH ×4 (04:47→22:29)
[2017-05-05] MEDS: ACETAMINOPHEN 325 MG TABLET PO PRN (06:48)
[2017-05-05] MEDS: APIXABAN 5 MG TABLET PO SCH ×2 (08:44→20:38)
[2017-05-05] MEDS: CYANOCOBALAMIN (B-12) 500mcg TABLET PO SCH (08:44)
[2017-05-05] MEDS: POLYETHYL GLYCOL 3350 17gm PACKET PO SCH (08:45)
[2017-05-05] MEDS: SENNA + DOCUSATE TABLET PO SCH ×2 (08:45→20:39)
[2017-05-05] MEDS: SALINE 0.65% NASAL SPRAY 44 ML BOTTLE EA NOSTRIL SCH ×4 (08:45→20:38)
[2017-05-05] MEDS: CALCIUM 600 + VIT D 400 TABLET PO SCH ×2 (08:45→20:38)
[2017-05-05] MEDS: AMIODARONE 200 MG TABLET PO SCH (08:45)
[2017-05-05] MEDS: TERFINAFINE 1% CREAM 12 G TUBE TOP SCH (10:43)
[2017-05-05] MEDS: AMLODIPINE 2.5 MG TABLET PO SCH (20:37)
[2017-05-06] MEDS: NOZIN NASAL SWAB NAS SCH ×3 (06:46→21:02)
[2017-05-06] MEDS: APIXABAN 5 MG TABLET PO SCH ×2 (08:17→21:02)
[2017-05-06] MEDS: CALCIUM 600 + VIT D 400 TABLET PO SCH ×2 (08:17→21:02)
[2017-05-06] MEDS: CYANOCOBALAMIN (B-12) 500mcg TABLET PO SCH (08:18)
[2017-05-06] MEDS: POLYETHYL GLYCOL 3350 17gm PACKET PO SCH (08:19)
[2017-05-06] MEDS: SENNA + DOCUSATE TABLET PO SCH ×2 (08:19→21:03)
[2017-05-06] MEDS: TERFINAFINE 1% CREAM 12 G TUBE TOP SCH (08:20)
[2017-05-06] MEDS: SALINE 0.65% NASAL SPRAY 44 ML BOTTLE EA NOSTRIL SCH ×4 (08:20→21:02)
[2017-05-06] MEDS: AMIODARONE 200 MG TABLET PO SCH (08:30)
[2017-05-06] MEDS: ACETAMINOPHEN 325 MG TABLET PO PRN (08:30)
--- NOTE | 2017-05-06 10:22 | IRU Progress Note ---
- Subjective/Serverity of Illness Date: 05/06/17 Mr. cMmanus was evaluated in his room on the inpatient rehabilitation unit. He is cooperative and awake and alert. However he continues to complain of passing small amounts of urine throughout the night. Has urinary frequency but it is not clear if this is really new. It sounds like this is his chronic pattern. I did discuss with him whether he has been on a medication for this such as tamsulosin etc. He states he does not recall but that in general he does not like to take medications. I did tell him that we could certainly try something at the present time. He declines. He reports the pain is adequately controlled. He has been evaluated by wound care. He denies any shortness of breath or chest pain. He is tolerating therapy well. His appetite is reasonably good. Brief therapy update: He is improving with regard to occupational therapy and is very cooperative and asks good questions. He is now minimum assistance for lower body dressing. That is an improvement from maximum assistance. He is now contact-guard assist for bed/chair/wheelchair transfers for occupational therapy. For bed/chair/wheelchair transfers he has minimum assistance which is also an improvement. He is improving and nearly all parameters for both occupational therapy and physical therapy. Update on medical problems we are actively monitoring or managin. Atrial fibrillation on Eliquis: His rhythm sounds regular at the present time. There is no evidence of active bleeding. He has had no neurologic changes. 2. Hypertension: His blood pressures continued to be elevated at times. However there variable. We will continue to observe at present as this is likely related to his rehabilitation and pain. 3. Multiple falls at home: Efforts are underway to reduce his fall risk. 4. Thrombocytopenia: This has apparently resolved. No evidence of active bleeding. 5. Difficulty urinating: He reports chronic BPH symptoms. As noted above, it is not clear if he has been tried on medications before but it sounds like he does not like to take medications. He declines anything at the present time. Exam Vital Signs: Temperature 97.6 F 05/06/17 08:00 Pulse Rate 71 05/06/17 08:00 Respiratory Rate 16 05/06/17 08:00 Blood Pressure 152/71 H 05/06/17 08:00 Pulse Oximetry 93 05/06/17 08:00 Height/Weight/BMI: Height 1.83 m Weight 86.2 kg Body Mass Index 26.1 - Constitutional Present: no acute distress, well nourished, well developed, cooperative Comments: He is awake and alert. He tends to get side tracked on his answers and I'm not certain totally about his orientation. However he is cooperative and in general is doing well. - Routine HEENT Exam Head: Present: normocephalic, atraumatic Eye: Present: EOMI ENT: Present: mucous membranes moist, oropharynx clear - Routine Neck Exam Present: supple, full ROM - Routine Respiratory Exam Present: CTA bilaterally. Absent: dyspnea, decreased breath sounds, rhonchi, stridor, wheezes - Routine Cardiovascular Exam Present: RRR, S1, S2. Absent: murmur, S3, S4 Comments: Once again he sounds as though he is in a regular rhythm. - Routine Abdominal Exam Present: soft, normoactive bowel sounds, non distended. Absent: tenderness - Routine Extremities Exam Present: no edema - Routine Skin Exam Present: dry, warm, wounds (right hip wound inspected by wound therapy. There is no surrounding erythema.) - Routine Neurological Exam Present: alert, oriented X3 (as noted above, his orientation is not totally clear and he tends to get sidetracked when answering questions.), CN II-XII intact. Absent: sensory deficit, motor deficit - Routine Psychiatric Exam Present: normal affect, cooperative IRU A/P (1) Status post-operative repair of closed fracture of right hip Current visit: Yes Status: Acute His pain control appears to be adequate. He is progressing nicely with both occupational and physical therapy. (2) Thrombocytopenia Current visit: Yes Status: Resolved (3) Atrial fibrillation Qualifiers: Atrial fibrillation type: paroxysmal Qualified Code(s): I48.0 - Paroxysmal atrial fibrillation Current visit: Yes Status: Chronic His rhythm sounds regular at the present time. He is tolerating Eliquis without difficulty. No evidence of bleeding. No evidence of neurologic compromise. (4) Benign essential hypertension Current visit: Yes Status: Chronic His blood pressures remain elevated from time to time. However there are not excessively high and we will monitor this at present. (5) Benign prostatic hyperplasia with lower urinary tract symptoms Qualifiers: Lower urinary tract symptom detail: nocturia Qualified Code(s): N40.1 - Benign prostatic hyperplasia with lower urinary tract symptoms; R35.1 - Nocturia Current visit: Yes Status: Chronic He continues to have symptoms of inadequate emptying. However I discussed with him the use of medications and he declines at the present time. He does not have symptoms of urinary infection and a recent urinalysis was negative. DVT Prophylaxis: Troy Echeverria Resuscitation Status: Full Code - Course Hospital Course: Sonu Lr MD: 05/03/17 11:17 He is getting started with therapy. Seems to be very cooperative. Blood pressures a little high at 150. We will repeat the platelet count tomorrow. 05/04/17 10:39 Pain starting to increase a bit with increased activity. He is making progress with therapy. Right hip wound is unremarkable. 05/06/17 10:25 Continues to have BPH symptoms but declines medicine. He is making good progress with therapy. - Interventions to Obtain Goals PT Treatment Plan: Functional Activities, Gait Training, Patient/Family Education, Therapeutic Exercise OT Treatment Plan: ADL (Basic Care), Balance Training, IADL, Ther. Exercise for ADL Goals Progress/Modifications: Time spent with patient and on floor reviewing data and documentin min Barriers to dismissal: Endurance, strength Medical decision-making: He still has a saline lock in place. I reviewed his medications and we will discontinue this. Secondly, his blood pressures remain elevated from time to time. Likely this is related to his discomfort and we will not change his medications at present. Thirdly, we discussed in length with the patient the issue of his BPH symptoms. It sounds like these are not new. He declines a trial of medication at present. I reviewed his therapy notes and he is making good progress. Continue to work with patient.
--- NOTE | 2017-05-06 13:13 | IRU Team Meeting ---
IRU Team Meeting - Nursing Bladder Assistive Devices Utilized:: Urinal, Absorbent Pad Bladder Management Level of Assist: Minimal Assistance Bladder Frequency of Accidents: No accidents Bowel Assistive Devices Utilized:: Medication, Absorbent Pad Bowel Management Level of Assist: Minimal Assistance Bowel Frequency of Accidents: No accidents Vital Signs: Vital Signs - 24 hr 05/05/17 16:00 05/05/17 20:37 05/06/17 08:00 Temperature 98.0 F 97.8 F 97.6 F Pulse Rate 65 70 71 Respiratory Rate 18 16 16 Blood Pressure 143/65 H 146/72 H 152/71 H Pulse Oximetry 93 97 93 Current Medications: Acetaminophen (Tylenol) 325 mg PO Q5H PRN PRN Reason: Discomfort Last Admin: 05/06/17 08:30 Dose: 325 mg Hydrocodone Bitart/Acetaminophen ([place] 7.5/325) 1 tab PO Q6H PRN PRN Reason: Pain Last Admin: 05/02/17 06:19 Dose: 1 tab Amiodarone HCl (Pacerone) 200 mg PO DAILY [facility] Last Admin: 05/06/17 08:30 Dose: 200 mg Amlodipine Besylate (Norvasc) 2.5 mg PO HS [facility] Last Admin: 05/05/17 20:37 Dose: 2.5 mg Apixaban (Eliquis) 5 mg PO BID [facility] Last Admin: 05/06/17 08:17 Dose: 5 mg Bisacodyl (Dulcolax) 10 mg RECTALLY DAILY PRN PRN Reason: Constipation Calcium/Vitamin D (Caltrate + D) 1 tab PO BID [facility] Last Admin: 05/06/17 08:17 Dose: 1 tab Cholecalciferol (Vit. D-3) 1,000 unit PO BID [facility] Last Admin: 05/06/17 08:18 Dose: 1,000 unit Cyanocobalamin (Vit. B-12) 1,000 mcg PO DAILY [facility] Last Admin: 05/06/17 08:18 Dose: 1,000 mcg Isopropyl Alcohol (Nozin Nasal Swab) 1 each PREETHI Q8H [facility] Last Admin: 05/06/17 06:46 Dose: 1 each Magnesium Hydroxide (Mom) 30 ml PO DAILY PRN PRN Reason: Constipation Olmesartan (Benicar) 20 mg PO DAILY [facility] Last Admin: 05/06/17 08:19 Dose: 20 mg Ondansetron HCl (Zofran Po) 4 mg PO Q6H PRN PRN Reason: Nausea Polyethylene Glycol (Miralax) 17 gm PO DAILY [facility] Last Admin: 05/06/17 08:19 Dose: 17 gm Senna/Docusate Sodium (Senna Plus Tablet) 2 tab PO BID [facility] Last Admin: 05/06/17 08:19 Dose: 2 tab Sodium Chloride (Deep Sea Nasal Moisturizing [place]) 2 spray EA NOSTRIL QID [facility] Last Admin: 05/06/17 08:20 Dose: 2 spray Terbinafine HCl (Lamisil At) 1 applic TOP DAILY [facility] Last Admin: 05/06/17 08:20 Dose: 1 applic Current Medical Issues: 1. Peripheral edema likely dependent, 2. Hypertension 3. BPH symptoms 4. Atrial fib on Eliquis Comments: I certify that I personally led the interdisciplinary team meeting and agree with comments, barriers and goals indicated. Team meeting was held in the patient's room with the patient and the following family members present: patient's , patient's daughter, patient's son Mr. Mcmanus is very cooperative. His appetite is good. He does have some peripheral edema likely related to dependency and low albumin plus or minus amlodipine. He does have occasional incontinence of urine but does have urinary frequency particularly at nighttime. There is some heel redness noted. He's had no nausea no vomiting and no chest pain. No evidence of shortness of breath. Discussed with patient's , patient and family today the issue of trying a medication for his BPH symptoms. He indicates he would prefer not to do that because he has tried several. His daughter will go home and check to see what he is tried in the past and then let us know. - Physical Therapy Bed, Chair, Wheelchair Transfer Assist: Stand By Assist/Supervision Ambulation Ability: Modified Independent Ambulation Distance: 250 Stair Climbing Ability: Maximal Assistance Number of Steps Climbed: 6 Car Transfer Ability: Stand By Assist/Supervision Comments: He is doing well with regard to gait and distance. He is still making progress toward his goals for transferring requiring decreased assistance. Patient and family would like him to return home independently except for using assistive devices. Recommendation for home health PT and OT as well. - Occupational Therapy Eating Ability: Independent Grooming Ability: Contact Guard Assistance Bathing Ability: Minimal Assistance Upper Body Dressing Ability: Stand By Assist/Supervision Lower Body Dressing Ability: Moderate Assistance Tub Transfer Assist: Patient Refuses Toileting Assist: Minimal Assistance Toilet Transfer Assist: Contact Guard Assistance Comments: He is very pleasant and cooperative with occupational therapy. He is demonstrating improvements on lower extremity dressing tasks, IADLs and increased strength and activity tolerance. - Goals Physical Therapy Goals: 05/06/17 Goals: 1.) Consistency with transfers demo'ing Mod I Occupational Therapy Goals: OT goals 05/06/17: 1.) LB dressing w/ mod I. 2.) Increased sustained activity tolerance to 2 RB during ADL routine. - Barriers to Discharge Barriers to Attaining Goals: Balance, Other (transfers, use of assistive devices ) - Care Plan Anticipated Length of Stay (days): 5 Anticipated DC Destination: Home, Self Care, Home Health Service I have led this team conference and agree with the plan.
[2017-05-06] MEDS: AMLODIPINE 2.5 MG TABLET PO SCH (21:03)
[2017-05-07] MEDS: NOZIN NASAL SWAB NAS SCH ×4 (00:35→21:01)
[2017-05-07] MEDS: POLYETHYL GLYCOL 3350 17gm PACKET PO SCH (08:21)
[2017-05-07] MEDS: AMIODARONE 200 MG TABLET PO SCH (08:22)
[2017-05-07] MEDS: APIXABAN 5 MG TABLET PO SCH ×2 (08:22→21:02)
[2017-05-07] MEDS: CALCIUM 600 + VIT D 400 TABLET PO SCH ×2 (08:22→21:02)
[2017-05-07] MEDS: CYANOCOBALAMIN (B-12) 500mcg TABLET PO SCH (08:23)
[2017-05-07] MEDS: SALINE 0.65% NASAL SPRAY 44 ML BOTTLE EA NOSTRIL SCH ×4 (08:24→21:01)
[2017-05-07] MEDS: SENNA + DOCUSATE TABLET PO SCH ×2 (08:25→21:02)
[2017-05-07] MEDS: TERFINAFINE 1% CREAM 12 G TUBE TOP SCH (08:26)
[2017-05-07] MEDS: AMLODIPINE 2.5 MG TABLET PO SCH (21:02)
[2017-05-08] MEDS: NOZIN NASAL SWAB NAS SCH ×3 (00:58→14:36)
[2017-05-08] MEDS: POLYETHYL GLYCOL 3350 17gm PACKET PO SCH (08:53)
[2017-05-08] MEDS: SALINE 0.65% NASAL SPRAY 44 ML BOTTLE EA NOSTRIL SCH ×4 (08:53→20:10)
[2017-05-08] MEDS: APIXABAN 5 MG TABLET PO SCH ×2 (08:54→20:08)
[2017-05-08] MEDS: CYANOCOBALAMIN (B-12) 500mcg TABLET PO SCH (08:55)
[2017-05-08] MEDS: CALCIUM 600 + VIT D 400 TABLET PO SCH ×2 (08:55→20:07)
[2017-05-08] MEDS: AMIODARONE 200 MG TABLET PO SCH (08:55)
[2017-05-08] MEDS: SENNA + DOCUSATE TABLET PO SCH ×2 (08:56→20:10)
[2017-05-08] MEDS: TERFINAFINE 1% CREAM 12 G TUBE TOP SCH (08:57)
[2017-05-08] MEDS: AMLODIPINE 2.5 MG TABLET PO SCH (20:08)
[2017-05-09] MEDS: NOZIN NASAL SWAB NAS SCH ×5 (06:45→22:10)
[2017-05-09] MEDS: CALCIUM 600 + VIT D 400 TABLET PO SCH ×2 (08:04→21:03)
[2017-05-09] MEDS: CYANOCOBALAMIN (B-12) 500mcg TABLET PO SCH (08:04)
[2017-05-09] MEDS: APIXABAN 5 MG TABLET PO SCH ×2 (08:04→21:03)
[2017-05-09] MEDS: SENNA + DOCUSATE TABLET PO SCH ×2 (08:04→21:03)
[2017-05-09] MEDS: AMIODARONE 200 MG TABLET PO SCH (08:05)
[2017-05-09] MEDS: POLYETHYL GLYCOL 3350 17gm PACKET PO SCH (08:05)
[2017-05-09] MEDS: SALINE 0.65% NASAL SPRAY 44 ML BOTTLE EA NOSTRIL SCH ×4 (08:06→22:10)
[2017-05-09] MEDS: TERFINAFINE 1% CREAM 12 G TUBE TOP SCH (09:00)
--- NOTE | 2017-05-09 10:37 | IRU Progress Note ---
- Subjective/Serverity of Illness Date: 05/09/17 Mr. Mcmanus was evaluated in his room on the inpatient rehabilitation. He now reports some right groin pain. Seems to be worse when he is up and about. He has had a previous hernia in this area. The area does hurt when he calms. However I did examine him and do not sense any presence of either femoral or inguinal hernia at this time. There is no mass present and no tenderness. His appetite is fairly good. He reports continued symptoms with his urination in terms of frequency and urgency. I did call his daughter Lina who indicates that the prescription home is for Flomax. Patient states that he tried it for a while but had lightheadedness and did not continue it. I suggested that we try a different agent such as Myrebetriq and he is open to that. He does have Medicare part D which should help as an outpatient. We will initiate that here in the hospital. Brief therapy update: Patient is cooperative with therapy. He is requiring minimal assistance to standby assistance for most activities. He is able to ambulate 260 feet with modified independent level. His bed/chair/wheelchair transfers for physical therapy are improving to minimum assistance. He will require a front-wheeled walker for safe ambulation at home. Update on medical problems we are actively monitoring or managin. Atrial fibrillation on Eliquis: Continues to sound as though he is in a regular rhythm. No active bleeding. 2. Hypertension: Blood pressures seem to be trending downward a bit. We will monitor carefully particularly with use of mirror better. 3. Multiple falls at home: Has not demonstrated loss of balance significant only. He is cooperative with therapy and making progress. 4. Thrombocytopenia: Resolved. 5. Difficulty urinating: Please see above discussion. He is willing to try a different agent and we will start Myrebetriq. Exam Vital Signs: Temperature 97.9 F 05/09/17 07:10 Pulse Rate 66 05/09/17 07:10 Respiratory Rate 18 05/09/17 07:10 Blood Pressure 143/71 H 05/09/17 07:10 Pulse Oximetry 95 05/09/17 07:10 Height/Weight/BMI: Height 1.83 m Weight 85.5 kg Body Mass Index 26.1 - Constitutional Present: well nourished, well developed, cooperative - Routine HEENT Exam Eye: Present: EOMI, PERRL ENT: Present: mucous membranes moist, dentition normal - Routine Neck Exam Present: supple - Routine Respiratory Exam Present: CTA bilaterally. Absent: dyspnea, decreased breath sounds, wheezes - Routine Cardiovascular Exam Present: RRR, S1, S2. Absent: murmur Comments: Currently his rhythm sounds regular. - Routine Abdominal Exam Present: soft, normoactive bowel sounds, non distended. Absent: tenderness, hernia (careful exam of right groin with patient coughing feels to reveal evidence of hernia nor mass nor tenderness.) - Routine Extremities Exam Present: edema (weight is noted to be down 4 kg.) - Routine Skin Exam Present: dry, warm - Routine Neurological Exam Present: alert, oriented X3, CN II-XII intact - Routine Psychiatric Exam Present: normal affect IRU A/P (1) Status post-operative repair of closed fracture of right hip Current visit: Yes Status: Acute Patient is progressing nicely with therapy. He should be safe for transfer to home in a couple of days. If front-wheeled walker is ordered and recommended. Length of knee probably 3 months. (2) Thrombocytopenia Current visit: Yes Status: Resolved (3) Atrial fibrillation Qualifiers: Atrial fibrillation type: paroxysmal Qualified Code(s): I48.0 - Paroxysmal atrial fibrillation Current visit: Yes Status: Chronic Rhythm sounds regular at the present time. Denies any lightheadedness. Denies palpitations. (4) Benign essential hypertension Current visit: Yes Status: Chronic Blood pressures overall are somewhat improved. (5) Benign prostatic hyperplasia with lower urinary tract symptoms Qualifiers: Lower urinary tract symptom detail: nocturia Qualified Code(s): N40.1 - Benign prostatic hyperplasia with lower urinary tract symptoms; R35.1 - Nocturia Current visit: Yes Status: Chronic Discussed with patient and patient's daughter Lina. He has tried Flomax in the past but had lightheadedness with that. We will try Myrebetriq. DVT Prophylaxis: Troy Echeverria Resuscitation Status: Full Code - Course Hospital Course: Sonu Lr MD: 05/03/17 11:17 He is getting started with therapy. Seems to be very cooperative. Blood pressures a little high at 150. We will repeat the platelet count tomorrow. 05/04/17 10:39 Pain starting to increase a bit with increased activity. He is making progress with therapy. Right hip wound is unremarkable. 05/06/17 10:25 Continues to have BPH symptoms but declines medicine. He is making good progress with therapy. 05/09/17 10:42 Patient continues to make progress with therapy. Complains of right groin pain but no hernia identified. He is willing to try medication for his urinary urgency and we will start Myrebetriq. - Interventions to Obtain Goals PT Treatment Plan: Functional Activities, Gait Training, Patient/Family Education, Therapeutic Exercise OT Treatment Plan: ADL (Basic Care), Balance Training, IADL, Ther. Exercise for ADL Goals Progress/Modifications: Time spent with patient and on floor reviewing data and documentin minutes Barriers to dismissal: Endurance, strength Medical decision-making: I discussed with the patient's daughter Lina as well as with the patient the issue of BPH. He is willing to try medication for this. I am aware of his hypertension but feel as though the best choice would be Myrebetriq. We will monitor his blood pressures carefully. He did not feel as though Flomax was appropriate due to lightheadedness. In addition, he does have some right groin pain today. Careful exam fails to reveal any evidence of hernia. He will require a front-wheeled walker at home and prescription is provided in this regard.
[2017-05-09] MEDS: MIRABEGRON 25mg TABLET PO SCH (13:37)
--- NOTE | 2017-05-09 15:20 | Progress Note ---
- Date 05/09/17 Subjective: Mr Mcmanus is seen today in follow up while resting in bed this afternoon. He has no complaints and jokes that he is being worked hard today. He continues to have blisters to bilateral heals that are being followed by wound team and Dr Horton. Denies pain, SOA or GI concerns. Bowels are moving. Objective Vital signs: Temperature 97.9 F 05/09/17 07:10 Pulse Rate 66 05/09/17 07:10 Respiratory Rate 18 05/09/17 07:10 Blood Pressure 143/71 H 05/09/17 07:10 Pulse Oximetry 95 05/09/17 07:10 Height/Weight/BMI: Height 1.83 m Weight 85.5 kg Body Mass Index 26.1 - Constitutional Present: no acute distress, well nourished, well developed - Routine HEENT Exam Eye: Present: EOMI ENT: Present: mucous membranes moist, dentition normal - Routine Respiratory Exam Present: CTA bilaterally. Absent: wheezes - Routine Cardiovascular Exam Present: RRR. Absent: murmur - Routine Abdominal Exam Present: soft, normoactive bowel sounds, non distended. Absent: tenderness - Routine Extremities Exam Present: normal capillary refill - Routine Skin Exam Present: intact, dry, warm Comments: Blisters to bilateral heals. - Routine Neurological Exam Present: alert, oriented X3, CN II-XII intact, moving all extremities - Routine Lymphatic Exam Lymphatic: Absent: adenopathy - Routine Psychiatric Exam Present: normal affect Results - Labs CBC & Chem 7: 05/04/17 04:31 05/09/17 14:27 Assessment and Plan Assessment and Plan: New Conditions Since Acute Admission on 04/27/17: Hyponatremia. Acute blood loss anemia - no transfusion required, following right hip endoprosthesis, 04/2017. Thrombocytopenia. S/P right hip endoprosthesis - Dr. Leggett, 04/2017. Generalized debility and gait instability - acute on chronic. Osteopenia. Chronic Conditions Present Prior to Acute Admission on 04/27/17: Chronic a-fib with chronic anticoagulation on Eliquis. Hypertension. Hyperlipidemia. Chronic constipation. BPH. 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 Chronic thrombocytopenia. Plan Overall appears to be medically stable. Did recheck chemistry today given hyponatremia however it was resolved and NA today is 137. Evaluated blisters to bilateral ankles. Being followed by wound team and Dr Horton. Continue to use arcadio boots while in bed. Blood pressure has been intermittently elevated- continue to monitor. Reported BPH symptoms, Myrbetriq started today - Physician Narrative Physician: Austin Mota MD Narrative: Date: 05/09/17 Time: 1628 Have independently interviewed and examined pt. Chart reviewed. Case discussed with my LEAD INJECTION MOLD TECHNICIAN. Care plan developed with my supervision; agree with above. Doing well overall. Pain controlled. Tolerating therapy. Breathing well except for cough, worse when lays down. No nausea or acid reflux. Eating well. Bowel moving-decline Miralax as thought stools getting to loose. Lungs: decreased, no distress CV: regular AB: soft nt/nd MSE: awake alert appropriate Plan: Continue with IRU to maximize functional status. Encourage continued participation with therapy. Will decrease Senna Plus to 1 tablet twice a day as bowels moving - change Miralax to as needed. Watch for constipation with decrease of medications (pt chronically with constipation). Hospital Course Summary Disclaimer: The visit summary below is not to be considered part of the above Progress Note. Hospital Course: Plan Overall appears to be medically stable. Did recheck chemistry today given hyponatremia however it was resolved and NA today is 137. Evaluated blisters to bilateral ankles. Being followed by wound team and Dr Horton. Continue to use arcadio boots while in bed. Blood pressure has been intermittently elevated- continue to monitor. Reported BPH symptoms, Myrbetriq started today
[2017-05-09] MEDS ORDERED: POLYETHYL GLYCOL 3350 17gm PACKET PO PRN (16:36)
--- NOTE | 2017-05-09 17:54 | Wound Care Progress Note ---
Wound Center Progress Note: Into see pt who we had assessed previously. Both heels are protected with yellow arcadio boots and floated off the bed with pillows. When boots and mepilexs removed from heels no changes in DTI's treated with betidine and Mepilex. Coccyx area intact skin just slight redness and again covered with a Mepilex.
[2017-05-09] MEDS: AMLODIPINE 2.5 MG TABLET PO SCH (21:03)
[2017-05-10] MEDS: NOZIN NASAL SWAB NAS SCH ×3 (06:39→22:08)
[2017-05-10] MEDS: CALCIUM 600 + VIT D 400 TABLET PO SCH ×2 (08:44→22:08)
[2017-05-10] MEDS: APIXABAN 5 MG TABLET PO SCH ×2 (08:44→22:08)
[2017-05-10] MEDS: CYANOCOBALAMIN (B-12) 500mcg TABLET PO SCH (08:44)
[2017-05-10] MEDS: SENNA + DOCUSATE TABLET PO SCH ×2 (08:45→22:08)
[2017-05-10] MEDS: SALINE 0.65% NASAL SPRAY 44 ML BOTTLE EA NOSTRIL SCH ×4 (08:46→22:07)
[2017-05-10] MEDS: AMIODARONE 200 MG TABLET PO SCH (08:46)
[2017-05-10] MEDS: MIRABEGRON 25mg TABLET PO SCH (08:46)
[2017-05-10] MEDS: TERFINAFINE 1% CREAM 12 G TUBE TOP SCH (08:50)
--- NOTE | 2017-05-10 10:45 | IRU Progress Note ---
- Subjective/Serverity of Illness Date: 05/10/17 Mr. Mcmanus was evaluated in his room. He reports some weakness in the right wrist without actual pain. Onset was a number of months ago. He has noted this when he tries to support himself or use a walker. Again he states there is no discomfort but simply reduced strength in the right wrist area. With regard to his BPH symptoms, we started Myrebetriq yesterday. He states that he had a wild dream but other than that had no ill effects from it. I told him it may take up to a month or even longer to decide if it is beneficial. He has not noted any change in his urination but did have some urinary incontinence last night during a deep sleep he states. Brief therapy update: He is able to transfer (bed/chair/wheelchair transfers) with minimum assistance. Ambulatory ability is markedly improved. He is able to walk over 800 feet at modified independent level. Previously described right groin pain only present on far abduction he states. Ambulation is without discomfort significantly. Update on medical problems we are actively monitoring or managin. Atrial fibrillation on Eliquis: Tolerating Eliquis without known side effects. Continues to sound regular. 2. Hypertension: Blood pressures continued to be slightly elevated at 140-150 systolic. 3. Multiple falls at home: He is making progress with therapy. 4. Thrombocytopenia: Resolved. 5. Difficulty urinating: Started Myrebetriq yesterday without identifiable change at present. However it may take 1-2 months to notice an improvement. Patient was advised of this. Exam Vital Signs: Temperature 98.6 F 05/10/17 07:22 Pulse Rate 68 05/10/17 07:22 Respiratory Rate 16 05/10/17 07:22 Blood Pressure 153/70 H 05/10/17 07:22 Pulse Oximetry 91 05/10/17 07:22 Height/Weight/BMI: Height 1.83 m Weight 85.5 kg Body Mass Index 26.1 - Constitutional Present: no acute distress, well nourished, well developed, cooperative - Routine HEENT Exam Head: Present: normocephalic Eye: Present: EOMI ENT: Present: mucous membranes moist, dentition normal - Routine Neck Exam Present: supple - Routine Respiratory Exam Present: CTA bilaterally. Absent: dyspnea, decreased breath sounds, wheezes - Routine Cardiovascular Exam Present: RRR (continues to sound as though he is in a regular rhythm despite history of atrial fibrillation.), S1, S2. Absent: murmur - Routine Abdominal Exam Present: soft, normoactive bowel sounds, non distended. Absent: tenderness - Routine Extremities Exam Present: no edema - Routine Skin Exam Present: dry, warm - Routine Neurological Exam Present: alert, oriented X3, CN II-XII intact - Routine Psychiatric Exam Present: normal affect IRU A/P (1) Status post-operative repair of closed fracture of right hip Current visit: Yes Status: Acute Pain control is adequate at present. He is improving with therapy. Tinetti balance assessment however continues to reveal that he is at high risk with regard to balance. He will be ambulating with a front-wheeled walker which we strongly recommend he continue for the time being. (2) Thrombocytopenia Current visit: Yes Status: Resolved (3) Atrial fibrillation Qualifiers: Atrial fibrillation type: paroxysmal Qualified Code(s): I48.0 - Paroxysmal atrial fibrillation Current visit: Yes Status: Chronic Tolerating anticoagulant without difficulty. Sounds as though he is in a regular rhythm. (4) Benign essential hypertension Current visit: Yes Status: Chronic (5) Benign prostatic hyperplasia with lower urinary tract symptoms Qualifiers: Lower urinary tract symptom detail: nocturia Qualified Code(s): N40.1 - Benign prostatic hyperplasia with lower urinary tract symptoms; R35.1 - Nocturia Current visit: Yes Status: Chronic No change in his urinary symptoms at present. Just started Myrebetriq yesterday. May take 1-2 months to fully assess. DVT Prophylaxis: Troy Echeverria Resuscitation Status: Full Code - Course Hospital Course: Sonu Lr MD: 05/03/17 11:17 He is getting started with therapy. Seems to be very cooperative. Blood pressures a little high at 150. We will repeat the platelet count tomorrow. 05/04/17 10:39 Pain starting to increase a bit with increased activity. He is making progress with therapy. Right hip wound is unremarkable. 05/06/17 10:25 Continues to have BPH symptoms but declines medicine. He is making good progress with therapy. 05/09/17 10:42 Patient continues to make progress with therapy. Complains of right groin pain but no hernia identified. He is willing to try medication for his urinary urgency and we will start Myrebetriq. 05/10/17 10:48 Ambulatory ability markedly improved. Right groin pain minimal and only with abduction which would be anticipated. Start Myrebetriq and no significant changes at present. - Interventions to Obtain Goals PT Treatment Plan: Functional Activities, Gait Training, Patient/Family Education, Therapeutic Exercise OT Treatment Plan: ADL (Basic Care), Balance Training, IADL, Ther. Exercise for ADL Goals Progress/Modifications: Patient is making progress with therapy. BPH symptoms continue to be an issue. Anticipate dismissal home tomorrow.
[2017-05-10 21:26] VITALS: PULSE 69; RESP 16
[2017-05-10] MEDS: AMLODIPINE 2.5 MG TABLET PO SCH (22:09)
[2017-05-11] MEDS: NOZIN NASAL SWAB NAS SCH ×3 (06:15→13:25)
[2017-05-11 07:56] VITALS: BP 147/78; TEMP 98.2; O2SAT 94
[2017-05-11] MEDS: SALINE 0.65% NASAL SPRAY 44 ML BOTTLE EA NOSTRIL SCH ×2 (08:21→13:25)
[2017-05-11] MEDS: SENNA + DOCUSATE TABLET PO SCH (08:22)
[2017-05-11] MEDS: CYANOCOBALAMIN (B-12) 500mcg TABLET PO SCH (08:22)
[2017-05-11] MEDS: MIRABEGRON 25mg TABLET PO SCH (08:22)
[2017-05-11] MEDS: AMIODARONE 200 MG TABLET PO SCH (08:23)
[2017-05-11] MEDS: APIXABAN 5 MG TABLET PO SCH (08:23)
[2017-05-11] MEDS: CALCIUM 600 + VIT D 400 TABLET PO SCH (08:23)
[2017-05-11] MEDS: TERFINAFINE 1% CREAM 12 G TUBE TOP SCH (08:23)
--- NOTE | 2017-05-11 11:36 | IRU Progress Note ---
- Subjective/Serverity of Illness Date: 05/11/17 Mr. Mcmanus was interviewed and examined in his room with his daughter present. Several questions were addressed in terms of his heel wound, issue tuberosity redness, bathing etc. He has done well with therapy. He is felt to be safe to go home. He will go home with home health. He will not require Lovenox because he is on Eliquis. 1. Atrial fibrillation on Eliquis: He will remain on the Eliquis. 2. Hypertension: Blood pressures a bit better. Continue current meds. 3. Multiple falls at home: He is making progress with therapy. 4. Thrombocytopenia: Resolved. 5. Difficulty urinating: We started Myrebetriq couple days ago. No change has been noted. I recommended he stay on this at least a month before deciding whether it was beneficial or not. The patient does not have a primary care physician. I discussed this with the patient and his daughter. Recommended strongly that he finally so we can send records and so that he can have adequate follow-up.. Exam Vital Signs: Temperature 98.2 F 05/11/17 07:55 Pulse Rate 69 05/11/17 07:55 Respiratory Rate 16 05/11/17 07:55 Blood Pressure 147/78 H 05/11/17 07:55 Pulse Oximetry 94 05/11/17 07:55 Height/Weight/BMI: Height 1.83 m Weight 85.5 kg Body Mass Index 26.1 - Constitutional Present: no acute distress, well nourished, well developed, cooperative - Routine HEENT Exam Head: Present: normocephalic Eye: Present: EOMI ENT: Present: mucous membranes moist, dentition normal - Routine Respiratory Exam Present: CTA bilaterally. Absent: wheezes - Routine Cardiovascular Exam Present: RRR, S1, S2. Absent: murmur Comments: Although he has a history of atrial fibrillation he sounds regular once again. - Routine Abdominal Exam Present: soft, normoactive bowel sounds, non distended. Absent: tenderness - Routine Extremities Exam Present: edema (trace edema only) - Routine Skin Exam Present: dry, warm Comments: I inspected his heel wound yesterday. On the right heel there is an area of ischemia although the skin is not broken. This is on the lateral aspect of the posterior heel and is red. On the left heel there is an open wound which is not stage IV at present. There is no evidence of active infection at present on either side. Today, we inspected the presacral and buttock area with his daughter present area redness is noted on both issue tuberosities but no evidence of presacral redness. Skin is not broken. - Routine Neurological Exam Present: alert, oriented X3, CN II-XII intact - Routine Psychiatric Exam Present: normal affect IRU A/P (1) Status post-operative repair of closed fracture of right hip Current visit: Yes Status: Acute Patient has done well with therapy. He is stable for dismissal to home with home health follow-up. (2) Thrombocytopenia Current visit: Yes Status: Resolved (3) Atrial fibrillation Qualifiers: Atrial fibrillation type: paroxysmal Qualified Code(s): I48.0 - Paroxysmal atrial fibrillation Current visit: Yes Status: Chronic He will remain on (4) Benign essential hypertension Current visit: Yes Status: Chronic (5) Benign prostatic hyperplasia with lower urinary tract symptoms Qualifiers: Lower urinary tract symptom detail: nocturia Qualified Code(s): N40.1 - Benign prostatic hyperplasia with lower urinary tract symptoms; R35.1 - Nocturia Current visit: Yes Status: Chronic Prescription for Myrebetriq will be provided. DVT Prophylaxis: Troy Echeverria Resuscitation Status: Full Code - Course Hospital Course: Sonu Lr MD: 05/03/17 11:17 He is getting started with therapy. Seems to be very cooperative. Blood pressures a little high at 150. We will repeat the platelet count tomorrow. 05/04/17 10:39 Pain starting to increase a bit with increased activity. He is making progress with therapy. Right hip wound is unremarkable. 05/06/17 10:25 Continues to have BPH symptoms but declines medicine. He is making good progress with therapy. 05/09/17 10:42 Patient continues to make progress with therapy. Complains of right groin pain but no hernia identified. He is willing to try medication for his urinary urgency and we will start Myrebetriq. 05/10/17 10:48 Ambulatory ability markedly improved. Right groin pain minimal and only with abduction which would be anticipated. Start Myrebetriq and no significant changes at present. 05/11/17 11:38 Questions were addressed with patient and daughter. Safe for dismissal home with home health. Wound care will be followed by home health nurses as well as wound clinic. - Interventions to Obtain Goals PT Treatment Plan: Functional Activities, Gait Training, Patient/Family Education, Therapeutic Exercise OT Treatment Plan: ADL (Basic Care), Balance Training, IADL, Ther. Exercise for ADL Goals Progress/Modifications: Dismissed today.
--- NOTE | 2017-05-11 15:13 | Discharge Summary ---
Discharge Information Date of admission: 05/01/17 15:03 Anticipated date of discharge: 05/11/17 Attending Physician: Sonu Lr MD Primary care physician: Denton Newell DO Consults: 05/01/17 16:17 Physician Consult [CONS] Routine Consulting Provider: Warren Jeffrey Reason For Exam: Metabolic Bone Disease Ordering Provider has Notified [facility]: No 05/01/17 17:21 Physician Consult [CONS] Routine Consulting Provider: Austni Mota Reason For Exam: medical management Ordering Provider has Notified [facility]: No 05/01/17 19:22 W[facility] Consult [CONS] Routine Reason for consultation: odin heel wounds, sacral redness - Discharge Diagnosis (1) Status post-operative repair of closed fracture of right hip Status: Acute (2) Thrombocytopenia Status: Resolved (3) Atrial fibrillation Status: Chronic (4) Benign essential hypertension Status: Chronic (5) Benign prostatic hyperplasia with lower urinary tract symptoms Status: Chronic 1. Status post repair of right closed femoral fracture 2. Thrombocytopenia-resolved 3. Benign essential hypertension 4. Bilateral heel decubitus lesions, initial findings of which were present prior to admission 5. Benign prostatic hypertrophy with urinary frequency, nocturia and urgency - Laboratory Labs: 05/04/17 04:31 05/09/17 14:27 History of Present Illness HPI: Mr. fowler was admitted to the acute care hospital after having fallen at home on 04/27/2017. He did not lose consciousness nor did he feel lightheaded or dizzy. He simply lost his balance. CT scan demonstrated a fracture of the right hip when he was admitted to the hospitalist service. He does not have a primary care physician. Dr. Leggett took him to surgery on April 29, 2017 for a right hip hemiarthroplasty. Surgery had been delayed for a few days because the patient was on Eliquis for his atrial fibrillation. He has a history of atrial fibrillation, hypertension, and constipation. He had multiple functional deficits in addition to his medical problems and for this reason was admitted to acute inpatient rehabilitation. There was redness noted on both heels at the time of admission. Hospital Course This is a general summary of the patient's hospital course. For more details refer to the complete medical record. Mr. fowler was admitted to acute inpatient rehabilitation on May 02, 2017. He had recently suffered a hip fracture which had been repaired. He was at risk for wound infection, bleeding, neurologic problems since he had been off of his Eliquis for a time. He was seen by occupational therapy. He was independent functioning regarding eating upon admission and dismissal. Grooming was at contact guard assistance initially and modified independent ultimately. Bathing ability was performed with minimum assistance initially and standby assistance ultimately. Upper body dressing was minimum assistance initially and modified independent ultimately. Lower body dressing was maximum assistance initially and minimum assistance ultimately. Toileting assistance was initially performed with contact-guard assistance and ultimately standby assistance. Toilet transfer assistance was initially contact-guard and ultimately modified independent. Bed/chair/ wheelchair transfers were initially contact-guard and ultimately standby assistance. Physical therapy also worked with the patient. For bed/chair/wheelchair transfers he initially required maximum assistance and ultimately modified independent level. Toileting assistance was initially performed with total assistance and ultimately able to be performed with modified independent functioning. Car transfers required minimum assistance initially and ultimately standby assistance. Ambulation ability was initially contact-guard and ultimately modified independent. He was able to ambulate 180 feet with contact guard assistance upon admission. During the hospitalization he was up to 888 feet with modified independent level. He was able to climb 6 steps initially with maximum assistance and ultimately 12 steps with modified independent functioning. Eliquis was restarted. He had no evidence of neurologic decline and no evidence of active bleeding. His hemoglobin was stable at around 10 g percent. His appetite was good. His bowels moved adequately. He had no nausea no vomiting and denies shortness of breath or chest pain. Patient was noted to have some redness on the issue tuberosities bilaterally. There was no redness in the presacral area. He was seen by wound team and Mepilex was placed in the upper buttock area. He also was noted to have redness on both heels at the time of admission. Foam booties were placed to keep the heel suspended off the bed. The right heel developed an area of darkened ischemia without break in the skin. Left heel did have an open wound which developed after Mepilex had been placed. However there was no evidence of infection area to this was all discussed with the patient and his daughters and we recommend continued use of Mepilex along with home health monitoring of the wounds. He will be seen back in the wound clinic as well. It was recommended that he continue to use the foam booties at home and to offload pressure from the heels when he is in bed or chair. He was felt to be stable for dismissal back to his home with home health assistance for PT, OT and half-way. He did not require any narcotic pain medication upon dismissal and will use Tylenol only. He states he does not have a primary care provider at present and I urged him and his daughter to find one and let us know so we can send appropriate records. Hospital course: Plan Overall appears to be medically stable. Did recheck chemistry today given hyponatremia however it was resolved and NA today is 137. Evaluated blisters to bilateral ankles. Being followed by wound team and Dr Horton. Continue to use arcadio boots while in bed. Blood pressure has been intermittently elevated- continue to monitor. Reported BPH symptoms, Myrbetriq started today Time spent with patient: greater than 35 minutes Discharge Plan - Med Rec/Dispo Referrals/Follow Up: Richard Horton MD [Physician] - (Wound Clinic on 05/18/17 at 2:00 pm for follow-up. ) Wolfgang Leggett MD [Physician] - ([facility] on 05/19/17 at 8:30 am for Post-Op follow-up. Check-in at 8: 00 am. [facility] [address] [place] [address] [place] [id number]) Prescriptions: New Mirabegron [Myrbetriq] 25 mg PO DAILY #30 tab Terbinafine Cream [LamISIL AT] 1 applicatio TOP DAILY tube Acetaminophen [Tylenol] 325 - 650 mg PO Q4HPRN PRN tab PRN Reason: Pain Continue Amiodarone [Pacerone] 200 mg PO DAILY Amlodipine [Norvasc] 2.5 mg PO HS [place]-3/Dha/Epa/Fish Oil [Fish Oil 1,000 mg Softgel] 1,000 mg PO BID Olmesartan Medoxomil 20 mg PO DAILY Bisacodyl Supp [Dulcolax] 10 mg RECTALLY DAILY PRN suppositor PRN Reason: Constipation Calcium 600 + D [Caltrate + D] 1 tab PO BID tab Milk of Magnesia [Mom] 30 ml PO DAILY PRN udc PRN Reason: Constipation PEG 3350 17gm PACKET [Miralax] 17 gm PO DAILY packet Cholecalciferol [Vit. D-3] 1,000 unit PO BID #0 Apixaban [Eliquis] 5 mg PO BID #0 Cyanocobalamin (Vitamin B-12) [Vitamin B-12] 1,000 mcg PO DAILY Senna + Docusate [Senna Plus Tablet] 2 tab PO BID tab Discontinued Acetaminophen [Tylenol] 325 mg PO Q5H PRN tab PRN Reason: Discomfort Hydrocodone/APAP 7.5/325 [[place] 7.5/325] 1 tab PO Q6H PRN tab PRN Reason: Pain Nozin Nasal Swab 1 each PREETHI Q8H appl Sodium Chloride [Deep Sea] 2 spray EA NOSTRIL QID spray - Disposition 01 Discharged Home, Self-Care
--- NOTE | 2017-05-11 15:44 | Letter to Referring Physician ---
Dear Dr. Mirza, This is a brief note to bring you up-to-date on the status of Remberto Mcmanus and his stay on the acute inpatient rehabilitation unit at [facility]. He has not seen you in the past but it is my understanding that he or his family have asked that you accept him as a patient. Mr. Mcmanus was admitted to the acute the [facility] hospital on 04/27/17 for left hip fracture. He was taken to surgery by Dr. Leggett on 04/29/2017 (surgery was delayed for a couple of days due to the fact that he was on Eliquis for his atrial fibrillation). The patient was stabilized while on the acute level and admitted to inpatient rehabilitation unit at [facility] on May 01, 2017. While on inpatient rehabilitation, this patient was seen by occupational therapy and physical therapy and improved overall in their functional ability. We also monitored and managed the patient's atrial fib and anticoagulation as well as hypertension while on Acute Rehab. He also had symptoms of prostatism. He had been on Flomax at home but this caused lightheadedness. For this reason we did prescribe Myrebetriq 25 mg daily and he is to follow-up with you in this regard. Please see a copy of the history and physical examination as well as discharge summary enclosed with this letter for further details. He does have bilateral heel decubitus lesions. The right heel does not demonstrate broken skin but is a darkened area. Left heel does have a small ulcer present without infection. He has bilateral ischial tuberosity red areas but no break in the skin. Mepilex is applied to all areas and home health is involved in monitoring this. He will also receive home health physical therapy and occupational therapy. Arrangements have also been made for him to follow up in the Wound Clinic for the skin area. Thank you for allowing us to be involved in this nice patient's care. Please contact me directly should you have any questions regarding their stay on the inpatient rehabilitation unit. Sincerely, Sonu Lr M.D.
--- NOTE | 2017-05-11 16:18 | Wound Care Progress Note ---
Wound Center Progress Note: Pt seen for wound follow up. Pt sitting up in chair, moved to bed for assessment , family at bedside, no complaints of pain. Pt has bilateral heel wounds. R lateral heel: DTI, skin intact, nonblanchable purplish discoloration, no drainage. Periwound: blanchable erythema, 2.3 (L) x 2.7 (W). L mid heel: DTI, nonblanchable purple discoloration, skin not intact, scant sanguineous drainage. Periwound: sloughing skin, blanchable erythema, 5 (L) x 5.2 (W). Dressings to bilateral heels: L heel: Aquacel Ag, large Mepilex, foam boot. R heel: large Mepilex, foam boot. Education given r/t floating heels while sitting /in bed and repositioning in bed to avoid pressure areas to buttocks. Pt is getting ready to discharge to home.
== END 2017-05-11 04:30 | disposition home health service (06) | DRG 560 ==
PROVIDERS: ADMIT Internal Medicine; ATTEND Internal Medicine